=== PATIENT | male | born 1940 | race Caucasian/White ===

== ENCOUNTER 2016-11-25 12:37 | Emergency (ER) | payer MEDICARE, OTHER ==
[~2016-11-25] VITALS: Ht 175.3 cm; Wt 172.4 kg
--- NOTE | ~2016-11-25 | EKG ---
[facility] [address] [place], [place] [address] Draft EK completed, results pending confirmation PATIENT NAME: SERGIO ROA Electrocardiogram DATE OF : 42 PHYSICIAN: PRELIMINARY REPORT #: [id number] REPORT IS CONFIDENTIAL AND NOT TO BE RELEASED WITHOUT AUTHORIZATION
[~2016-11-25 12:37] MED LIST: FUROSEMIDE40 MG PO; GLIPIZIDE ER5 MG PO; LISINOPRIL20 MG PO
[2016-11-25] MEDS ORDERED: LASIX40 MG PO (13:01)
[2016-11-25] MEDS ORDERED: PRINIVIL20 MG PO (13:01)
[2016-11-25] MEDS ORDERED: ASPIRIN81 MG PO (13:01)
== END 2016-11-25 14:59 | disposition short-term general hospital (02) ==
LOC: ED 12:37
DX: I63.9 Cerebral infarction, unspecified (principal); G81.94 Hemiplegia, unspecified affecting left nondominant side; Z88.0 Allergy status to penicillin; Z88.5 Allergy status to narcotic agent; Z79.82 Long term (current) use of aspirin; Z79.899 Other long term (current) drug therapy
CPT/HCPCS: 70450; 80053; 83605; 85025; 93005; 93010; 96374; 99285; G0480; J2997

== ENCOUNTER 2017-01-29 17:58 | Emergency (ER) | payer MEDICARE, OTHER ==
[~2017-01-29] VITALS: Ht 175.3 cm; Wt 172.4 kg
[~2017-01-29 17:58] MED LIST changes: +ASPIRIN81 MG PO; +LASIX40 MG PO; +PRINIVIL20 MG PO
== END 2017-01-29 21:26 | disposition home or self-care (01) ==
LOC: ED 17:58
DX: Z02.89 Encounter for other administrative examinations (principal); I10 Essential (primary) hypertension; E11.9 Type 2 diabetes mellitus without complications; E66.01 Morbid (severe) obesity due to excess calories; Z87.891 Personal history of nicotine dependence; Z88.0 Allergy status to penicillin; Z88.5 Allergy status to narcotic agent; Z79.899 Other long term (current) drug therapy; Z79.82 Long term (current) use of aspirin; Z86.73 Personal history of transient ischemic attack (TIA), and cerebral infarction without residual deficits; Z59.1 Inadequate housing
CPT/HCPCS: 80053; 80176; 81001; 84443; 85025; 99283; G0480

== ENCOUNTER 2017-06-01 05:44 | Emergency (ER) | payer MEDICARE ==
[~2017-06-01] VITALS: Ht 175.3 cm; Wt 169.2 kg
[2017-06-01] MEDS ORDERED: KEFLEX500 MG PO (08:36)
[2017-06-01] MEDS ORDERED: LISINOPRIL10 MG PO (08:47)
[2017-06-02] MEDS ORDERED: GLIPIZIDE XL5 MG PO (11:54)
[2017-06-02] MEDS ORDERED: LISINOPRIL20 MG PO (11:56)
[2017-06-02] MEDS ORDERED: LASIX20 MG PO (11:56)
[2017-06-02] MEDS ORDERED: ATORVASTATIN CA80 MG PO (11:57)
[2017-06-02] MEDS ORDERED: KEFLEX500 MG PO (11:58)
[2017-06-08] MEDS ORDERED: KEFLEX500 MG PO (09:19)
[2017-06-08] MEDS ORDERED: LISINOPRIL10 MG PO (09:19)
== END 2017-06-01 09:00 | disposition home or self-care (01) ==
LOC: ED 05:44
PROC: BT40ZZZ Ultrasonography of Bladder (ICD-10-PCS; principal; 2017-06-01)
DX: N39.0 Urinary tract infection, site not specified (principal); E11.65 Type 2 diabetes mellitus with hyperglycemia; I11.0 Hypertensive heart disease with heart failure; I50.9 Heart failure, unspecified; Z91.14 Patient's other noncompliance with medication regimen; Z87.891 Personal history of nicotine dependence; Z88.0 Allergy status to penicillin; Z88.5 Allergy status to narcotic agent; Z79.84 Long term (current) use of oral hypoglycemic drugs; Z79.899 Other long term (current) drug therapy; Z79.82 Long term (current) use of aspirin
CPT/HCPCS: 51798; 74176; 80053; 81001; 85025; 87077; 87088; 87186; 96374; 99284; J0696; J7030

== ENCOUNTER 2017-06-01 20:29 | Observation (INO) | payer MEDICARE ==
[~2017-06-01] VITALS: Ht 175.3 cm; Wt 160.3 kg
[~2017-06-01 20:29] MED LIST changes: +KEFLEX500 MG PO; +LISINOPRIL10 MG PO
--- NOTE | 2017-06-02 07:15 | NUR ---
PT ARRIVED TO FLOOR VIA STRETCHER WITH PAD EXTRACTION TENDER AT 0650. PT IS ALERT AND ORIENTED. POOR HISTORIAN. RAMBLES FREQUENTLY AND HAS DIFFICULTY FOCUSING. VS STABLE. MULTIPLE BAGS OF BELONGINGS IN ROOM WITH PT. PT RESTING IN BED. STATES MOTOR HOME THAT THEY USED TO LIVE IN WAS STOLEN. UNSURE OF PLACEMENT AT IN.
--- NOTE | 2017-06-02 08:50 | NUR ---
PATIENT SITTING UP IN BED. PATIENT FINISHED BREAKFAST. PATIENT ASKED MY NATIONALITY AND STARTED GUESSING OUT LOUD. PATIENT WOULD TALK IN [place]LLAN AT TIMES. PATIENT KEPT ON ABOUT HOW HE WENT TO [facility] FOR SOMETHING HE DIDN'T DO. FRESH ICE WATER GIVEN. HANDS AND FACE WASHED. ORAL CARE DONE. NO OTHER NEEDS AT THIS TIME.
--- NOTE | 2017-06-02 09:00 | NUR ---
PT SITTING UP IN BED AWAKE AND ALERT. COMMUNITY HEALTH WORKER DEEPTI IN WITH PT DISCUSSING DC PLAN
--- NOTE | 2017-06-02 10:26 | NUR ---
PT UP WALKING IN HAYNES. WALKED 50 FT THEN NEEDED TO SIT DOWN. 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
--- NOTE | 2017-06-02 10:41 | NUR ---
PT UP WITH ASSISTANCE. WALKED 50 FEET IN HALLWAY AND THEN HAD TO REST. DROPPED TO 88% WITH ACTIVITY. TOOK LESS THAN ONE MINUTE TO RECOVER BACK TO 92-94% AT REST.
--- NOTE | 2017-06-02 10:42 | NUR ---
ASSISSTED REFLESHER AMUBLATE PT IN THE HALLWAY AND BACK TO CHAIR IN ROOM. CALL LIGHT WITHIN REACH. NO FURTHER REQUESTS AT THIS TIME.
--- NOTE | 2017-06-02 11:11 | NUR ---
PT BACK TO CHAIR FROM BATHROOM. 1PA WITH FWW. URINE IS DARK AND PUTRID SMELLING. PT STATES IT SMELLS BAD BECAUSE OF MEDICATION HE TAKES. PT IS DIFFICULT OF HEARING AND DOES NOT ALWAYS FOLLOW DIRECTIONS
--- NOTE | 2017-06-02 11:17 | NUR ---
PER DR PENA REQUEST TO CALL PT COORDINATOR INTEGRATED MARKETING, EDILMA RAND. I CALLED NO ANSWER SO MESSAGE WAS LEFT FOR HER TO CALL. 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 THEN HE WAS MOVED BACK TO THIS SIDE OF THE [facility], WHERE SHE HAD FOUND THE ONLY PLACE THAT WOULD TAKE HIM SUCH A ALF OR ASSISTED LIVING WAS [facility] AT THEIR [facility] FAC[facility] IN [place] WHERE HE WENT, BUT GOT KICKED OUT OF THERE WITH A NOTICE THAT HE COULD NEVER GO BACK THERE. SHE STATED THERE IS A WARRENT FOR HIS ARREST AND THAT SHE WOULD SEE WHAT SHE COULD DO ABOUT GETTING HIM PICKED UP HERE AND TAKEN BACK TO SNF, DR PENA IS SAYING THERE IS NO MEDICAL REASON TO KEEP HIM HERE IN THE HOSPITAL.
[2017-06-02] MEDS ORDERED: GLIPIZIDE XL5 MG PO (11:54)
[2017-06-02] MEDS ORDERED: LASIX20 MG PO (11:56)
[2017-06-02] MEDS ORDERED: LISINOPRIL20 MG PO (11:56)
[2017-06-02] MEDS ORDERED: ATORVASTATIN CA80 MG PO (11:57)
[2017-06-02] MEDS ORDERED: KEFLEX500 MG PO (11:58)
--- NOTE | 2017-06-02 11:58 | NUR ---
MED REC COMPLETE
--- NOTE | 2017-06-02 12:13 | NUR ---
PT GIVEN DISCHARGE INFORMATION, EDUCATION AND PRESCRIPTIONS. IV REMOVED WNL. STEAM CONDITIONING OPERATOR IN ROOM. SHE WILL FILL PRESCRIPTION. OFFICER HERE TO TAKE CUSTODY OF PT.
--- NOTE | 2017-06-02 12:23 | NUR ---
PATIENT UP IN CHAIR RECIEVING DISCHARGE ORDERS. PATIENTS PO IN ROOM WITH HIM. NO OTHER NEEDS AT THIS TIME.
[2017-06-08] MEDS ORDERED: LISINOPRIL10 MG PO (09:19)
[2017-06-08] MEDS ORDERED: KEFLEX500 MG PO (09:19)
== END 2017-06-02 12:30 | disposition home or self-care (01) ==
LOC: ED 20:29 → MS 20:30
PROVIDERS: ADMIT Internal Medicine
DX: N39.0 Urinary tract infection, site not specified (principal); R40.0 Somnolence; E11.22 Type 2 diabetes mellitus with diabetic chronic kidney disease; I13.0 Hypertensive heart and chronic kidney disease with heart failure and stage 1 through stage 4 chronic kidney disease, or unspecified chronic kidney disease; N18.3 Chronic kidney disease, stage 3 (moderate); I50.9 Heart failure, unspecified; E78.5 Hyperlipidemia, unspecified; I25.10 Atherosclerotic heart disease of native coronary artery without angina pectoris; I25.2 Old myocardial infarction; E66.01 Morbid (severe) obesity due to excess calories; R01.1 Cardiac murmur, unspecified; Z87.891 Personal history of nicotine dependence; Z79.899 Other long term (current) drug therapy; Z68.43 Body mass index [BMI] 50.0-59.9, adult; Z59.0 Homelessness; Z86.73 Personal history of transient ischemic attack (TIA), and cerebral infarction without residual deficits; Z91.19 Patient's noncompliance with other medical treatment and regimen; Z88.5 Allergy status to narcotic agent; Z88.0 Allergy status to penicillin; Z88.8 Allergy status to other drugs, medicaments and biological substances
CPT/HCPCS: 36600; 70450; 71045; 80048; 82140; 82803; 83605; 85025; 85610; 85730; 96374; 99285; G0378; G0480; J0696

== ENCOUNTER 2017-06-30 02:00 | Emergency (ER) | payer MEDICARE ==
[~2017-06-30] VITALS: Ht 175.3 cm; Wt 160.3 kg
[~2017-06-30 02:00] MED LIST changes: +ATORVASTATIN CA80 MG PO; +GLIPIZIDE XL5 MG PO; +LASIX20 MG PO
== END 2017-06-30 03:34 | disposition home or self-care (01) ==
LOC: ED 02:00
DX: M79.604 Pain in right leg (principal); M79.605 Pain in left leg; G89.29 Other chronic pain; I11.0 Hypertensive heart disease with heart failure; I50.9 Heart failure, unspecified; E11.40 Type 2 diabetes mellitus with diabetic neuropathy, unspecified; Z86.73 Personal history of transient ischemic attack (TIA), and cerebral infarction without residual deficits; Z59.0 Homelessness; Z87.891 Personal history of nicotine dependence; Z88.0 Allergy status to penicillin; Z88.5 Allergy status to narcotic agent; Z88.8 Allergy status to other drugs, medicaments and biological substances; Z79.899 Other long term (current) drug therapy
CPT/HCPCS: 99282

== ENCOUNTER 2017-07-02 08:15 | Emergency (ER) | payer MEDICARE ==
[~2017-07-02] VITALS: Ht 175.3 cm; Wt 160.3 kg
[2017-07-02] MEDS ORDERED: K-TAB ER20 MEQ PO (14:20)
[2017-07-02] MEDS ORDERED: FUROSEMIDE40 MG PO (14:20)
== END 2017-07-02 14:34 | disposition home or self-care (01) ==
LOC: ED 08:15
DX: R60.0 Localized edema (principal); R53.1 Weakness; E66.9 Obesity, unspecified; I11.0 Hypertensive heart disease with heart failure; I50.9 Heart failure, unspecified; E11.9 Type 2 diabetes mellitus without complications; Z86.73 Personal history of transient ischemic attack (TIA), and cerebral infarction without residual deficits; Z88.0 Allergy status to penicillin; Z88.5 Allergy status to narcotic agent; Z88.8 Allergy status to other drugs, medicaments and biological substances; Z79.899 Other long term (current) drug therapy; Z79.84 Long term (current) use of oral hypoglycemic drugs
CPT/HCPCS: 80053; 81001; 85025; 99283

== ENCOUNTER 2017-07-18 06:51 | Emergency (ER) | payer MEDICARE ==
[~2017-07-18] VITALS: Ht 175.3 cm; Wt 163.3 kg
[~2017-07-18 06:51] MED LIST changes: +K-TAB ER20 MEQ PO
== END 2017-07-18 10:05 | disposition home or self-care (01) ==
LOC: ED 06:51
DX: S00.12XA Contusion of left eyelid and periocular area, initial encounter (principal); S00.81XA Abrasion of other part of head, initial encounter; I11.0 Hypertensive heart disease with heart failure; I50.9 Heart failure, unspecified; E11.9 Type 2 diabetes mellitus without complications; Z86.73 Personal history of transient ischemic attack (TIA), and cerebral infarction without residual deficits; Z88.0 Allergy status to penicillin; Z88.5 Allergy status to narcotic agent; Z88.8 Allergy status to other drugs, medicaments and biological substances; W17.89XA Other fall from one level to another, initial encounter; Y92.89 Other specified places as the place of occurrence of the external cause
CPT/HCPCS: 70450; 80053; 85025; 99284; G0480

== ENCOUNTER 2017-08-03 07:00 | Emergency (ER) | payer MEDICARE, OTHER ==
[~2017-08-03] VITALS: Ht 175.3 cm; Wt 163.3 kg
--- NOTE | 2017-08-03 19:36 | EKG ---
[facility] [address] [place] [address] Signed Sinus rhythm with 1st degree AV block Left axis deviation Inferior infarct , age undetermined Possible Anterior infarct , age undetermined Abnormal ECG No previous ECGs available Confirmed by JONATHAN PENA MD ([id number]) on 08/03/2017 7:36:05 PM Electronically Signed By: JONATHAN PENA MD 08/03/171935 PATIENT NAME: SERGIO ROA Electrocardiogram DATE OF : 42 PHYSICIAN: JONATHAN PENA MD REPORT #: [id number] REPORT IS CONFIDENTIAL AND NOT TO BE RELEASED WITHOUT AUTHORIZATION
== END 2017-08-03 13:36 | disposition home or self-care (01) ==
LOC: ED 07:00
DX: R53.83 Other fatigue (principal); G47.30 Sleep apnea, unspecified; I10 Essential (primary) hypertension; E11.9 Type 2 diabetes mellitus without complications; Z87.891 Personal history of nicotine dependence; Z88.0 Allergy status to penicillin; Z88.5 Allergy status to narcotic agent; Z88.8 Allergy status to other drugs, medicaments and biological substances; Z79.899 Other long term (current) drug therapy
CPT/HCPCS: 71045; 80053; 81001; 84484; 85025; 93005; 93010; 96360; 99284; J7040

== ENCOUNTER 2017-08-05 04:58 | Emergency (ER) | payer MEDICARE, OTHER ==
[~2017-08-05] VITALS: Ht 175.3 cm; Wt 163.3 kg
== END 2017-08-05 07:45 | disposition home or self-care (01) ==
LOC: ED 04:58
DX: S90.811A Abrasion, right foot, initial encounter (principal); W22.8XXA Striking against or struck by other objects, initial encounter; Z59.0 Homelessness; I11.0 Hypertensive heart disease with heart failure; I50.9 Heart failure, unspecified; E11.9 Type 2 diabetes mellitus without complications; Z87.891 Personal history of nicotine dependence; Z88.0 Allergy status to penicillin; Z88.5 Allergy status to narcotic agent; Z88.8 Allergy status to other drugs, medicaments and biological substances
CPT/HCPCS: 73630; 90471; 90715; 99283

== ENCOUNTER 2017-08-22 12:15 | Inpatient (IN) | payer MEDICARE, OTHER ==
[~2017-08-22] VITALS: Ht 175.3 cm; Wt 167.9 kg
[2017-08-22] MEDS ORDERED: POTASSIUM CHLO20 ME1 PO (12:25)
[2017-08-22] MEDS ORDERED: FUROSEMIDE40 MG PO (12:25)
[2017-08-22] MEDS ORDERED: LISINOPRIL10 MG PO (12:25)
--- NOTE | 2017-08-22 18:50 | NUR ---
Nurse Rapp, Nurse Swan, and I transfered pt to shower chair via yusuf lift and then pt was showered. pt had fingernail/toenail care done pt was shaved, and transfered back to bed via yusuf lift. Bentley Rapp and Sosa are now doing cath care on pt.
--- NOTE | 2017-08-22 19:01 | NUR ---
Report received from NÉSTOR Arauz. pt resting in bed eating dinner and does not voice any requests or concerns and appears to be in no distress. Call light in reach.
--- NOTE | 2017-08-22 19:34 | NUR ---
REPORT RC'D FROM ER, PT ARRIVED VIA STRETCHER, OLE LIFT TO BED. SALINE LOCKED. RESPIRATORY RATE EVEN AND UNLABORED. VITALS STABLE. FULL SKIN ASSESSMENT AND BATH COMPLETED. REPORT GIVEN TO HAND BOBBIN CLEANER NURSE. FSBS 109, NO INUSLIN GIVEN, DINNER AT BEDSIDE. ADMIT ASSESSMENT TO BE COMPLETED BY HAND BOBBIN CLEANER NURSE.
--- NOTE | 2017-08-22 21:24 | NUR ---
PT RESTING ON RIGHT LATERAL SIDE AND RESPIRATIONS VISABLE. PT APPEARS TO BE SLEEPING COMFORTABLY. CALL LIGHT IN REACH.
--- NOTE | 2017-08-22 21:28 | NUR ---
CHARGE NURSE ROUNDING NOTE:, CALL LIGHT AND FLUIDS WITHING HANDS REACH. OLE LIFT, NO C./O PAIN OR REQUESTS
--- NOTE | 2017-08-22 22:15 | NUR ---
PT RESTING IN BED ON RIGHT LATERAL SIDE, RESPIRATIONS VISABLE AND PT APPEARS TO BE SLEEPING COMFORTABLY. CALL LIGHT IN REACH.
--- NOTE | 2017-08-23 00:05 | NUR ---
PT RESTING IN BED, RESPIRATIONS EVEN AND UNLABORED. PT APPEARS TO BE SLEEPING COMFORTABLY. CALL LIGHT IN REACH.
--- NOTE | 2017-08-23 03:10 | NUR ---
PT LAYING SUPINE IN BED, EYES CLOSED, RESPIRATIONS EVEN AND UNLABORED. PT APPEARS TO BE SLEEPING COMFORTABLY. CALL LIGHT IN REACH.
--- NOTE | 2017-08-23 04:10 | NUR ---
PT RESTING ON RIGHT LATERAL SIDE, RESPIRATIONS EVEN AND UNLABORED. PT ALERT TO VOICE AND ASSESSMENT COMPLETED AT THIS TIME. CATHETER BAG EMPTIED OF 350MLS CLEAR YELLOW URINE AND PT GIVEN FRESH ICE WATER. CALL LIGHT IN REACH AND NO FURTHER CONCERNS OR REQUESTS VOICED.
--- NOTE | 2017-08-23 05:59 | NUR ---
pt resting supine in bed texting on his cell phone. pt denies needs at this time. call light and ice water in reach
--- NOTE | 2017-08-23 06:52 | NUR ---
PT ASSISTED UP IN BED WITH OLE LIFT. PER PT REQUEST FRESH COFFEE GIVEN AT THIS TIME, CALL LIGHT IN REACH AND PT STATES "I'M COMFORTABLE THANK YOU".
--- NOTE | 2017-08-23 07:31 | NUR ---
RECIEVED BEDSIDE REPORT FROM NÉSTOR JOHNS. PT AWAKE, ALERT. ASSISTED PT TO POSITION FOR COMFORT, SITTING UP AT SIDE OF BED. PT EDUCATED REGARDING FALL PRECAUTIONS, NEED TO CALL FOR ASSISTANCE PRIOR TO ANY SELF TRANSFER ATTEMPTS. PT VERBALIZED UNDERSTANDING.
[2017-08-23] MEDS ORDERED: EXCEDRIN MIGRA1 EAC2 PO (07:42)
--- NOTE | 2017-08-23 07:43 | NUR ---
Medications reconciled using information from prescription bottles brought in from facility. Only 3 medications, furosemide, KCl and Excedrin Migraine generic equivalent
--- NOTE | 2017-08-23 08:22 | NUR ---
assisted nurse in transferring the patgeint to the commode, when in with another pump house operator and cleaned him up and set him up for breakfast.
--- NOTE | 2017-08-23 11:06 | NUR ---
PT LAYING IN BED, TALKING ON PHONE. PLACED HAND TOWELS AND PILLOW CASE UNDER SCROTUM TO ELEVATE. PT TOLERATED WELL. PT HAS PERSONAL SUPPLIES AND CALL LIGHT IN REACH, DENIED NEEDS.
--- NOTE | 2017-08-23 14:00 | NUR ---
PT SITTING UP IN RECLINER. ELEVATED SCROTUM ON 2 HAND TOWELS IN PILLOW CASE. PT TOLERATED THIS WELL. PERSONAL SUPPLIES AND CALL LIGHT IN REACH. PT DENIED OTHER NEEDS.
--- NOTE | 2017-08-23 16:49 | NUR ---
PT LAYING IN BED, ASSISTED PT IN REARANGING WASHCLOTH WITH PILLOW CASE TO ELEVATE SCROTUM. PT DENIED OTHER NEEDS. PERSONAL SUPPLIES AND CALL LIGHT IN REACH.
--- NOTE | 2017-08-23 19:05 | NUR ---
PT SITTING UP ON EDGE OF BED. HAND TOWELS IN PILLOWCASE HAD FALLEN OUT FROM UNDER SCROTUM TO FLOOR. PLACED NEW HAND TOWELS IN PILLOWCASE UNDER SCROTUM TO ELEVATE. PT TOLERATED THIS WELL. PERSONAL SUPPLIES AND CALL LIGHT IN REACH.
--- NOTE | 2017-08-23 19:10 | NUR ---
pt sitting up at side of bed, states "i feel a lot better today, there's no pain". Report received from farhana PALM. call light in reach.
--- NOTE | 2017-08-23 21:26 | NUR ---
CHARGE NURSE ROUNDING NOTE:, PT LAYING ON LEFT SIDE, WATCHING TV. F/C PATENT. NO C/O APIN OR REQUESTS, CALL LIGHT AND FLUIDS WITHIN HANDS REACH
--- NOTE | 2017-08-23 22:55 | NUR ---
PER PT REQUEST PT PROVIDED WITH SMALL VEGGY PLATE AND SANDWICH. PT REPOSITIONED IN BED AND SCROTUM IS ELEVATED ON ROLLED TOWEL. CALL LIGHT IN REACH AND PT STATES "I FEEL FINE, THANK YOU".
--- NOTE | 2017-08-24 01:37 | NUR ---
PT RESTING SUPINE IN BED, ALERT TO VOICE. PT ASSESSMENT PERFORMED. CALL LIGHT IN REACH AND PT DENIES CONCERNS OR REQUESTS.
--- NOTE | 2017-08-24 04:27 | NUR ---
PT RESTING ON RIGHT LATERAL SIDE. RESPIRATIONS UNLABORED, EYES CLOSED. PT APPEARS TO BE SLEEPING COMFORTABLY. CALL LIGHT IN REACH.
--- NOTE | 2017-08-24 06:41 | NUR ---
PT HAS SLEPT THE MAJORITY OF NIGHT. PT HAS HAD GOOD URINE OUTPUT THROUGH DIEGO CATHETER SCROTUM HAS REMAINED ELEVATED ON TOWEL ROLL. PT CONTINUES TO HAVE LARGE AMOUNT OF EDEMA AND SOME REDNESS TO AFFECTED TISSUE. PT HAS DENIED PAIN THIS SHIFT.
--- NOTE | 2017-08-24 07:20 | NUR ---
RECIEVED BEDSIDE REPORT FROM NÉSTOR JOHNS. PT ASLEEP, AROUSED TO VERBAL STIMULI. DENIED PAIN. PERSONAL SUPPLIES AND CALL LIGHT IN REACH.
--- NOTE | 2017-08-24 07:52 | NUR ---
PT ASSISTED TO SIT UP TO EDGE OF BED, SCROTUM ELEVATED. PT EDUCATED REGARDING FALL PRECAUTIONS, WELL NUTRITION. PT VERBALIZED UNDERSTANDING. PERSONAL SUPPLIES AND CALL LIGHT IN REACH. PT DENIED NEEDS.
--- NOTE | 2017-08-24 08:12 | NUR ---
PATIENT SITTING UP ON BEDSIDE, EATING BREAKFAST. CALL LIGHT IN REACH. NO OTHER NEEDS AT THIS TIME.
--- NOTE | 2017-08-24 09:14 | NUR ---
THIS PSYCHIATRIC NP DISCUSSED WITH PATIENT POTENTIALS FOR A SHOWER LATER THIS EVENING. PATIENT VOICES HIS CONCERNS ABOUT LEAVING TODAY. RN NOTIFIED.
--- NOTE | 2017-08-24 09:18 | NUR ---
PT LAYING IN BED. PATIENT IS HOMELESS. STATES HE [facility] T[facility] [place] [facility] THROUGH THEM. DISCUSSED WITH PATIENT THAT PHYSICIAN THINKS HE MIGHT NEED SNF AT DISCHARGE. PATIENT UNSURE HE WANTS TO DO THAT. EXPLAINED HE WILL HAVE THE DIEGO AT DISCHARGE, ETC. HE THEN STATED "I DON'T THINK I WANT THAT HANGING OUT". DISCUSSED LEG BAGS, ETC. PATIENT SAYS "I'LL THINK ABOUT THIS".
--- NOTE | 2017-08-24 10:14 | NUR ---
PT LAYING IN BED, AWAKE, ALERT. ASSISTED PT TO POSITION TOWEL IN A PILLOW CASE UNDER HIS SCROTUM TO ELEVATE. PT DENIED NEEDS AT THIS TIME. PERSONAL SUPPLIES AND CALL BUTTON IN REACH.
--- NOTE | 2017-08-24 10:22 | NUR ---
PATIENT RESTING IN BED, EYES CLOSED. PATIENT AWOKE WHILE THIS ANIMAL CRUELTY INVESTIGATOR TOOK VITALS. PATIENT SHOWS SIGNS OF AGGRESSION AT NURSE AFTER SHE ELEVATES HIS SCROTUM AND EXITS THE ROOM. PATIENT VOICES HIS URGE TO HIT PEOPLE WHEN STARTLED OR WHEN IN PAIN. PATIENT STATES HE IS TRYING HIS BEST TO "HOLD BACK FROM HITTING PEOPLE, BUT SOMETIMES I JUST CANT HELP IT". RN NOTIFIED. PATIENT RESTING ON HIS BACK IN BED. CALL LIGHT IN REACH. NO OTHER NEEDS AT THIS TIME.
--- NOTE | 2017-08-24 11:42 | NUR ---
THIS GIS ANALYST DEVELOPER ASSISTED PHYSICAL THERAPY TO STAND PATIENT AND PIVOT TO SHOWER CHAIR. PATIENT APPEARED VERY UNCOMFORTABLE WITH THIS GIS ANALYST DEVELOPER ASSISTING HIM WITH A SHOWER. THIS GIS ANALYST DEVELOPER AND PHYSICAL THERAPIST PRIMO REASSURED PATIENT THAT THIS GIS ANALYST DEVELOPER WOULD RESPECT HIS MODESTY. PATIENT SHOWERED WITH ASSISTANCE. PATIENT REQUESTED THAT NÉSTOR DAMICO ASSIST WITH PERICARE/CATHCARE RATHER THAN THIS GIS ANALYST DEVELOPER. RN PERFORMED CATHCARE AND PERICARE. PATIENT DRESSED IN CLEAN GOWN, TWO PERSON PIVOT TRANSFERRED TO BEDSIDE RECLINER WITH WALKER. PATIENT SITTING UP IN BEDSIDE RECLINER, ORAL CARE PERFORMED. CALL LIGHT IN REACH. FRESH ICE WATER AT BEDSIDE TABLE. NO OTHER NEEDS AT THIS TIME.
--- NOTE | 2017-08-24 12:40 | NUR ---
PT SITTING UP IN RECLINER. HAS SCROTUM ELEVATED ON TOWELS IN PILLOWCASE. PERSONAL SUPPLIES AND CALL BUTTON IN REACH. PT DENIED NEEDS AT THIS TIME.
--- NOTE | 2017-08-24 14:21 | NUR ---
PATIENT SITTING UP IN BEDSIDE RECLINER, EATING LUNCH. CALL LIGHT IN REACH. NO OTHER NEEDS AT THIS TIME.
--- NOTE | 2017-08-24 14:24 | NUR ---
DR PENA STATES PATIENT NEEDS TO GO TO SNF FOR SAFE DISCHARGE. SPOKE WITH PATIENT IN ROOM. HE AGREES TO GO TO [facility]. FACE SHEET, CLINICALS FAXED TO [phone]. FAX CONFIRMATION RECEIVED.
--- NOTE | 2017-08-24 16:57 | NUR ---
PT LAYING IN BED, RESTING WITH EYES CLOSED. HAS SCROTUM ELEVATED WITH TOWEL.
--- NOTE | 2017-08-24 17:03 | NUR ---
PT ON RA, LUNGS CTA, DIMINISHED IN BASES. HRR. PT HAS 1-2 + EDEMA TO BLE, PT ENCOUARGED TO ELEVATE FEET, WHICH HE ELEVATED WITH RECLINER FOOT REST, AND ON PILLOWS WHEN IN BED. SCROTUM REMAINS SWOLLEN, REDDENED, WARM. SCROTUM ELEVATED ON TOWELS IN A PILLOW CASE. PT TOOK A SHOWER TODAY WITH ASSISTANCE FROM [facility]LLERMO AND THIS RN. COUDE CATH INTACT, DRAINING QUANTITY SUFFICIENT URINE. PT UP WITH 2 PERSON ASSIST WITH FWW, FOR SHORT DISTANCES, PIVOT TRANSFERS. PT DENIED PAIN THIS SHIFT. APETITE GOOD. PT ALERT, ORIENTED X 4. PLEASANT AND COOPERATIVE WITH CARES.
--- NOTE | 2017-08-24 19:42 | NUR ---
Pt up resting in fatoumata with scrotum and lehs elevated. call light in reach and pt agrees to call when he is readyy to transfer to bed. pt is alert and oriented and denies having nay concnerns or requests. Report received from NÉSTOR Pradhan.
--- NOTE | 2017-08-24 23:43 | NUR ---
pt resting in bed, scrotum and legs elevated on rolled tow/pillows respectivley. fresh water provided and call light in reach. respirations even and unlabored and pt denies needs/concerns at this time.
--- NOTE | 2017-08-25 03:51 | NUR ---
pt resting on right lateral side, respirations visable, eyes closed. pt appears to be in no distress. call light in reach.
--- NOTE | 2017-08-25 07:00 | NUR ---
RC'D REPORT FROM MERGERS AND ACQUISITIONS ASSOCIATE NURSE. PT RESTING COMFORTABLY IN BED, NO ACUTE DISTRESS NOTED, RESPIRATIONS EVEN AND UNDLABORD, ALERT AND RESPONSIVE.
--- NOTE | 2017-08-25 07:00 | NUR ---
pt resting supine in bed alert to voice, denies pain. respirations even and unlabored and pt appears to be in no distress. pt slept well through night. Pt had good clear urine output through varner cath. Scrotum swelling and redness appears to have been decreasing. Also candidiasis skin rash to left arm pit and right side fold have decreased in redness and appear to be healing with bid topical nystatin powder tx's. Pt has kept scrotum elevated on rolled towel. Pt remains 2 person assist with short transfers to bedside commode or to chair.
--- NOTE | 2017-08-25 09:15 | NUR ---
PT RESTING IN BED COMFORTABLY. PT A&O X4. PT CURRENTLY ON RA, RESPIRATIONS EVEN AND UNLABORD, LUNGS CLEAR IN UPPER LOBES AND DIM IN LOWER LOBES. REDDENED AREA UNDER LEFT AXILLARY AND RIGHT INFRAMAMMARY MUCH IMPROVED, NYSTATIN APPLIED. JITENDRA CARE AND DIEGO CARE COMPLETED. SCROTAL EDEMA GREATLY IMPROVED, CONTINUES TO BE RED, NYSTATIN APPLIED TO GROIN. PT 2PA WITH FWW TO CHAIR. CALL LLIGHT WITHIN REACH. PT DENEIS OTHER NEEDS AT THIS TIME.
--- NOTE | 2017-08-25 09:30 | NUR ---
RECIEVED NOTIFICATION FROM [facility] THAT DUE TO HIS CRIMINAL HX THEY WOULD NOT BE ABLE TO TAKE HIM. CALLED [facility] AND [facility] FOR V[facility] AND THE [facility] STATED THEY HAD NOT SEEN OR HEARD FROM PT SINCE 2014. TALKED TO THE [facility] AND THEY STATED THEY HAD NO KNOWLEDGE OF THE PT ATTEMPTING TO SEEK PLACEMENT IN THEIR FACILITY. PT WOULD LIKE US TO CALL AND SEE IF HE WOULD BE ELIGIBLE TO GO TO THE [facility]. TOLD HIM I WOULD LOOK INTO IT FOR HIM.
--- NOTE | 2017-08-25 12:25 | NUR ---
PT USED CALL LIGHT APPRORIATELY AND REQUESTING ADDITIONAL IUNFORMATION REGARDING POSSIBLE TRANSFER TO LONGTERM FACILITY. INFORMED PT INFORMATION WOULD BE PASSED ON TO CASE MANAGEMENT. PT VERBALIZED AN UNDERSTANDING AND WAS AGREE. SPOKE WITH SERVER ASSISTANT LARRY REGARDING REQUESTED INFORMATION, LARRY TO FOLLOW UP.
--- NOTE | 2017-08-25 13:15 | NUR ---
PT 2 PA WITH FWW TO COMMODE. PT HAD BM, DIEGO BAG DRAINED AND TWO SMALL CLOTS NOTED. C/O PRESSURE IN BLADDER, DIEGO REPOSITIONED. PT ASSISTED BACK TO CHAIR.
--- NOTE | 2017-08-25 14:29 | NUR ---
PT COMPLAINT OF BLADDER DISCOMFORT. DIEGO CATH REPOSITIONED, DRAINING FREELY, PT STATES DISCOMFORT HAS RESOLVED. PT DENIES OTHER NEEDS AT THIS TIME.
== END 2017-08-25 16:59 | disposition swing bed (61) | DRG 728 ==
LOC: ED 12:15 → MS 16:02
PROVIDERS: ADMIT Internal Medicine
DX: N49.2 Inflammatory disorders of scrotum (principal); Z68.43 Body mass index [BMI] 50.0-59.9, adult; R32 Unspecified urinary incontinence; B37.2 Candidiasis of skin and nail; E11.22 Type 2 diabetes mellitus with diabetic chronic kidney disease; I12.9 Hypertensive chronic kidney disease with stage 1 through stage 4 chronic kidney disease, or unspecified chronic kidney disease; N18.3 Chronic kidney disease, stage 3 (moderate); I25.10 Atherosclerotic heart disease of native coronary artery without angina pectoris; I25.2 Old myocardial infarction; E66.01 Morbid (severe) obesity due to excess calories; E78.5 Hyperlipidemia, unspecified; Z79.899 Other long term (current) drug therapy; Z86.73 Personal history of transient ischemic attack (TIA), and cerebral infarction without residual deficits; Z59.0 Homelessness; Z99.3 Dependence on wheelchair; Z88.5 Allergy status to narcotic agent; Z88.0 Allergy status to penicillin; Z88.8 Allergy status to other drugs, medicaments and biological substances
CPT/HCPCS: 36415; 76870; 80053; 81001; 83036; 85025; 97110; 97161; 97530; J0696; J1650; J1815

== ENCOUNTER 2017-08-25 17:00 | Inpatient (IN) | payer MEDICARE, OTHER ==
[~2017-08-25] VITALS: Ht 175.3 cm; Wt 167.9 kg
[~2017-08-25 17:00] MED LIST changes: +EXCEDRIN MIGRA1 EAC2 PO; +POTASSIUM CHLO20 ME1 PO
--- NOTE | 2017-08-25 18:34 | NUR ---
PT TRANSFERED TO SWING BED. PT ON RA, LUNG SOUNDS CLEAR AND DIM IN BASES. PT TOLERATING ADA DIET. NO ACCU CHECKS, NO INSULIN. IV SALINE LOCKED. IV ROCEPHINE AND ORAL DOXY. PT UP TO CHAIR FOR MOST OF DAY, 2PA WITH FWW. SCROTAL EDEMA SIGNIFICANTLY IMPROVED. DIEGO QS, C/O PRESSURE, BLADDER SCAN ZERO, CATH REPOSITIONED, PT HAD BM TODAY.
--- NOTE | 2017-08-25 19:15 | NUR ---
PT RESSTING IN BED, RESPIRATIONS EVEN AND UNLABORED. LUNG SOUNDS CLEAR IN UPPER PRESTON AND DIM IN BILAT BASES. PT DENIES SOB/PAIN OR ANY OTHER SYMPTOMS. FRESH WATER AND CALL LIGHTIN REMAIN IN REACH.
--- NOTE | 2017-08-26 00:47 | NUR ---
answered call light. pt requests ans receives fresh ice water and door also opened per pt request. call light in reach. pt tates he is turning every few hours and feels comfortable with no pain/sob. call light and water in reach.
--- NOTE | 2017-08-26 03:58 | NUR ---
pt resting on right lateral side, eyes closed and respirations even and unlabored. pt appears to be sleeping comfortably. call light and water in reach.
--- NOTE | 2017-08-26 05:46 | NUR ---
PT HAS SLEPT THROUGH THE NIGHT AND HAS DENIED PAIN OR SOB. REDNESS AND SWELLING TO SCROTUM HAS CONTINUED TO IMPROVE HAS THE REDNESS TO LEFT FA AND RIGHT SIDE. PT AMBULATES WITH TWO PERSON ASSIST TO AND FROM CHAIR WITH FWW. PT HAS BEEN VOIDING ADEQUATE AMOUNTS THROUGH DIEGO CATH WHICH REMAINS IN PLACE.
--- NOTE | 2017-08-26 07:05 | NUR ---
REPORT RC'D FROM RECONCILIATION CLERK NURSE. PT RESTING IN BED WITH EYES CLOSED, RESPIRATIONS EVEN AND UNLABORD, NO ACUTE DISTRESS NOTED.
--- NOTE | 2017-08-26 09:30 | NUR ---
PT RESTING IN BED COMFORTABLY, NO ACUTE DISTRESS NOTED. ALL MEDICATION ADMINISTERED. PT A&O X3 AND RESPONDING APPROPRIATELY. RESPIRATIONS EVEN AND UNLABORED, LUNGS SOUND CLEAR AND SLIGHTLY DIMINISHED THROUGHOUT ALL PRESTON. NYSTATIN APPLIED TO LEFT AXILLA, RIGHT INFRAMAMMARY, AND SCROTUM. AXILLA AND INFRAMAMMARY MUCH IMPROVED, MINIMAL REDDNESS NOTED. SCROTUM EDEMA CONTINUE TO IMPROVE, REDDNESS ALSO IMPROVED, PT DENIES PAIN OR PRESSURE AT THIS TIME.
--- NOTE | 2017-08-26 12:35 | NUR ---
CALL LIGHT ANSWERED, PT REQUESTING FOOD TRAY BE REMOVED, NO OTHER CONCERNS OR REQUESTS AT THIS TIME.
--- NOTE | 2017-08-26 14:10 | NUR ---
PT RESTING COMFORTABLY IN CHIAR WATCHING TV, NO ACUTE DISTRESS NOTED. NO OTHER CONCERNS OR REQUEST AT THIS TIME.
--- NOTE | 2017-08-26 14:16 | NUR ---
PT WAS SITTING IN CHAIR, MAINLY ABSORBED IN NOT GETTING ENOUGH TO EAT. PT WAS VERY DESCRIPTIVE IN DESCRIBING WHAT HE WAS WILLING TO EAT TO SATISFY HIS HUNGAR. EXTENDED A BLESSING, WILL FOLLOW NEEDED
--- NOTE | 2017-08-26 15:10 | NUR ---
CALL LIGHT ANSWERED, PT REQUESTING TO BE REPOSITIONED. OFFERED PT A SHOWER AT THIS TIME, PT AGREEABLE. PT 2PA WITH FWW FROM CHAIR TO SHOWER CHAIR, TOLERATED WELL.
--- NOTE | 2017-08-26 17:30 | NUR ---
PT 2PA TO SHOWER CHAIR. 2 PA TO SHOWER. PT SHAVED. DIEGO CARE COMPLETED. PT ASSISTED BACK TO CHAIR. PT DENIES OTHER NEEDS AT THIS TIME.
--- NOTE | 2017-08-26 18:35 | NUR ---
PT UP IN CHAIR FOR MOST OF DAY. SHOWER COMPLETED. 2PA WITH FWW SHORT DISTANCE, PT/OT ORDERED, BRACE ORDERED PER PT RECCOMMENDATION. A&O X3, RESPONDING APPROPIRATELY. LUNG SOUNDS CLEAR AND DIM IN BASES, ON RA, RESPIRATIONS EVEN AND UNLABORED. TOLERATING ADA DIET, NO ACCU CHECKS. NEW 20G IV TO RFA, PATENT. DIEGO CATH IN PLACE DRAINING YELLOW URINE, WNL. SCROTAL EDEMA AND REDNESS MUCH IMPROVED. LEFT AXILLIARY CREASE AND RIGHT INFRAMAMMARY REDNESS MUCH IMPROVED. NYSTATIN POWER APPLIED TO ALL REDDENED AREAS.
--- NOTE | 2017-08-26 19:02 | NUR ---
REPORT RECEIVED FROM NÉSTOR MONTANA. PT RESTING IN BED DENIES NEEDS AND APPEARS COMFORTABLE. CALL LIGHT IN REACH.
--- NOTE | 2017-08-26 22:30 | NUR ---
Pt assisted with transfering from chair to bed with one person assist. HS medications administered, pt states "i am feeling a lot better today". call light in reach and no concerns or requests verbalized.
--- NOTE | 2017-08-27 01:24 | NUR ---
PT RESTING IN BED, CALL LIGHT IN REACH. RESPIRATIONS ARE EVEN AND UNLABORED. EYES CLOSED. PT APPEARS TO BE SLEEPING COMFORTABLY.
--- NOTE | 2017-08-27 05:01 | NUR ---
pt resting on left lateral side, RR18, eyes closed. Pt appears to be sleeping comfortably. call light in reach.
--- NOTE | 2017-08-27 06:33 | NUR ---
pt appears to have slept well through the night. Edema to scrotum has continued to improve as has rash to left chest and right side. pt's lung sounds have remained clear in upper esqueda and diminished in bilat bases. Pt was able to transfer from chair to bed with one person assist with FWW.
--- NOTE | 2017-08-27 07:20 | NUR ---
REPORT RC'D FROM COMPENSATION SUPERVISOR NURSE. PT RESTING IN BED WITH EYES CLOSED, NO ACUTE DISTRESS NOTED, RESPIRATION EVEN AND UNLABORED.
--- NOTE | 2017-08-27 09:49 | NUR ---
PT SITTING AT EDGE OF BED COMFORTABLY. NYSTATIN APLIED TO LEFT AXILLA, RIGHT INFRAMAMMARY, AND GROIN. REDDNESS TO AXILLA AND INFRAMAMMARY MUCH IMPROVED. SCTROAL EDEMA CONTINUE TO IMPROVE AND REDDNESS MUCH IMPROVED. DIEGO CATH IN PLACE DRAINING YELLOW URINE, CATH CARE COMPLETED, SCANT AMOUNT OF CLEMENS DRAINAGE NOTED AROUND PENIS. LUNG SOUNDS ARE CLEAR AND FAINT THROUGHOUT ALL LUNG FEILDS, RESPIRATIONS EVEN AND UNLABORED ON ROOM AIR. PT DENIES PAIN. NO OTHER COMPLAINTS OR CONCERNS AT THIS TIME.
--- NOTE | 2017-08-27 11:13 | NUR ---
PT RESTING COMFORTABLY IN CHIR WATCHING TV AND DOING CROSSWORD.
--- NOTE | 2017-08-27 14:34 | NUR ---
PT WAS SITTING IN CHAIR, EATING LUNCH, AND REALLY ENJOYING IT. PT MENTIONED THAT HE DIDN'T SLEEP WELL LAST NIGHT. PT HAD A VISION OF A FALLEN SOLDIER THAT PASSED HERE LAST NIGHT, AND IT REALLY TOUCHED HIM. DEBRIEFED FOR A MOMENT, EXTENDED A BLESSING AND WILL RETURN NEEDED
--- NOTE | 2017-08-27 15:45 | NUR ---
PT RESTING IN BED WATCHING TV, NO ACUTE DISTRESS NOTED. NO CONCERNS OR REQUESTS AT THIS TIME.
--- NOTE | 2017-08-27 18:32 | NUR ---
CALL LIGHT ANSWERED. PT 1 PA WITH FWW TO BEDSIDE COMMODE. CALL LIGHT WITHIN REACH.
--- NOTE | 2017-08-27 18:33 | NUR ---
PT UP IN CHAIR WATCHING TV. RESPIRATIONS EVEN AND UNLABORED, NO ACUTE DISTRESS NOTED.
--- NOTE | 2017-08-27 19:26 | NUR ---
PT UP IN CHAIR MOST OF DAY. PHY THERAPY AMBULATED PT WITH FWW, TOLERATED WELL. PT A&O X3, RESPONDING APPROPRIATELY AND PLEASANT. LUNG SOUNDS CLEAR BUT SLIGHTLY DIMISHED THROUGHOUT. LEFT AXILLA AND RIGHT INFRAMAMMARY REDDNESS MUCH IMPROVED, NYSTATIN APPLIED. SCROTAL EDEMA MUCH IMPROVED, NYSTATIN APPLIED, DIEGO CARE COMPLETED, SMALL AMOUNT OF CLEMENS DISCHARGE FROM PENIS. RFA IV SALINE LOCKED, PATENT, WNL.
--- NOTE | 2017-08-27 19:47 | NUR ---
PATIENT RESTING QUIETLY IN BED SUPINE WATCHING TV. PATIENT HAS NO NEEDS AT THIS TIME. CALL LIGHT IN REACH.
--- NOTE | 2017-08-27 20:29 | NUR ---
PATIENT HAS 2 FEMALE VISITORS HERE WITH HIM AT THIS TIME. PATIENT SITTING ON THE SIDE OF THE BED VISITING. PM MEDS HAVE BEEN GIVEN AND PATIENT DOING WELL. IV FLUSHES WITHOUT DIFFICULTY AND CALL LIGHT IS IN REACH.
--- NOTE | 2017-08-27 21:52 | NUR ---
CHARGE NURSE ROUNDING NOTE:.IN BED, WATCHING TV, NO REQUESTS, F/C PATENT. CALL LIGHT AND FLUIDS WITHING HANDS REACH
--- NOTE | 2017-08-27 22:14 | NUR ---
PATIENT RESTING QUIETLY, EYES CLOSED, RESPIRATIONS EVEN AND REGULAR. CALL LIGHT IN REACH.
--- NOTE | 2017-08-27 23:24 | NUR ---
PATIENT RESTING QUIETLY SUPINE IN BED. RESPIRATIONS REGULAR AND EVEN. EYES CLOSED. CALL LIGHT IN REACH.
--- NOTE | 2017-08-28 01:17 | NUR ---
PATIENT STILL RESTING QUIETLY, EYES CLOSED, AND RESPIRATIONS EVEN AND REGULAR. CALL LIGHT IN REACH.
--- NOTE | 2017-08-28 02:29 | NUR ---
PATIENT RESTING QUIETLY ON HIS RT SIDE, EYES CLOSED, RESPIRATIONS REGULAR AND EVEN, CALL LIGHT IN REACH.
--- NOTE | 2017-08-28 05:35 | NUR ---
PATIENT STILL RESTING QUIETLY SUPINE, RESPIRATIONS REGULAR AND EVEN, EYES CLOSED, CALL LIGHT IN REACH.
--- NOTE | 2017-08-28 06:28 | NUR ---
PATIENT I+O DONE. PATIENT'S WATER GLASS FILLED WITH NEW WATER, PATIENT DID NOT DRINK ANY FLUIDS THROUGH THE NIGHT, BUT HAS HAD GOOD URINE OUTPUT PER DIEGO. PATIENT NOT HAVING ANY C/O PAIN THIS AM AND SAYS HE WANTS TO TRY AND SLEEP UNTIL BREAKFAST ARRIVES. PATIENT'S NIGHT WAS UNEVENTFUL.
--- NOTE | 2017-08-28 08:00 | NUR ---
RECEIVED REPORT AT 0700, FOUND PT IN BED RESTING. PT HAD NO NEEDS AT THAT TIME.
--- NOTE | 2017-08-28 08:00 | NUR ---
RECEIVED REPORT AT 0700, FOUND PT IN CHAIR RESTING. PT WAS HAD NO NEEDS AT THAT TIME.
--- NOTE | 2017-08-28 10:00 | NUR ---
ALL LOBES ARE CLEAR, PT IS STILL UP IN CHAIR EATING BREAKFAST. PT IS ORIENTED TO AND SELF. ARM STRENGTH IS +5, LEG STRENGT +4. BILATERAL LEG EDEMA +1. PT IS ABLE TO SWALLOW PILLS WITH APPLESAUCE SO FAR.
--- NOTE | 2017-08-28 10:00 | NUR ---
V/S ARE WDL SO FAR, ALL LOBES ARE CLEAR. SCROTAL EDEMA IS ABOUT +2 AND PAINFUL. DIEGO INTACT, BILETERAL LEG EDEMA +1. NO NEW CONCERNS AT THIS TIME.
--- NOTE | 2017-08-28 12:00 | NUR ---
PT DID WELL WITH PT. PT HAS NO NEEDS AT THIS TIME.
--- NOTE | 2017-08-28 12:39 | NUR ---
AROUND 0930 THIS MORNING THE OCCUPATIONAL THERAPY AND I HELPED HIM WALK INTO THE BATHROOM. SHOWER AND STOOD BY IN CASE HE NEEDED ANY HELP. HE WASHED HIS HAIR AND HIS BODY ALL BY HIMSELF.
--- NOTE | 2017-08-28 14:00 | NUR ---
PT IS RESTING IN BED.
--- NOTE | 2017-08-28 14:17 | NUR ---
PT SITTING ON SIDE OF BED, LEGS DANGLING. PT STATED THAT HE ENJOYED HIS LUNCH- SOUNDS LIKE HE IS GETTING MORE AND THAT SEEMS TO BE HELPING HIS ATTITUDE. PT STATED THAT HE HAS HAD TROUBLE WITH HIS RIGHT LEG THAT WAS BROKEN MANY YEARS AGO, STAFF HAVE TALKED ABOUT POSSIBLE BRACE. THIS SEEMED TO BE VERY IMPORTANT TO HIM. ENCOURAGED PT TO KEEP HIS GOWN ON-STATED HE UNDERSTOOD. EXTENDED A BLESSING, WILL FOLLOW NEEDED
--- NOTE | 2017-08-28 16:00 | NUR ---
PATIENT SITTING ON EDGE OF BED USING ELECTRIC RAZOR ON MUSTACHE. CALL LIGHT IN REACH
--- NOTE | 2017-08-28 16:00 | NUR ---
PT AT THIS TIME IS SITTING UP AT SIDE OF BED AND IS SHAVING HIMSELF.
--- NOTE | 2017-08-28 16:10 | NUR ---
AROUND 1430 BROUGHT HIM A CUP OF COFFEE. SO I HELPED HIM SIT ON THE SIDE OF HIS BED TO DRINK IT NOW.
--- NOTE | 2017-08-28 17:28 | NUR ---
PT OVERALL HAD AN UNEVENTFUL DAY. PT WORKED WITH PHYSICAL THERAPY AND WAS ABLE TO DO MOST THINGS FOR HIMSELF. STILL WAITING ON KNEE BRACE. NO NEW CONCERNS FOR THIS PT THIS SHIFT.
--- NOTE | 2017-08-28 20:24 | NUR ---
PATIENT SITTING ON THE SIDE OF THE BED DOING WORD SEARCH PUZZLES. NO COMPLAINTS AT THIS TIME. PATIENT'S LUNG SOUNDS CLEAR DEMINISHED IN THE BASES AND ACTIVE BOWEL TONES. CALL LIGHT IN REACH.
--- NOTE | 2017-08-28 22:30 | NUR ---
PATIENT RESTING IN BED WATCHING TV AT THIS TIME. PATIENT DENIES NEED FOR ANYTHING OTHER THAN GETTING AND SANDWICH BOX WHICH HE REQUESTED BECAUSE HE WAS HUNGRY. CALL LIGHT IN REACH.
--- NOTE | 2017-08-29 00:53 | NUR ---
PATIENT RESTING QUIETLY ON HIS RIGHT SIDE, EYES CLOSED, RESPIRATIONS EVEN AND REGULAR. CALL LIGHT IN REACH.
--- NOTE | 2017-08-29 04:06 | NUR ---
PATIENT CONTINUES RESTING QUIETLY ON HIS RIGHT SIDE, EYES CLOSED, RESPIRATIONS ARE EVEN AND REGULAR. CALL LIGHT IN REACH.
--- NOTE | 2017-08-29 06:25 | NUR ---
I&OS DONE AND CHARTED. FRESH ICE WATER GIVEN. BEDSIDE TABLE AND CALL LIGHT WITHIN REACH. PT NEEDS NOTHING ELSE AT THIS TIME.
--- NOTE | 2017-08-29 06:48 | NUR ---
PATIENT HAS SLEPT WELL THROUGH THE SHIFT. LUNG SOUNDS CLEAR, BUT DEMINISHED DUE TO PATIENT'S SIZE. PATIENT'S SCROTUM STILL RED, BUT NOT INFLAMMED A COUPLE DAYS AGO. PATIENT IS EATING WELL AND TAKING PO FLUIDS WELL. CATHETER IS DRAINING CLEAR YELLOW URINE AND IV FLUSHES WELL. PATIENT'S CALL LIGHT IS IN REACH AND PATIENT HAS VOICED NO CONCERNS THROUGH THE NIGHT.
--- NOTE | 2017-08-29 08:00 | NUR ---
PT UP TO BEDSIDE, CONVERSING WITH STAFF. NO DISTRESS. EATING BREAKFAST. WILL RESECURE DIEGO TO LEG PREVIOUS HAS REMOVED. WILL CONTINUE TO MONITOR.
--- NOTE | 2017-08-29 09:36 | NUR ---
pt is sitting up on side of bed working on a word search. pt did say he would shower but wants to wait til later, will check again later. pt did not need anything else at the moment, call light in reach.
--- NOTE | 2017-08-29 12:21 | NUR ---
PT EATING LUNCH AT BEDSIDE. NO CHANGES IN CONDITION, WILL CONTINUE TO MONITOR.
--- NOTE | 2017-08-29 13:40 | NUR ---
pt is sitting up in chair with call light and talking with Dr. Baum. pt asked for some ice cream
--- NOTE | 2017-08-29 15:31 | NUR ---
pt walked from the chair to the bathroom, showered and dressed with minimal assisntance. pt then walked back to chair and is now sitting up in chair safley with call light in reach. linenes were changed and pt asked for more ice water. Nurse Amy asked me to apply a cathetar fastner to pt's leg to secure his varner tube.
--- NOTE | 2017-08-29 18:39 | NUR ---
PT HAD A GOOD DAY TODAY. PT ABLE TO AMBULATE WITH PT WITH ASSIST AND WAS GIVEN BRACE PER ORDERS. PT WAS SHOWERED AND WAS UP TO CHAIR FOR PART OF THE SHIFT. PT HAD NO DISTRESS AND WAS STABLE THROUGHOUT SHIFT. SCROTAL EDEMA PRESENT.
--- NOTE | 2017-08-29 20:00 | NUR ---
RECEIVED REPORT AT 1900,FOUND PT SITTING ON SIDE OF BED. PT HAD NO NEEDS OR CONCERNS AT THIS TIME.
--- NOTE | 2017-08-29 21:28 | NUR ---
DIEGO EMPTIED AND CHARTED. PT SLEEPING. BEDSIDE TABLE AND CALL LIGHT IN REACH.
--- NOTE | 2017-08-29 22:00 | NUR ---
ALL LOBES ARE CLEAR, EDEMA IN SCROTUM IS LESS AND REDNESS HAS SUBSIDED WELL SINCE YESTERDAY. NO DRAINAGE WAS SEEN ON MEATUS. BILATERAL LEG EDEMA IS MINIMAL AT THIS TIME. NO NEW CONCERNS AT THIS TIME. PT IS IN BED.
--- NOTE | 2017-08-30 | NUR ---
PT IS SLEEPING AT THIS TIME.
--- NOTE | 2017-08-30 02:01 | NUR ---
PT AT THIS TIME IS SLEEPING IN BED. NO NEW CONCERNS AT THIS TIME.
--- NOTE | 2017-08-30 04:00 | NUR ---
PT IS STILL SLEEPING AT THIS TIME.
--- NOTE | 2017-08-30 05:13 | NUR ---
PT OVERALL HAD AN UNEVENTFUL NIGHT. NO PURULENT DISCHARGE WAS NOTED FROM MEATUS. LOBES ARE CLEAR, SCROTAL EDEMA HAS LESSEND SOME. PT SLEPT MOST OF THIS SHIFT. V/S WERE WDL, NO NEW CONCERNS AT THIS TIME.
--- NOTE | 2017-08-30 06:18 | NUR ---
I&OS DONE AND CHARTED. BEDSIDE TABLE AND CALL LIGHT WITHIN REACH. FRESH ICE WATER GIVEN. PT NEEDS NOTHING AT THIS TIME.
--- NOTE | 2017-08-30 08:30 | NUR ---
PT RESTING IN BED, NO DISTRESS. PT DENIES PAIN/SOB/NAUSEA. PT HAS SCROTAL SWELLING WITH SOME REDNESS, SMALL AMOUNT OF DRAINAGE NOTED TO PENIS THIS AM. PT HAS BEEN COMPLIANT WITH CARE. WILL CONTINUE TO MONITOR.
--- NOTE | 2017-08-30 09:45 | NUR ---
Upon entering the room pt was resting safely in bed with eyes closed, resperations even. pt awoke for vitals and stated he did not need anything at the moment, call light in reach
--- NOTE | 2017-08-30 14:02 | NUR ---
pt is resting in bed with call light in reach. pt was offered shower and he stated he was too tired to do one today.
--- NOTE | 2017-08-30 17:43 | NUR ---
pt is sitting up on side of bed eating his dinner pt did not need anything at the moment
--- NOTE | 2017-08-30 18:11 | NUR ---
PT HAD A GOOD DAY TODAY, PT REFUSED SHOWER, COMPLIANT IN OTHER CARE. PT IS WALKING WITH STANDBY ASSIST. PT HAS TAKEN OFF SECUREMENT DEVICE FOR DIEGO PER HIS PREFERENCE.
--- NOTE | 2017-08-30 20:00 | NUR ---
RECEIVED REPORT AT 1900, FOUND PT IN BED SLEEPING.
--- NOTE | 2017-08-30 22:00 | NUR ---
V/S ARE WDL. ALL LOBES ARE CLEAR BUT DIMINISHED. EDEMA IN BOTH LOWER LEGS IS MINIMAL. WOUND CARE WITH IODINE WAS DONE. PT HAD SOME BLOODY SEDIMENT IN URINE FORM CATH BEING PULLED AT SOME POINT TODAY. PT HAD NO NEEDS OR CONCERNS AT THAT TIME.
--- NOTE | 2017-08-30 22:35 | NUR ---
I&OS DONE AND CHARTED. BEDSIDE TABLE AND CALL LIGHT WITHIN REACH. PT NEEDS NOTHING AT THIS TIME.
--- NOTE | 2017-08-31 | NUR ---
PT IS SLEEPING AT THIS TIME.
--- NOTE | 2017-08-31 02:00 | NUR ---
PT IS SLEEPING AT THIS TIME. NO MORE BLOODY SEDIMENT NOTED IN DIEGO BAG AND TUBING AT THIS TIME.
--- NOTE | 2017-08-31 04:00 | NUR ---
PT AT THIS TIME IS STILL SLEEPING. URINE LOOKS BETTER AND HAS NO BLOODY SEDIMENT PRESENT.
--- NOTE | 2017-08-31 06:23 | NUR ---
PT OVERALL HAD AN UNEVENTFUL NIGHT. WOUND CARE WAS DONE AT START OF SHIFT. I NOTED AT THAT TIME SOME BLOODY SEDIMENT IN THE CATHETER. PT STATED THAT DIEGO GOT PULLED AROUND EARLIER IN THE DAY. PT SLEPT ALL NIGHT. ALL LOBES WERE CLEAR, V/S WERE WDL. LATER IN THE SHIFT I NOTED NO MORE BLOODY SEDIMENT PRESENT IN CATH. KNEE BRACE DOES NOT FIT PATIENT.
--- NOTE | 2017-08-31 06:24 | NUR ---
I&OS DONE AND CHARTED. GARBAGES EMPTIED. CLEANED UP ROOM. PT NEEDS NOTHING ELSE AT THIS TIME. BEDSIDE TABLE AND CALL LIGHT WITHIN REACH.
--- NOTE | 2017-08-31 09:36 | NUR ---
PT IN BED SLEEPING, AWOKE EASILY TO VOICE. PT DENIES PAIN OR OTHER CONCERNS AT THIS TIME. ALERT AND ORIENTED. ASSESSMENT COMPLETED AND AM MEDS ADMINISTERED. PT DENIES NEEDS OR CONCERNS. CALL LIGHT WITHIN REACH.
--- NOTE | 2017-08-31 12:10 | NUR ---
PT UP TO SHOWER WITH MIMINAL ASSIST.
--- NOTE | 2017-08-31 13:33 | NUR ---
ASSISTED PHYSICAL THERAPY WITH WALKING PT. PT BACK IN CHAIR AND COMFORTABLE.
--- NOTE | 2017-08-31 15:20 | NUR ---
PT UP TO RECLINER WATCHING TV. DENIES NEEDS OR CONCERNS AT THIS TIME. CALL LIGHT WITHIN REACH.
--- NOTE | 2017-08-31 17:34 | NUR ---
PT SAT UP AT EDGE OF BED TO EAT DINNER INDEPENDENTLY. DENIES NEEDS OR CONCERNS AT THIS TIME. CALL LIGHT WITHIN REACH.
--- NOTE | 2017-08-31 19:10 | NUR ---
RECEIVED REPORT FROM DAY RN. PT WATCHING TV.
--- NOTE | 2017-08-31 22:00 | NUR ---
PT WOKE FOR HIS MEDS AND ASSESSMENT. COMPLAINING OF BEING "PUSHED TO DO THINGS" "COMPLAINING ABOUT THE PT LONI "MAKING ME DO THINGS, AND I WILL DO THEM IN MY OWN TIME". TRIED TO ENCOURAGE PT AND EXPLAIN THAT THE PROGRAM HE IS ON IS TO HELP HIM GET ON HIS FEET MORE. HE CONTINUED TO COMPLAIN. MEDS GIVEN, FRESH WATER GIVEN, "SMALL AMOUNT PER PT". ENCOURAGED PT TO SCOOT UP IN BED SO HIS FEET WERE NOT HANGING OVER THE END OF THE BED, ON THE FOOT BOARD, BUT HE SAID WHY, I LIKE MY FEET ON THE FOOT BOARD, I AM JUST GOING TO PUT THEM RIGHT BACK ON THERE. LEFT PT WITH HIS CALL LIGHT AND NO OTHER NEEDS.
--- NOTE | 2017-09-01 02:21 | NUR ---
PT WITH EYES CLOSED, RESP EVEN UNLABORED.
--- NOTE | 2017-09-01 04:00 | NUR ---
PT WITH EYES CLOSED, RESP EVEN AND UNLABORED.
--- NOTE | 2017-09-01 05:47 | NUR ---
PT SLEPT MOST SHIFT. DID NOT USE HIS CALL LIGHT. SATS ABOVE 90'S ON JOHNATHON DAVEY ADEQUATE OUTPUT. SL FLUSHES WELL. PO ANTIBIOTIC GIVEN. CONTINUES ON SWING BED STATUS
--- NOTE | 2017-09-01 09:14 | NUR ---
MORNING ASSESSMENT AND MEDICATIONS DUE. THIS RN TO ROOM. PT UP TO CHAIR. PT REPORTS 6/10 PAIN THAT "IS MUCH BETTER THAN BEFORE." ASSESMENT DONE. WOUND CARE DONE PER MD ORDER. MEDICATIONS GIVEN. NYSTATIN APPLIED. NEW PIV STARTED PER PROTOCOL R/T PAIN AT IV SITE AND LENGTH PIV WAS IN. PIV SALINE LOCKED AT THIS TIME. PT STATES HE HAS NO ADDITIONAL REQUESTS OR COMPLAINTS AT THIS TIME. CALL LIGTH WITHIN REACH.
--- NOTE | 2017-09-01 11:00 | NUR ---
PATIENT STATES THAT HE HAS BRUSHED HIS TEETH AND WASHED HIS HANDS AND FACE THIS AM.
--- NOTE | 2017-09-01 11:23 | NUR ---
LUNCH ARRIVED. THIS RN BROGHT LUNCH TO PT. PT TALKING ON PHONE. NO REQUESTS OR COMPLAINTS AT THIS TIME. CALL LIGHT WITHIN REACH.
--- NOTE | 2017-09-01 14:01 | NUR ---
PT IN [place] WITH [facility] SITTING IN W.CHAIR AFTER WALKING SOME. I ENCOURAGED HIM TO KEEP TRYING SO HE CAN IMPROVE. PT TELLING [facility] [employer] STORIES, TRIED TO GET HIM TO FOCUS ON HIS REHAB. WILL CONTINUE TO FOLLOW.
--- NOTE | 2017-09-01 14:34 | NUR ---
THIS RN TO ROOM TO CHECK ON PT. PT UNDRESSED AND SITTING ON THE EDGE OF BED. PT REFUSES TO GET BACK INTO BED OR TO CHAIR. PT REFUSES GOWN. PT STATES HE IS PLANNING TO "STAY HERE FOR 2 WEEKS BECAUSE THAT'S WHAT I WANT TO DO, NO LESS AND NO MORE. i WON'T GO LEAVE IF IT HURTS AT ALL BECAUSE I'LL JUST COME RIGHT BACK." PT CONDITION AND TREATMENT DISCUSSED WITH PT. PT DEMONSTARTES MINIMAL UNDERSTANDING. WATER REFILLED. BED RAILS UP. CALL LIGHT WITHIN REACH.
--- NOTE | 2017-09-01 16:56 | NUR ---
THIS RN TO ROOM TO CHECK ON PT. PT WATCHING TV LYING IN BED. PT STATES HE HAS NO REQUESTS OR COMPLAINTS AT THIS TIME. BED RAILS UP. CALL LIGHT WITHIN REACH. WATER REFILLED.
--- NOTE | 2017-09-01 18:28 | NUR ---
PT SWING BED FOR SCROTAL CELLULITIS. SBA, FWW. ADA DIET, NO CBG CHECKS. DIEGO CATHETER. DAILY WOUND CARE. PHYSICAL THERAPY INVOLVED. NEW PIV IN LEFT HAND. PO LASIX, NYSTATIN FOR PANNUS. PT USING CALL LIGHT APPROPRIATLY.
--- NOTE | 2017-09-01 20:16 | NUR ---
BEDSIDE REPORT RECEIVED FROM [facility]. PT APPEARS TO BE SLEEPING, EYES CLOSED, BREATHING NON-LABORED. IV SALINE LOCKED. CALL LIGHT IN REACH.
--- NOTE | 2017-09-01 21:45 | NUR ---
PT ASSESSMENT COMPLETE. PT DENIES ANY PAIN AT THIS TIME. IV FLUSHED WNL, SALINE LOCKED. PT EDUCATION PROVIDED REGARDING SCHEDULED MEDICATIONS, PT ASKING QUESTIONS. DIEGO DRAINING WNL. LOTION APPLIED BILATERALLY TO LEGS, 1+ EDEMA PRESENT BILATERALLY. PT ASSISTED TO REPOSITION IN BED.
--- NOTE | 2017-09-02 02:50 | NUR ---
CHECKED ON PT, LYING ON RIGHT SIDE, BREATHING NON-LABORED, LIGHTS OFF IN ROOM.
--- NOTE | 2017-09-02 05:43 | NUR ---
SWING BED, SBA WITH FWW, BRACE FOR RIGHT KNEE WITH AMULATION. ADA DIET. DIEGO CATHETER WITH DAILY IODINE CARE FOR DIEGO AND SCROTUM. PT AND OT CONSULTS. IV SALINE LOCKED. PT SLEEPING WELL THROUGHOUT SHIFT, NO C/O PAIN.
--- NOTE | 2017-09-02 06:33 | NUR ---
PT AWAKE ON PHONE, LYING IN BED. BREAKFAST ORDER TAKEN FROM PT. JOHNATHON TOPETE. NO REQUESTS AT THIS TIME. CALL LIGHT IN REACH.
--- NOTE | 2017-09-02 09:00 | NUR ---
PT RESTING AT BEDSIDE, IV NOT FLUSHING WELL, REDRESSED BY CHARGE NURSE, IV ANTIBIOTIC GIVEN. PT SHOWERED AND IODINE TO SCROTOM BY CHARGE NURSE PER ORDERS. NO DISTRESS. DIEGO IN PLACE. PT IS CONCERNED HE WILL NOT BE SAFE ON THE STREET AT DISCHARGE AND HAS EXPRESSED THAT HE WILL RETURN TO THE ER IF HE IS DISCHARGED ON THURSDAY. WILL CONTINUE TO MONITOR.
--- NOTE | 2017-09-02 11:30 | NUR ---
ATTEMPTED TO CONTACT [employer]ENT EDILMA RAND [phone]. NO ANSWER. VOICEMAIL LEFT FOR CALL BACK.
--- NOTE | 2017-09-02 12:05 | NUR ---
PT UP WITH PT AND AMBULATING WITH WALKER AND ASSIST. NO CHANGES IN CONDITION WILL CONTINUE TO MONITOR.
--- NOTE | 2017-09-02 12:46 | NUR ---
PT HAS A TENDENCY TO SENSATIONALIZE MOST EVERYTHING. P.T. HAS HIM UP, TRYING TO WALK. TRIES TO MAKE EVERYTHING A PRODUCTION, BUT THROUGH IT, WE WORK HARD TO GET HIM TO HELP HIMSELF. HE WAS SITTING TOO LONG, THEN CHALLENGED HIM TO GET UP, HERNESTO THERE TO TIME HIM TO COMPARE HIS PROGRESS. EXTENDED A BLESSING TO PT, WILL FOLLOW NEEDED
--- NOTE | 2017-09-02 14:10 | NUR ---
SPOKE WITH PATIENT IN ROOM. DISCUSSED WITH PATIENT THAT I AM ATTEMPTING TO CONTACT [facility] TO SEE IF THEY CAN HELP WITH ANY HOUSING. PATIENT STATES "WELL THEY'RE GONNA TELL YOU NO". I EXPLAINED IT DOESN'T HURT TO ASK, HE AGREED. ASKED WHAT HE WANTS TO DO AT DISCHARGE. HE STATES "I THINK I'LL STAY HERE" AND LAUGHED. EXPLAINED THAT WHEN HE NO LONGER HAS A MEDICAL REASON TO STAY, THE DOCTOR WILL HAVE TO DISCHARGE HIM. WE DISCUSSED THAT HIS PAST AND BEHAVIORS HAVE BEEN A BARRIER TO FINDING PLACEMENT. ASKED IF [facility]OULD CALL [facility] AND TALK WITH THEM REGARDING ANY OPTIONS. HE STATED HE HAD THE NUMBER AND WOULD CALL. I DISCUSSED THERE ARE NO SHELTERS IN [place], BUT THERE IS ONE IN [place]. HE STATED HE DOESN'T KNOW IF HE WANTS TO LEAVE [place]. DISCUSSED WITH HIM THAT I CAN GIVE HIM THE CONTACT INFORMATION FOR [facility]. HE DOESN'T KNOW IF HE WANTS TO CALL THEM. I TOLD HIM TO THINK ABOUT IT AND TOMORROW I WILL BRING HIM SOME NUMBERS. HE CAN CALL IF HE CHOOSES. I EXPLAINED THAT AT DISCHARGE WE WILL GIVE HIM A CARE RIDE TO WHERE HE WANTS TO GO. I ENCOURAGED HIM TO FOLLOW UP WITH [facility] THEY WILL HELP ANYONE WHO IS HOMELESS. DISCUSSED WITH HIM THAT PERHAPS NOW THAT HE HAS THE MEDICAL ISSUES AND IS GETTING OLDER, HE MIGHT BE MORE WILLING TO TRY AND ACCEPT HELP IN FINDING HOUSING. HE STATED HE WOULD "THINK ABOUT IT". HE THEN STATED, WELL, IF YOU "KICK ME OUT" I WILL JUST GO BACK TO THE ED AND CHECK IN. I EXPLAINED THAT ANYONE CAN CHECK INTO THE ED, BUT THAT DOESN'T MEAN HE WOULD BE ADMITTED UNLESS HE HAD A MEDICAL REASON MET. PATIENT WAS NOT AGGRESSIVE OR ARGUMENTATIVE, JUST VERY MATTER OF FACT. I AGAIN SAID THAT CASE MANAGEMENT WOULD CONTINUE TO WORK WITH HIM. PATIENT REFUSED OFFER OF DAILY NEWSPAPER.
--- NOTE | 2017-09-02 16:17 | NUR ---
PATIENT SITTING UP ON EDGE OF BED, CALL LIGHT IN REACH. NO OTHER NEEDS AT THIS TIME.
--- NOTE | 2017-09-02 16:58 | NUR ---
PT SITTING UP AT THE EDGE OF BED, DISCUSSING HIS CONCERNS FOR DISCHARGE. HE REPEATEDLY STATES THAT HE WILL FEEL UNSAFE SLEEPING OUTSIDE WITH HIS CURRENT CONDITION. NO CHANGE IN CONDITION.
--- NOTE | 2017-09-02 18:35 | NUR ---
PT HAS BEEN ANXIOUS TODAY, ANTICIPATING DISCHARGE. PT BELIEVES THAT HE WILL NOT BE ABLE TO CARE FOR HIMSELF ONCE HE IS DISCHARGED ON THURSDAY. PT WANTS TO DISCUSS THIS AT EVERY STAFF INTERVENTION. PT IS STABLE, SHOWERED, AND WORKED WITH PT TODAY. IODINE APPLIED TO GROIN, PT TOLERATED WELL. PT STATES THAT HE IS STILL HAVING PAIN TO GROIN AND REFUSES TO ANCHOR DIEGO WITH ATTACHMENT.
--- NOTE | 2017-09-02 18:55 | NUR ---
REPORT RECEIVED FROM DAYSCAFT RN. PT RESTING SUPINE IN BED, RESPIRATIONS EVEN AND UNLABORED. PT STATES HE IS COMFORTABLE AND DENIES NEEDS AT THIS TIME. CALL LIGHT IN REACH.
--- NOTE | 2017-09-02 19:00 | NUR ---
ROUNDED CHARGE. PATIENT IS RESTING IN BED. NO COMMENTS, QUESTIONS, OR CONCERNS, AT THIS TIME. CALL LIGHT IN REACH.
--- NOTE | 2017-09-02 20:24 | NUR ---
VITALS DONE AND CHARTED. FRESH WATER GIVEN. PT NEEDS NOTHING ELSE AT THIS TIME. BEDSIDE TABLE AND CALL LIGHT WITHIN REACH.
--- NOTE | 2017-09-02 22:08 | NUR ---
I&OS DONE AND CHARTED. BEDSIDE TABLE AND CALL LIGHT WITHIN REACH. PT NEEDS NOTHING ELSE AT THIS TIME.
--- NOTE | 2017-09-02 23:35 | NUR ---
pt resting supine in bed, respirations evena dn unlabored and call light in reach. Pt appears to be sleeping comfortably.
--- NOTE | 2017-09-03 01:42 | NUR ---
PT RESTING IN BED, RESPERATIONS EVEN AND UNLABORED. CALL LIGHT IN REACH. PT APPEARS TO BE SLEEPING COMFORTABLY.
--- NOTE | 2017-09-03 04:21 | NUR ---
pt resting on right lateral side in bed, [id number]. Call light in reach and pt appears to be sleeping comfortably.
--- NOTE | 2017-09-03 05:15 | NUR ---
pt slept through majority of night. Pt did report slight discomfort to tip of penis. Pt was encouraged to use cath lock on leg to secure catheter but pt declines. Pt agrees not to pull/tug on catheter. No exudate/drainage noted from urethra and pt has had good urine output.
--- NOTE | 2017-09-03 07:20 | NUR ---
REPORT RC'D FROM STRETCHING PRESS OPERATOR NURSE. PT SITTING AT EDGE OF BED, RESPIRATION EVEN AND UNLABORED, NO ACUTE DISTRESS NOTED.
--- NOTE | 2017-09-03 09:40 | NUR ---
PT RESTINGIN BED COMFORTABLY WATCHING TV. ALL MORNING MEDICATIONS ADMINISTERED. RESPIRATIONS EVEN AND UNLABORED, LUNGS SOUNDS CLEAR THROUGHOUT, SLIGHTLY DIMINSHED IN BASES. LEFT AXIALLA AND RIGHT INFRAMAMMARY REDDNESS RESOLVED, NYSTATIN APPLIED. SCROTAL EDEMA RESOLVED. LH IV SITE PATENT AND WNL. DISCUSSED DIEGO CATH DC, DC'D AT THIST KADE, PT TOLERATED WELL. EDUCATION ON BLADDER TRAINING DISCUSSED, URINAL WITHIN REACH, ATTENDS IN PLACE, PT VERBALIZED UNDERSTANDING AND WAS AGREEABLE TO PLAN. WILL CONTINUE TO REASSESS ELIMINATION. PT REPOSITIONED IN BED FOR COMFORT, CALL LIGHT WITHIN REACH, AND BED IN LOWEST POSITION.
--- NOTE | 2017-09-03 11:30 | NUR ---
PT TRAY PROVIDED, DENIES OTHER NEEDS AT THIS TIME, PT RESTING COMFORTABLY IN CHAIR. CALL LIGHT WITHIN REACH.
--- NOTE | 2017-09-03 13:00 | NUR ---
PT RESTING IN CHAIR WATCHING TV. ASSESSED URINE OUTPUT. PT VOIDED 320 ML INTO URINAL, DENIES DIFFICULTY, C/O MINOR BURNING. ADVISED TO CONTINUE BLADDER TRAINING AND ATTEMPT TO USE URINAL Q2H, PT VERBALIZED UNDERSDTANDING AND WAS AGREEABLE. NO OTHER QUESTIONS OR CONCERNS. URINAL EMPTIED AND WITHIN REACH. CALL LIGHT WITHIN REACH. WILL CONTINUE TO ASSESS URINE OUTPUT.
--- NOTE | 2017-09-03 14:30 | NUR ---
PATIENT APPEARED TO BE GRUMPY WHEN ENTERING ROOM. PATIENT REQUESTED TO MOVE BACK TO BED FROM RECLINER. THIS STUMP BLOWER ASSISTED PATIENT INTO BED. PATIENT CALL LIGHT IN REACH. NO OTHER NEEDS AT THIS TIME.
--- NOTE | 2017-09-03 14:37 | NUR ---
MET WITH PT DISCUSSED DC EXPLAINED AGAIN THE NEED FOR MEDICAL NECESSITY TO STAY IN THE HOSPITAL, HE STATES WELL HE IS NOT 100% WELL YET AND IT IS STILL SORE DOWN THERE. IF I NEED I WILL JUST COME RIGHT BACK TO THE EMERGENCY ROOM. DISCUESS WITH HIM THAT JUST BECAUSE HE COMES TO ER DOESN'T MEAN HE WILL BE ADMITTED. HE STATES BETTER UNDERSTANDING BUT IS NERVOUS ABOUT BEING DC.
--- NOTE | 2017-09-03 16:12 | NUR ---
PT RESTING IN BED COMFORTABLY. PT REQUESTING ASSISTANCE WITH CELL PHONE, ASSISTED WITH PHONE CALL. ASSESSED URINE OUTPUT, NONE AT THIS TIME, ASSESSED NEED TO VOID, DENIES NEED. PROVIDED ELIMINATION EDUCATION AND URINAL WITHIN REACH, WILL REASSESS. NO OTHER NEEDS AT THIS TIME.
--- NOTE | 2017-09-03 18:09 | NUR ---
PT UP TO CHAIR FOR MEALS AND AMBULATING WITH PT IN HALLWAY WITH KNEE BRACE. DIEGO CATH DC'D TODAY, BLADDER TRAINING EDUCATION PROVIDED, PT TO VOID Q2H, MONITOR FOR INCONTINENCE. DENIES URINARY RETENTION OR PAIN WHEN VOIDING. SCROTAL EDEMA AND REDNESS MUCH IMPROVED. LEFT AXILLA AND RIGHT INFRAMAMMARY REDNESS RESOLVED,NYSTATIN APPLIED. LUNG SOUNDS CLEAR THROUGHOUT AND SLIGHTLY DIM IN BASES. PT SBA WITH FWW. TOLERATING ADA DIET. CASEMANAGEMENT CONSULT COMPLETED TODAY AND POC UPDATED. PT TO DC TOMORROW, UNABLE TO FIND PLACEMENT, PT AWARE.
--- NOTE | 2017-09-03 19:05 | NUR ---
RECEIVED REPORT FROM DAY SHIFT RN. PT IN BED. REPORTS NO PAIN. CALL LIGHT IN REACH. NO NEEDS AT THIS TIME.
--- NOTE | 2017-09-03 20:17 | NUR ---
VITALS AND I&OS DONE AND CHARTED. FRESH ICE WATER GIVEN. BEDSIDE TABLE AND CALL LIGHT WITHIN REACH. PT NEEDS NOTHING ELSE AT THIS TIME.
--- NOTE | 2017-09-03 21:29 | NUR ---
ASSESSMENT COMPLETED. PT IN BED, ERPORTS NO PAIN. LUNGS CLEAR AND DIM. HEART SOUDNS DISTANT. PULES +2 PEDIS AND RADIAL. CHRONIC NEUROPATHY. BOWEL TONES ACTIVE. SCROTUM APEARS SLIGHTLY RED WITH MINIMAL EDEMA. PAINFUL TO TOUCH. DISCOLORATION NOTED UNDER LEFT AXILLARY AND RIHGT INFRAMAMMARY FOLD. PT HAS NO NEEDS AT THIS TIME.CALL LIGHT IN REACH,
--- NOTE | 2017-09-04 00:02 | NUR ---
PT APPEARS TO BE SLEEPING ON RIGHT SIDE. RESPIRATIONS ARE EQUAL. PT IS TYALKING IN HIS SLEEP. CALL LIGHT IN REACH.
--- NOTE | 2017-09-04 03:31 | NUR ---
PT APPEARS TO BE SLEEPING. URINE OUTPUT QS. URINAL AT BEDSIDE. REPSIRATIONS EQUAL AND NONLABORED. CALL LIGHT IN REACH.
--- NOTE | 2017-09-04 06:08 | NUR ---
I&os done and charted. pt sleeping when i left the room. call light in reach.
--- NOTE | 2017-09-04 06:13 | NUR ---
PT SLEPT THROUGHOUT THE NIGHT. PT VOIDING WELL THROUGHOUT THE NIGHT. SCROTUM PAINFUL TO TOUCH. TRACE EDEMA. PLAN FOR DC TODAY. KNEE BRACE WHEN AMBULATING.
--- NOTE | 2017-09-04 07:20 | NUR ---
REPORT RC'D FROM PRODUCT MANAGER NURSE. PT SITTING AT EDGE OF BED WAITING FOR BREAKFAST. NO ACUTE DISTRESS NOTED. DENIES ANY OTHER NEEDS AT THIS TIME.
--- NOTE | 2017-09-04 07:29 | NUR ---
PATIENT SITTING UP ON BEDSIDE. PATIENT STATED HE WOULD LIKE TO SHOWER TODAY BUT NOT UNTIL AFTER TALKING TO THE DOCTOR BECAUSE "IM NOT IN GOOD SHAPE, AND IM NOT GOING HOME TODAY". RN NOTIFIED. PATIENT REFUSED AM CARE. CALL LIGHT IN REACH. NO OTHER NEEDS AT THIS TIME.
[2017-09-04] MEDS ORDERED: LISINOPRIL20 MG PO (09:26)
[2017-09-04] MEDS ORDERED: NYSTOP60 GM TOP (09:27)
--- NOTE | 2017-09-04 09:48 | NUR ---
SAW PATIENT IN ROOM ACCOMPANIED BY CHARGE NURSE AND DR CONWAY. PATIENT WAS UP AT SIDE OF BED. EXAM DONE BY DR CONWAY. DR CONWAY EXPLAINED HE WILL BE DISCHARGE TODAY HAVING MET HIS GOALS. PATIENT STATES HE NEEDS TO GO "GET MY MONEY" AND WANTS A RIDE TO [place]. I DISCUSSED WITH HIM THAT WE CAN GIVE HIM A CARERIDE. HE ASKS FOR ME TO CALL [employer] TO SEE IF HIS CHECK IS IN. I CALLED LOCAL [employer] OFFICE ([phone]). THEY STATE HIS FRIEND ARPIT PICKED UP HIS CHECK. UPDATED PATIENT ON THIS. HE THEN ASKED ME TO CALL HIS FRIEND ARPIT AT [phone] TO CHECK IF SHE HAD THE CHECK AND SEE IF SHE CAN MEET HIM AT DISCHARGE. I CALLED [employer], SHE STATED SHE DID HAVE THE CHECK AND SHE WOULD MEET HIM WHEN HE TOOK HIS CARERIDE AT DISCHARGE. SHE STATED SHE COULD DO THIS AT 1300. UPDATED PATIENT AND STAFF. DISCUSSED WITH PATIENT HIS HOMELESSNESS. HE STATES HE HAS TURNED IN PAPERWORK TO CHANGE RESIDENCE TO [place]OL [place]IDGE WITH HIS OPEN DEVELOPER OPERATOR. I TOLD HIM I TRIED CONTACTING THE PO, BUT DID NOT REACH THEM. I WILL TRY AGAIN TODAY. HE STATES "THEY NEVER ANSWER OR CALL BACK". HE STATES HE IS GOING TO BUY A TRAILER "FROM A PAULY I KNOW" PROBABLY TODAY IF HE CAN CARMICHAEL HIS CHECK AND MOVE INTO IT. I DID GIVE HIM THE CONTACT INFORMATION FOR [facility] AND TOLD HIM HE CAN GO TO THE OFFICE OR CALL THEM AND THEY HELP PEOPLE WITH HOUSING NEEDS. PATIENT ASKED ME TO CALL NETTE WALKER FROM PCP OFFICE AND TELL HER HE WANTED TO SPEAK WITH HER IF POSSIBLE. I DID CALL AND LEAVE A MESSAGE FOR HER.
--- NOTE | 2017-09-04 09:50 | NUR ---
PT SITTING AT EDGE OF BED. A&O X3 AND RESPONDING APPROPRIATELY. RESPIRATIONS EVEN AND UNLABORED, LUNG SOUNDS CLEAR THROUGH AND SLIGHTLY DIM IN BASES. SKIN INTACT, NYSTATIN APPLIED TO LEFT AXILLA AND RIGHT INFRAMAMMARY. DENIES PAIN OR NEAUSE. EDEMA IN BLE RESOLVED. SCROTAL EDEMA RESOLVED. VOIDING INTO URINAL, DENIES RETENTION OR INCONTINENCE. PT VERBALIZED CONCERNS OF DC PLAN, REINFORCED DC PLAN AND COMMUNITY RESOURCES. PT REQUESTING SHOWER AND LUNCH PRIOR TO DC, ADVISED BOTH WILL BE PROVIDED. NO OTHER CONCERNS OR REQUESTS AT THIS TIME.
[2017-09-04] MEDS ORDERED: DOXYCYCLINE HY100 MG PO (10:03)
--- NOTE | 2017-09-04 10:48 | NUR ---
ATTEMPTED TO CONTACT BUS OR TRUCK GARAGE MECHANIC AGAIN EDILMA RAND AT [phone]. NO ANSWER, LEFT A MESSAGE THAT PATIENT IS BEING DISCHARGED TODAY AT 1PM.
--- NOTE | 2017-09-04 11:09 | NUR ---
OCCUPATIONAL THERAPIST ASSISTED PATIENT WITH SHOWER AND DRESSING.
--- NOTE | 2017-09-04 11:17 | NUR ---
OCCUPATIONAL THERAPY IN ROOM WORKING WITH PATIENT. PATIENT CONTINUALLY MAKES COMMENTS ABOUT "BEATING UP" STAFF. PATIENT BACK IN BEDSIDE RECLINER. CALL LIGHT IN REACH. NO OTHER NEEDS AT THIS TIME.
== END 2017-09-04 12:55 | disposition home or self-care (01) | DRG 728 ==
LOC: MS 17:00
PROVIDERS: ADMIT Internal Medicine
DX: N49.2 Inflammatory disorders of scrotum (principal); Z68.43 Body mass index [BMI] 50.0-59.9, adult; I13.0 Hypertensive heart and chronic kidney disease with heart failure and stage 1 through stage 4 chronic kidney disease, or unspecified chronic kidney disease; N18.4 Chronic kidney disease, stage 4 (severe); E66.01 Morbid (severe) obesity due to excess calories; R32 Unspecified urinary incontinence; B37.2 Candidiasis of skin and nail; B35.4 Tinea corporis; I25.2 Old myocardial infarction; G89.29 Other chronic pain; I25.10 Atherosclerotic heart disease of native coronary artery without angina pectoris; E11.22 Type 2 diabetes mellitus with diabetic chronic kidney disease; I50.9 Heart failure, unspecified; M25.569 Pain in unspecified knee; Z88.0 Allergy status to penicillin; Z88.8 Allergy status to other drugs, medicaments and biological substances; Z86.73 Personal history of transient ischemic attack (TIA), and cerebral infarction without residual deficits; Z59.0 Homelessness; Z99.3 Dependence on wheelchair; Z79.82 Long term (current) use of aspirin; Z79.899 Other long term (current) drug therapy
CPT/HCPCS: 97110; 97116; 97166; 97530; 97535; J0696; J1650

== ENCOUNTER 2017-09-09 02:09 | Emergency (ER) | payer MEDICARE, OTHER ==
[~2017-09-09] VITALS: Ht 175.3 cm; Wt 167.9 kg
[~2017-09-09 02:09] MED LIST changes: +DOXYCYCLINE HY100 MG PO; +NYSTOP60 GM TOP
== END 2017-09-09 02:37 | disposition home or self-care (01) ==
LOC: ED 02:09
DX: Z59.0 Homelessness (principal); I11.0 Hypertensive heart disease with heart failure; I50.9 Heart failure, unspecified; E11.9 Type 2 diabetes mellitus without complications; Z86.73 Personal history of transient ischemic attack (TIA), and cerebral infarction without residual deficits; Z88.0 Allergy status to penicillin; Z88.5 Allergy status to narcotic agent; Z88.8 Allergy status to other drugs, medicaments and biological substances; Z79.899 Other long term (current) drug therapy; Z79.2 Long term (current) use of antibiotics
CPT/HCPCS: 99282

== ENCOUNTER 2017-10-04 08:16 | Emergency (ER) | payer MEDICARE, OTHER ==
[~2017-10-04] VITALS: Ht 175.3 cm; Wt 172.4 kg
== END 2017-10-04 10:20 | disposition home or self-care (01) ==
LOC: ED 08:16
DX: S01.81XA Laceration without foreign body of other part of head, initial encounter (principal); I11.0 Hypertensive heart disease with heart failure; I50.9 Heart failure, unspecified; E11.9 Type 2 diabetes mellitus without complications; Z87.891 Personal history of nicotine dependence; Z88.0 Allergy status to penicillin; Z88.5 Allergy status to narcotic agent; Z88.8 Allergy status to other drugs, medicaments and biological substances; Z79.899 Other long term (current) drug therapy; W19.XXXA Unspecified fall, initial encounter
CPT/HCPCS: 99284

== ENCOUNTER 2017-10-06 12:06 | Emergency (ER) | payer MEDICARE, OTHER ==
[~2017-10-06] VITALS: Ht 175.3 cm; Wt 172.4 kg
== END 2017-10-06 13:50 | disposition home or self-care (01) ==
LOC: ED 12:06
DX: S84.92XA Injury of unspecified nerve at lower leg level, left leg, initial encounter (principal); S84.91XA Injury of unspecified nerve at lower leg level, right leg, initial encounter; E66.9 Obesity, unspecified; R53.1 Weakness; E11.9 Type 2 diabetes mellitus without complications; W18.30XA Fall on same level, unspecified, initial encounter; I11.0 Hypertensive heart disease with heart failure; I50.9 Heart failure, unspecified; Z87.891 Personal history of nicotine dependence; Z88.0 Allergy status to penicillin; Z88.5 Allergy status to narcotic agent; Z88.8 Allergy status to other drugs, medicaments and biological substances; Z79.899 Other long term (current) drug therapy
CPT/HCPCS: 99283

== ENCOUNTER 2017-10-09 15:45 | Emergency (ER) | payer MEDICARE, OTHER ==
[~2017-10-09] VITALS: Ht 175.3 cm; Wt 172.4 kg
[2017-10-09] MEDS ORDERED: ULTRAM50 MG PO (17:18)
== END 2017-10-09 17:38 | disposition home or self-care (01) ==
LOC: ED 15:45
DX: S70.01XA Contusion of right hip, initial encounter (principal); I11.0 Hypertensive heart disease with heart failure; I50.9 Heart failure, unspecified; E11.9 Type 2 diabetes mellitus without complications; Z88.0 Allergy status to penicillin; Z88.5 Allergy status to narcotic agent; Z88.8 Allergy status to other drugs, medicaments and biological substances; Z79.899 Other long term (current) drug therapy; W18.30XA Fall on same level, unspecified, initial encounter
CPT/HCPCS: 73502; 99283

== ENCOUNTER 2018-03-25 09:44 | Emergency (ER) | payer MEDICARE, OTHER ==
[~2018-03-25] VITALS: Ht 175.3 cm; Wt 172.4 kg
[~2018-03-25 09:44] MED LIST changes: +ULTRAM50 MG PO
--- OUTSIDE RECORDS SUMMARY | 2018-03-25 09:46 | XMS ---
PreManage Notification: SERGIO ROA Security Bonding Molder Events No recent Security Events currently on file CRITERIA MET - Group Notification - [facility] - Has Care Guidelines CARE PROVIDERS PRANAV WIGGINS [facility] 09/09/2017-Current PHONE: Unknown Bob Serna Primary Care Current MD PHONE: Unknown Pranav Wiggins Primary Care Current PHONE: [phone] Angel has no Care Guidelines for this patient. Care History Medical/Surgical 10/12/2017 [facility] - PATIENT IS NOT WILLING TO ACCEPT HELP IN REGARDS TO LONG-TERM LIVING ARRANGEMENTS. - PATIENT IS CURRENTLY WORKING WITH GARETT AT [employer] [phone]. - CHWS/CASE MANAGEMENT WILL NOT CONTINUE TO WORK WITH PATIENT DUE TO PATIENT TURNING DOWN ALL HELP/SERVICES THAT CAN HELP THE PATIENT. 07/06/2017 [facility] - Patient is currently on parole. [place] office contact Monica . - Patient was living in a hermiston at a care facility. Per CHW at [facility] patient did not like the rules and was non compliant at the care facility. - PLEASE REFER PATIENT TO CLINIC FOR NON EMERGENT VISITS. PATIENT PCP IS DR WIGGINS. - Patient is currently established with [facility]. If patient is seen in the ED during business hours. Please contact CHWs at [facility] at [phone]. Care Recommendation: This patient has had 5 or more Emergency Department visits in the last 12 months.\T\nbsp; Patient requires education on the scope and purpose of the ED as an acute care provider not a Primary Care Provider and should not be utilized for chronic conditions.\T\nbsp; If patient returns to ED please contact Community Health WorkerElise at [phone]. These are guidelines and the provider should exercise clinical judgment when providing care. E.D. VISIT COUNT (12 MO.) 15 [facility] TOTAL 15 NOTE: Visits indicate total known visits. ED/UCC VISIT TRACKING (12 MO.) 03/25/2018 09:44 [facility] TYPE: Emergency COMPLAINT: - GLF 10/09/2017 15:45 [facility] [place] TYPE: Emergency COMPLAINT: - HIP PAIN/NO INJURY DIAGNOSES: - Hypertensive heart disease with heart failure - Allergy status to narcotic agent status - Other surg physician asst (current) drug therapy - Type 2 diabetes mellitus without complications - Pain in right hip - Fall on same level, unspecified, initial encounter - Allergy status to other drugs, medicaments and biological substances status - Allergy status to penicillin - Heart failure, unspecified - Contusion of right hip, initial encounter 10/06/2017 12:06 [facility] [place] TYPE: Emergency COMPLAINT: - FALL DIAGNOSES: - Injury of unspecified nerve at lower leg level, right leg, initial encounter - Other senior care (current) drug therapy - Allergy status to penicillin - Weakness - Heart failure, unspecified - Obesity, unspecified - Personal history of nicotine dependence - Allergy status to other drugs, medicaments and biological substances status - Fall on same level, unspecified, initial encounter - Hypertensive heart disease with heart failure - Injury of unspecified nerve at lower leg level, left leg, initial encounter - Type 2 diabetes mellitus without complications - Pain in right shoulder - Allergy status to narcotic agent status 10/04/2017 08:16 [facility] [place] TYPE: Emergency COMPLAINT: - FALL DIAGNOSES: - Allergy status to narcotic agent status - Laceration without foreign body of other part of head, initial encounter - Heart failure, unspecified - Type 2 diabetes mellitus without complications - Hypertensive heart disease with heart failure - Unspecified injury of face, initial encounter - Allergy status to other drugs, medicaments and biological substances status - Unspecified fall, initial encounter - Personal history of nicotine dependence - Other surg physician asst (current) drug therapy - Allergy status to penicillin 09/10/2017 10:57 [facility] TYPE: Emergency COMPLAINT: - ALTERED LOC DIAGNOSES: - Homelessness - Hypertensive heart and chronic kidney disease without heart failure, with stage 1 through stage 4 chronic kidney disease, or unspecified chronic kidney disease - Dehydration - Personal history of nicotine dependence - Heart failure, unspecified - Allergy status to narcotic agent status - Other senior care (current) drug therapy - care home (current) use of aspirin - Type 2 diabetes mellitus with diabetic chronic kidney disease - Syncope and collapse - Allergy status to penicillin - Allergy status to other drugs, medicaments and biological substances status - Chronic kidney disease, unspecified 09/09/2017 02:10 [facility] [place] TYPE: Emergency COMPLAINT: - LAYING IN GRASS,GOT WET DIAGNOSES: - Hypertensive heart disease with heart failure - Heart failure, unspecified - Homelessness - Personal history of transient ischemic attack (TIA), and cerebral infarction without residual deficits - Allergy status to narcotic agent status - Type 2 diabetes mellitus without complications - Other senior care (current) drug therapy - Allergy status to penicillin - care home (current) use of antibiotics - Allergy status to other drugs, medicaments and biological substances status 09/05/2017 21:32 [facility] [place] TYPE: Emergency COMPLAINT: - GROIN PAIN DIAGNOSES: - Heart failure, unspecified - Lower abdominal pain, unspecified - Hypertensive heart disease with heart failure - Allergy status to penicillin - Inflammatory disorders of scrotum - Personal history of transient ischemic attack (TIA), and cerebral infarction without residual deficits - Allergy status to other drugs, medicaments and biological substances status - Type 2 diabetes mellitus without complications - Allergy status to narcotic agent status - Other senior care (current) drug therapy 08/22/2017 12:15 [facility] [place] TYPE: Emergency COMPLAINT: - URINE PROBLEM 08/05/2017 04:59 [facility] TYPE: Emergency COMPLAINT: - FALL DIAGNOSES: - Homelessness - Personal history of nicotine dependence - Allergy status to narcotic agent status - Abrasion, right foot, initial encounter - Type 2 diabetes mellitus without complications - Striking against or struck by other objects, initial encounter - Allergy status to other drugs, medicaments and biological substances status - Allergy status to penicillin - Hypertensive heart disease with heart failure - Heart failure, unspecified 08/03/2017 07:01 [facility] TYPE: Emergency COMPLAINT: - WEAKNESS DIAGNOSES: - Other fatigue - Allergy status to narcotic agent status - Type 2 diabetes mellitus without complications - Sleep apnea, unspecified - Essential (primary) hypertension - Weakness - Allergy status to penicillin - Personal history of nicotine dependence - Other surg physician asst (current) drug therapy - Allergy status to other drugs, medicaments and biological substances status 07/18/2017 06:52 [facility] [place] TYPE: Emergency COMPLAINT: - LAC/SWOLLEN EYE DIAGNOSES: - Abrasion of other part of head, initial encounter - Other specified places as the place of occurrence of the external cause - Type 2 diabetes mellitus without complications - Hypertensive heart disease with heart failure - Allergy status to narcotic agent status - Unspecified injury of head, initial encounter - Contusion of left eyelid and periocular area, initial encounter - Allergy status to penicillin - Heart failure, unspecified - Allergy status to other drugs, medicaments and biological substances status - Other fall from one level to another, initial encounter - Personal history of transient ischemic attack (TIA), and cerebral infarction without residual deficits 07/02/2017 08:16 [facility] [place] TYPE: Emergency COMPLAINT: - WEAKNESS DIAGNOSES: - Hypertensive heart disease with heart failure - care home (current) use of oral hypoglycemic drugs - Type 2 diabetes mellitus without complications - Personal history of transient ischemic attack (TIA), and cerebral infarction without residual deficits - LONG-TERM (CURRENT) USE OF ORAL HYPOGLYCEMIC DRUGS - Allergy status to penicillin - Allergy status to other drugs, medicaments and biological substances status - Obesity, unspecified - Weakness - Heart failure, unspecified - Allergy status to narcotic agent status - Other senior care (current) drug therapy - Localized edema 06/30/2017 02:01 [facility] [place] TYPE: Emergency COMPLAINT: - BILATERAL LEG PAIN,NON INJURY DIAGNOSES: - Personal history of transient ischemic attack (TIA), and cerebral infarction without residual deficits - Pain in right leg - Pain in left leg - Allergy status to other drugs, medicaments and biological substances status - Heart failure, unspecified - Hypertensive heart disease with heart failure - Allergy status to narcotic agent status - Type 2 diabetes mellitus with diabetic neuropathy, unspecified - Allergy status to penicillin - Other chronic pain - Homelessness - Other surg physician asst (current) drug therapy - Personal history of nicotine dependence 06/01/2017 20:29 [facility] TYPE: Emergency COMPLAINT: - FLANK PAIN 06/01/2017 05:44 [facility] TYPE: Emergency COMPLAINT: - URINARY PROBLEM DIAGNOSES: - LONG-TERM (CURRENT) USE OF ORAL HYPOGLYCEMIC DRUGS - Hypertensive heart disease with heart failure - Unspecified abdominal pain - Patient's other noncompliance with medication regimen - Allergy status to penicillin - Allergy status to narcotic agent status - Other senior care (current) drug therapy - Personal history of nicotine dependence - field enumerator (current) use of aspirin - Heart failure, unspecified - Type 2 diabetes mellitus with hyperglycemia - field enumerator (current) use of oral hypoglycemic drugs - Urinary tract infection, site not specified INPATIENT VISIT TRACKING (12 MO.) 08/25/2017 17:00 [facility] [place] TYPE: Medical Surgical COMPLAINT: - SCROTAL CELLULITIS DIAGNOSES: - Heart failure, unspecified - Allergy status to other drugs, medicaments and biological substances status - Pain in unspecified knee - Old myocardial infarction - Tinea corporis - Homelessness - Inflammatory disorders of scrotum - Body mass index (BMI) 50-59.9 , adult - Type 2 diabetes mellitus with diabetic chronic kidney disease - Candidiasis of skin and nail - Personal history of transient ischemic attack (TIA), and cerebral infarction without residual deficits - Other chronic pain - Other surg physician asst (current) drug therapy - Hypertensive heart and chronic kidney disease with heart failure and stage 1 through stage 4 chronic kidney disease, or unspecified chronic kidney disease - Chronic kidney disease, stage 4 (severe) - 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 - Morbid (severe) obesity due to excess calories - Unspecified urinary incontinence - care home (current) use of aspirin - Allergy status to penicillin - Dependence on wheelchair 08/22/2017 16:02 [place] [facility] [place] TYPE: Medical Surgical COMPLAINT: - SCROTAL CELLULITIS DIAGNOSES: - Homelessness - Unspecified urinary incontinence - Allergy status to other drugs, medicaments and biological substances status - 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 - Other senior care (current) drug therapy - Body mass index (BMI) 50-59.9 , adult - Hyperlipidemia, unspecified - Morbid (severe) obesity due to excess calories - Inflammatory disorders of scrotum - Allergy status to penicillin - Allergy status to narcotic agent status - Candidiasis of skin and nail - Old myocardial infarction - Hypertensive chronic kidney disease with stage 1 through stage 4 chronic kidney disease, or unspecified chronic kidney disease - Chronic kidney disease, stage 3 (moderate) - Type 2 diabetes mellitus with diabetic chronic kidney disease - Dependence on wheelchair - Personal history of transient ischemic attack (TIA), and cerebral infarction without residual deficits 06/01/2017 20:30 [facility] TYPE: Medical Surgical COMPLAINT: - ALTERED MENTAL STATUS/UTI DIAGNOSES: - Other senior care (current) drug therapy - Morbid (severe) obesity due to excess calories - Chronic kidney disease, stage 3 (moderate) - Hyperlipidemia, unspecified - Patient's noncompliance with other medical treatment and regimen - Personal history of nicotine dependence - Homelessness - Urinary tract infection, site not specified - Allergy status to narcotic agent status - Old myocardial infarction - Allergy status to other drugs, medicaments and biological substances status - Personal history of transient ischemic attack (TIA), and cerebral infarction without residual deficits - Generalized abdominal pain - Heart failure, unspecified - Body mass index (BMI) 50-59.9 , adult - Type 2 diabetes mellitus with diabetic chronic kidney disease - Hypertensive heart and chronic kidney disease with heart failure and stage 1 through stage 4 chronic kidney disease, or unspecified chronic kidney disease - Allergy status to penicillin - Cardiac murmur, unspecified - Somnolence - 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
[2018-03-25] MEDS ORDERED: METHYLPREDNISOLO4 M1 PO (12:18)
[2018-03-25] MEDS ORDERED: KETOROLAC TROME10 MG PO (12:18)
== END 2018-03-25 12:45 | disposition home or self-care (01) ==
LOC: ED 09:44
DX: M25.551 Pain in right hip (principal); E11.9 Type 2 diabetes mellitus without complications; I11.0 Hypertensive heart disease with heart failure; I50.9 Heart failure, unspecified; Z86.73 Personal history of transient ischemic attack (TIA), and cerebral infarction without residual deficits; Z87.891 Personal history of nicotine dependence; Z88.0 Allergy status to penicillin; Z88.5 Allergy status to narcotic agent; Z88.8 Allergy status to other drugs, medicaments and biological substances; Z79.899 Other long term (current) drug therapy; W19.XXXA Unspecified fall, initial encounter
CPT/HCPCS: 71045; 73502; 99283-25

== ENCOUNTER 2019-05-05 03:40 | Emergency (ER) | payer MEDICARE, OTHER ==
[~2019-05-05] VITALS: Ht 175.3 cm; Wt 179.7 kg
[~2019-05-05 03:40] MED LIST changes: +KETOROLAC TROME10 MG PO; +METHYLPREDNISOLO4 M1 PO
--- OUTSIDE RECORDS SUMMARY | 2019-05-05 03:44 | XMS ---
PreManage Notification: SERGIO ROA Security Account Executive Sales Representative Events No recent Security Events currently on file CRITERIA MET - Group Notification - [facility] - 2 Visits in 30 Days CARE PROVIDERS Marcia Kent Money Order Clerk/Postdoctoral Research Associate 01/16/2019-Current PHONE: [phone] Yordy Looney [facility] 03/26/2018-Current PHONE: [phone] PRANAV WIGGINS Internal Medicine 09/09/2017-Current PHONE: Unknown Marcia Kent Primary Care 01/16/2019-Current PHONE: [phone] YADIRA SERRA Primary Care Current PHONE: [phone] Pranav Wiggins [facility] Current PHONE: [phone] Angel has no Care Guidelines for this patient. Care History Medical/Surgical 05/04/2019 [facility] - THIS PATIENT IS WELL KNOWN TO THE CASE MANAGEMENT STAFF. - PATIENT HAS BEEN PROVIDED HELP WITH HOUSING MULTIPLE TIMES. - PATIENT CHOOSES TO LEAVE GROUP HOMES AND OR FACILITIES ON HIS OWN. 10/12/2017 [facility] - PATIENT IS NOT WILLING TO ACCEPT HELP IN REGARDS TO ALF LIVING ARRANGEMENTS. - PATIENT IS CURRENTLY WORKING WITH GARETT AT [facility] [phone]. - CHWS/CASE MANAGEMENT WILL NOT CONTINUE TO WORK WITH PATIENT DUE TO PATIENT TURNING DOWN ALL HELP/SERVICES THAT CAN HELP THE PATIENT. 07/06/2017 [facility] - Patient is currently on parole. [place] office contact Monica . - Patient was living in a hermiston at a care facility. Per CHW at [facility] patient did not like the rules and was non compliant at the care facility. - PLEASE REFER PATIENT TO CLINIC FOR NON EMERGENT VISITS. PATIENT PCP IS DR WIGGINS. - Patient is currently established with [facility]. If patient is seen in the ED during business hours. Please contact CHWs at [facility] at [phone]. Care Recommendation: This patient has had 5 or more Emergency Department visits in the last 12 months. Patient requires education on the scope and purpose of the ED as an acute care provider not a Primary Care Provider and should not be utilized for chronic conditions. If patient returns to ED please contact Community Health WorkerElise at [phone]. These are guidelines and the provider should exercise clinical judgment when providing care. E.D. VISIT COUNT (12 MO.) 2 [facility]. TOTAL 2 NOTE: Visits indicate total known visits. ED/C VISIT TRACKING (12 MO.) 05/05/2019 03:41 [facility] TYPE: Emergency COMPLAINT: - FALL 05/03/2019 18:56 [facility] TYPE: Emergency COMPLAINT: - MULTIPLE COMPLAINTS INPATIENT VISIT TRACKING (12 MO.) No inpatient visits to display in this time frame [email or web address]
== END 2019-05-05 06:05 | disposition home or self-care (01) ==
LOC: ED 03:40
DX: S76.012A Strain of muscle, fascia and tendon of left hip, initial encounter (principal); S76.011A Strain of muscle, fascia and tendon of right hip, initial encounter; S80.02XA Contusion of left knee, initial encounter; I11.0 Hypertensive heart disease with heart failure; I50.9 Heart failure, unspecified; E11.9 Type 2 diabetes mellitus without complications; Z86.73 Personal history of transient ischemic attack (TIA), and cerebral infarction without residual deficits; Z87.891 Personal history of nicotine dependence; Z88.0 Allergy status to penicillin; Z88.5 Allergy status to narcotic agent; Z88.8 Allergy status to other drugs, medicaments and biological substances; Z79.899 Other long term (current) drug therapy; X58.XXXA Exposure to other specified factors, initial encounter
CPT/HCPCS: 70450; 72170; 73560; 99284-25

== ENCOUNTER 2019-05-06 06:48 | Emergency (ER) | payer MEDICARE, OTHER ==
[~2019-05-06] VITALS: Ht 175.3 cm; Wt 179.7 kg
--- OUTSIDE RECORDS SUMMARY | 2019-05-06 06:50 | XMS ---
PreManage Notification: SERGIO ROA Security Magazine Grinder Loader Events No recent Security Events currently on file CRITERIA MET - Group Notification - [facility] - 2 Visits in 30 Days CARE PROVIDERS Marcia Kent Spa Associate/Aesthetics Instructor 01/16/2019-Current PHONE: [phone] Yordy Looney [facility] 03/26/2018-Current PHONE: [phone] PRANAV WIGGINS Internal Medicine 09/09/2017-Current PHONE: Unknown Marcia Kent Primary Care 01/16/2019-Current PHONE: [phone] YADIRA SERRA Primary Care Current PHONE: [phone] Pranav Wiggins [facility] Current PHONE: [phone] Angel has no Care Guidelines for this patient. Care History Medical/Surgical 05/04/2019 [facility] - THIS PATIENT IS WELL KNOWN TO THE CASE MANAGEMENT STAFF. - PATIENT HAS BEEN PROVIDED HELP WITH HOUSING MULTIPLE TIMES. - PATIENT CHOOSES TO LEAVE GROUP HOMES AND OR FACILITIES ON HIS OWN. 10/12/2017 [facility] - PATIENT IS NOT WILLING TO ACCEPT HELP IN REGARDS TO ALF LIVING ARRANGEMENTS. - PATIENT IS CURRENTLY WORKING WITH GARETT AT [facility] [phone]. - CHWS/CASE MANAGEMENT WILL NOT CONTINUE TO WORK WITH PATIENT DUE TO PATIENT TURNING DOWN ALL HELP/SERVICES THAT CAN HELP THE PATIENT. 07/06/2017 [facility] - Patient is currently on parole. [place] office contact Monica . - Patient was living in a hermiston at a care facility. Per CHW at [facility] patient did not like the rules and was non compliant at the care facility. - PLEASE REFER PATIENT TO CLINIC FOR NON EMERGENT VISITS. PATIENT PCP IS DR WIGGINS. - Patient is currently established with [facility]. If patient is seen in the ED during business hours. Please contact CHWs at [facility] at [place] [phone]. Care Recommendation: This patient has had 5 or more Emergency Department visits in the last 12 months. Patient requires education on the scope and purpose of the ED as an acute care provider not a Primary Care Provider and should not be utilized for chronic conditions. If patient returns to ED please contact Community Health WorkerElise at [phone]. These are guidelines and the provider should exercise clinical judgment when providing care. E.D. VISIT COUNT (12 MO.) 3 [facility]. TOTAL 3 NOTE: Visits indicate total known visits. ED/C VISIT TRACKING (12 MO.) 05/06/2019 06:48 [facility] TYPE: Emergency COMPLAINT: - FALL 05/05/2019 03:41 [facility] TYPE: Emergency COMPLAINT: - FALL 05/03/2019 18:56 [facility] [place] TYPE: Emergency COMPLAINT: - MULTIPLE COMPLAINTS DIAGNOSES: - 1 Type 2 diabetes mellitus without complications - Hypertensive heart disease with heart failure - Exposure to other specified factors, initial encounter - Allergy status to penicillin - Other superintendent terminal (current) drug therapy - Personal history of nicotine dependence - Heart failure, unspecified - Cervicalgia - Contusion of other part of head, initial encounter - Unspecified sprain of left wrist, initial encounter - Strain of muscle, fascia and tendon at neck level, init INPATIENT VISIT TRACKING (12 MO.) No inpatient visits to display in this time frame [id number]
--- NOTE | 2019-05-06 20:39 | EKG ---
[facility] [address] [place], [place] [address] Signed Sinus rhythm with 1st degree AV block Left anterior fascicular block Inferior infarct (cited on or before 03-AUG-2017) Abnormal ECG When compared with ECG of 03-AUG-2017 07:16, No significant change was found Confirmed by FRANCIS RHODES DO ([id number]) on 05/06/2019 8:39:24 PM Electronically Signed By: FRANCIS RHODES DO 05/06/19 2039 PATIENT NAME: JANINASERGIO Electrocardiogram DATE OF : 42 PHYSICIAN: FRANCIS RHODES DO REPORT #: [id number] REPORT IS CONFIDENTIAL AND NOT TO BE RELEASED WITHOUT AUTHORIZATION
== END 2019-05-06 12:55 | disposition short-term general hospital (02) ==
LOC: ED 06:48
DX: R41.82 Altered mental status, unspecified (principal); E11.9 Type 2 diabetes mellitus without complications; I11.0 Hypertensive heart disease with heart failure; I50.9 Heart failure, unspecified; Z87.891 Personal history of nicotine dependence; Z88.0 Allergy status to penicillin; Z88.5 Allergy status to narcotic agent; Z79.899 Other long term (current) drug therapy
CPT/HCPCS: 51702; 70450; 71045; 80053; 81001; 82010; 82140; 82550; 82803; 83880; 85025; 93005; 93010; 99284-25; G0480; J1956; J7121

== ENCOUNTER 2019-05-07 18:16 | Inpatient (IN) | payer MEDICARE, OTHER ==
[~2019-05-07] VITALS: Ht 175.3 cm; Wt 164.8 kg
--- OUTSIDE RECORDS SUMMARY | 2019-05-07 18:20 | XMS ---
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 Care History Medical/Surgical 05/04/2019 [facility] - THIS PATIENT IS WELL KNOWN TO THE CASE MANAGEMENT STAFF. - PATIENT HAS BEEN PROVIDED HELP WITH HOUSING MULTIPLE TIMES. - PATIENT CHOOSES TO LEAVE GROUP HOMES AND OR FACILITIES ON HIS OWN. 10/12/2017 [facility] - PATIENT IS NOT WILLING TO ACCEPT HELP IN REGARDS TO SENIOR CARE LIVING ARRANGEMENTS. - PATIENT IS CURRENTLY WORKING WITH [facility] AT [facility] [phone]. - CHWS/CASE MANAGEMENT WILL NOT CONTINUE TO WORK WITH PATIENT DUE TO PATIENT TURNING DOWN ALL HELP/SERVICES THAT CAN HELP THE PATIENT. 07/06/2017 [facility] - Patient is currently on parole. [place] office contact Monica . - Patient was living in a hermiston at a care facility. Per CHW at [facility] patient did not like the rules and was non compliant at the care facility. - PLEASE REFER PATIENT TO CLINIC FOR NON EMERGENT VISITS. PATIENT PCP IS DR WIGGINS. - Patient is currently established with [facility]. If patient is seen in the ED during business hours. Please contact CHWs at [facility] at [phone]. Care Recommendation: This patient has had 5 or more Emergency Department visits in the last 12 months. Patient requires education on the scope and purpose of the ED as an acute care provider not a Primary Care Provider and should not be utilized for chronic conditions. If patient returns to ED please contact Community Health WorkerElise at [phone]. These are guidelines and the provider should exercise clinical judgment when providing care. E.D. VISIT COUNT (12 MO.) 4 [facility]. TOTAL 4 NOTE: Visits indicate total known visits. ED/C VISIT TRACKING (12 MO.) 05/07/2019 18:17 [facility] TYPE: Emergency COMPLAINT: - LEG FAILURE 05/06/2019 06:48 [facility] TYPE: Emergency COMPLAINT: - FALL 05/05/2019 03:41 [facility] TYPE: Emergency COMPLAINT: - FALL DIAGNOSES: - Strain of muscle, fascia and tendon of right hip, initial enc - Pain in right hip - Allergy status to other drugs, medicaments and biological sub - Contusion of left knee, initial encounter - 1 Type 2 diabetes mellitus without complications - Strain of muscle, fascia and tendon of left hip, initial enco - Hypertensive heart disease with heart failure - Personal history of transient ischemic attack (TIA), and cere - Allergy status to narcotic agent status - 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 - Exposure to other specified factors, initial encounter - Personal history of nicotine dependence - Allergy status to penicillin - Heart failure, unspecified 05/03/2019 18:56 [facility] TYPE: Emergency COMPLAINT: - MULTIPLE COMPLAINTS DIAGNOSES: - 1 Type 2 diabetes mellitus without complications - Hypertensive heart disease with heart failure - Exposure to other specified factors, initial encounter - Allergy status to penicillin - Other assisted (current) drug therapy - Personal history of nicotine dependence - Heart failure, unspecified - Cervicalgia - Contusion of other part of head, initial encounter - Unspecified sprain of left wrist, initial encounter - Strain of muscle, fascia and tendon at neck level, initial en INPATIENT VISIT TRACKING (12 MO.) No inpatient visits to display in this time frame [email or web address]
--- NOTE | 2019-05-07 20:23 | NUR ---
pt was partially cleaned. his feet, legs, hands, and arms. He told me that he "it hurts, are you done yet?" angrily. I stated I am trying to help you get cleaned up and he said "please stop." I replied "Hopefully tomorrow you could get a shower, or another partial bath" He said "maybe." and we left it at that.
--- NOTE | 2019-05-07 20:23 | NUR ---
PT ARRIVED VIA STRETCHER, MOVED HIM OVER WITH 5PA TO BED. OLE SHEET PLACED UNDER PATIENT ALONG WITH FRESH CHUX PADS. PT IS ON 2L OXYMASK RR IS EVEN AND NONLABORED. STARTING ADMISSION HX AND VS AT THIS TIME.
--- NOTE | 2019-05-07 22:03 | NUR ---
US TECH IN ROOM AND PT UNABLE TO MOVE TO CORRECT POSITION. 4PA TO ROLL PT AND REPOSITION. US TECH IS IN ROOM WITH PT AT THIS TIME.
--- NOTE | 2019-05-07 22:40 | NUR ---
ASSESSMENT COMPLETED. ABRASIONS NOTED TO FOREHEAD, NOSE AND LEFT KNEE. GENERALIZED EDEMA IN ALL EXTREMITIES. MAGALIE, WARM SKIN IN ALL EXTREMITIES. LUNG SOUNDS CLEAR. PT WAKES TO NAME. SCHEDULED MED PROVIDED. NO OTHER NEEDS. CALL LIGHT IN REACH.
--- NOTE | 2019-05-08 00:20 | NUR ---
PT RESTING IN BED, EYES CLOSED. RR EVEN, UNLABORED. CALL LIGHT IN REACH, BED ALARM ON.
--- NOTE | 2019-05-08 01:51 | NUR ---
PT STATES HE HAS TO PEE. PT ASSISTED TO USE URINAL. PT UNABLE TO URINATE. BLADDER SCAN SHOWS 616ml. PT ASSISTED TO SIT AT BEDSIDE, 2PA. PT URINATED IN URINAL WITH ASSISTANCE. SCHEDULED MED PROVIDED WITH CONSENT SIGNED. VS AND I&O COMPLETED. NO OTHER NEEDS AT THIS TIME. CALL LIGHT IN REACH.
--- NOTE | 2019-05-08 06:04 | NUR ---
ASSESSMENT, VS AND I&O COMPLETED. EDEMA AND REDNESS UNCHANGED IN ALL EXTREMITIES. LUNGS CLEAR. WATER PROVIDED. PT DENIES NEED TO USE URINAL. NO OTHER NEEDS. CALL LIGHT IN REACH.
--- NOTE | 2019-05-08 07:00 | NUR ---
PT RESTING SUPINE IN BED EYES CLOSED AND RESPIRATIONS EVEN AND UNLABORED. PT APPEARS TO BE SLEEPING COMFORTABLY. REPORT RECEIVED FROM NÉSTOR MALDONADO.
--- NOTE | 2019-05-08 08:12 | NUR ---
Vancomycin dosed at 2000mg q 12 hrs. Vanco trough scheduled for 05/09/19 @ 0830. Pharmacist will assess trough level and make any adjustments if indicated
--- NOTE | 2019-05-08 08:53 | NUR ---
PT RESTING SUPINE IN BED ALERT AND ORIENTED CALL LIGHT AND FRESH H2O IN REACH. PT ASSESSMENT COMPLETED AND AM MEDS ADMINISTERED. PT DENIES PAIN, SOB OR NAUSEA. WARM BLANKET PROVIDED PER PT REQUEST.
--- NOTE | 2019-05-08 10:22 | NUR ---
PATIENT IN BED RESTING WITH EYES CLOSED. O2 LOW, RN NOTIFIED. CALL LIGHT IN REACH. NO FURTHER NEEDS AT THIS TIME.
[2019-05-08] MEDS ORDERED: VITAMIN D31250 MC1 PO (12:09)
[2019-05-08] MEDS ORDERED: GLIPIZIDE ER10 MG PO (12:09)
--- NOTE | 2019-05-08 12:20 | NUR ---
PT SITTING UP IN BED EATING LUNCH NO NEEDS OR CONCERNS VOICED. CALL LIGHT AND H2O IN REACH. PT APPEARS TO BE IN NO DISTRESS AND DENIES PAIN, SOB OR NAUSEA.
--- NOTE | 2019-05-08 14:00 | NUR ---
PT RESTING SUPINE IN BED, PT ALERT AND ORIENTED. PT ASSISTED UP TO SHOWER AND THEN BACK TO BED WITH 2PA. ASSESSMENT COMPLETED. CALL LIGHT AND H2O IN REACH.
--- NOTE | 2019-05-08 15:18 | NUR ---
PATIENT TRANSFERED TO SHOWER CHAIR, 2PA PIVOT. NÉSTOR JOHNS ASSISTED PATIENT WITH SHOWER. LINENS CHANGED. JITENDRA CARE, SKIN CARE, SHAMPOO DONE. NEW GOWN PROVIDED. PATIENT NOW SITTING IN EDGE OF BED, PIVOT TRANSFER BACK TO BED, 2PA. CALL LIGHT IN REACH. NO FURTHER NEEDS AT THIS TIME.
--- NOTE | 2019-05-08 16:39 | NUR ---
M DNOTIFIED OF LOW U/O, NO NEW VERBAL ORDERS RECEIVED.
--- NOTE | 2019-05-08 19:03 | NUR ---
PATIENT IN BED RESTING. CALL LIGHT IN REACH. NO FURTHER NEEDS AT THIS TIME.
--- NOTE | 2019-05-08 19:46 | NUR ---
Receieved report from NÉSTOR Rinaldi. Pt alert, laying in bed. No distress noted, asked for sugar free jello. Cooperative. Will be back for assessment.
--- NOTE | 2019-05-08 21:03 | NUR ---
PT SITTING IN BED, ALERT. VOIDED USING THE URINAL. DONE WITH ASSESSMENT. FLUSHED IV WITH 10 ML OF NS WITHOUT DIFFICULTIES.
--- NOTE | 2019-05-08 22:20 | NUR ---
PT IN BED ON HIS RIGHT SIDE. APPEARS ASLEEP. BREATHING NORMALLY, RR 18, NO DISTRESS NOTED. BED IN LOW POSITION, CALL LIGHT IN REACH, DIM LIGHT IN THE ROOM FOR SAFETY.
--- NOTE | 2019-05-08 23:20 | NUR ---
PT CALLS APPROPRIATELELY, VOIDED 550 YELLOW URINE WHILE SITTING ON THE EDGE OF THE BED. POLITE, COOPERATIVE. BACK TO BED.
--- NOTE | 2019-05-09 00:21 | NUR ---
PT WITH EYES CLOSED, ASLEEP. BREATHING NORMALLY, RR 16, NO DISTRESS NOTED. BED IN LOW POSITION, CALL LIGHT IN REACH.
--- NOTE | 2019-05-09 00:50 | NUR ---
PT REPORTED HEADACHE. ADMINISTERED TYL [id number]. VANCO COMPLETE. NEW BAG OF NS STARTED AT 125ML/H. DONE WITH ASSESSMENT.
--- NOTE | 2019-05-09 01:43 | NUR ---
CALL LIGHT ANSWERED. PT WOULD LIKE TO SIT ON THE EDGE OF THE BED FOR A WHILE. STATED HE HAS NO PAIN, JUST "UNCOMFORTABLE". CALL LIGHT IN REACH, URINAL AMD TV REMOTE IN REACH WELL.
--- NOTE | 2019-05-09 02:09 | NUR ---
PT IS SITTING ON THE EDGE OF THE BED. STATED "I AM WORKING MY MUSCLES A LITTLE BIT. LEFT TO RIGHT, RIGHT OT LEFT. TRYING TO GET STRONGER AND BETTER". NO NEEDS AT THE MOMENT. CALL LIGHT IN REACH.
--- NOTE | 2019-05-09 05:43 | NUR ---
PT INCONTINENT. BED WAS CHANGED. PT COOPERATIVE BUT WEAK AND NOT ABLE TO HELP. LAYING ON HIS RIGHT SIDE WITH PILLOWS BEHIND HIS BACK AND ONE PILLOW BETWEN HIS LEGS FOR SUPPORT. CALL LIGHT IN REACH.
--- NOTE | 2019-05-09 07:21 | NUR ---
REPORT RECEIVED FROM NÉSTOR PONCE. PT RESTING ON RIGHT SIDE WITH EYES CLOSED. RESPIRATIONS EVEN AND UNLABORED. BED RAILS UP. CALL LIGHT WITHIN REACH. PT ALLOWED TO REST.
--- NOTE | 2019-05-09 08:33 | NUR ---
MORNING ASSESSMENT AND MEDICATION DUE. PT REPORTS 08/25 HEADACHE. SEE MAR FOR MEDICATION GIVEN. UP TO EDGE OF BED FOR BREAKFAST. HAIR COMBED PER PT REQUEST. PT CONTINTUES TO REPORT EXTREEM WEAKNESS "LIKE MOST OF MY BODY IS ALREADY AND SOMEBODY IS TRYING TO RIP THE MUSCLES OUT OF MY LEGS." ASSESSMENT DONE. REDNESS CONTINUES TO LOWER EXTREMITIES. BOWEL TONES HEARD. PT DECLINES MIRALAX. PT ASSISTED WITH MAKING PHONE CALL AND OPERATING TV. WARM BLANKETS PROVIDED. NO ADDITIONAL REQUESTS OR COMPLAINTS AT THIS TIME. CALL LIGHT WITHIN REACH.
--- NOTE | 2019-05-09 10:02 | NUR ---
PATIENT IN BED RESTING, RN IN ROOM. CALL LIGHT IN REACH. NO FURTHER NEEDS AT THIS TIME.
--- NOTE | 2019-05-09 10:07 | NUR ---
THIS RN TO ROOM TO CHECK ON PT. PT REQUESTS ASSISTANCE BACK TO BED. 2PA, WITH OLE BACK INTO BED. PT REPORTS 11/10 PAIN IN HEAD AND HANDS. MD AWARE. PHARMACY CONFIRMS THAT VANCO TROUGH WAS TOO HIGH, VANCO DOSE HELD. VITALS TAKEN. PTS DAUGHTER, ARPIT, CALLED WITH UPDATE ON PT STATUS. PTS DAUGHTERS EXPRESSES CONCERNS THAT "THIS WILL ALL HAPPEN AGAIN." DAUGHTER WOULD LIKE PT TO BE PLACED IN A CARE HOME. DAUGHTER WOULD LIKE A CALL FROM CASE MANAGMEENT CASE MANAGMENT NOTIFIED. PT RESTING IN BED. BED RAILS UP. CALL LIGHT WITHIN REACH.
--- NOTE | 2019-05-09 10:57 | NUR ---
Vancomycin trough drawn at 0830 today was supratherapeutic at 23.1. Delay restarting until 1400 today and lower dose to 1500mg q 12 hrs
--- NOTE | 2019-05-09 11:55 | NUR ---
NOON ASSESSMENT DUE. THIS RN TO ROOM. PT UP TO EDGE OF BED FOR LUNCH. PT REPORTS 7/10 HEADACH PAIN THAT "IS EASING DOWN." SWELLING CONTINUES TO BLE AND UPPER EXTREMITIES. PT OREINTED TO SELF AND SITUATION BUT NOT ORIENTED TO DATE OR TIME. ADONAY NOTED. CASE MANAGEMENT TO BEDSIDE. WHEN ASKED WHERE HE STAYED PT STATES "THEY KICKED ME OUT...BECAUSE I HAVE A URINARY PROBLEM AND COULDN'T HELP IT." PT VISITING WITH CASE MANAGEMENT AND EATING LUNCH. NO ADDITIONAL REQUESTS OR COMPLAINTS. CALL LIGHT WITHIN REACH.
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
--- NOTE | 2019-05-09 12:28 | NUR ---
PT LAYING IN BED, TV OFF. PT SAID HELLO, ALL LIGHTS OUT. PT STATED HE WOULD LIKE SOME REST AND ASKED IF I COULD RETURN.
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
--- NOTE | 2019-05-09 13:07 | NUR ---
THIS RN TO ROOM TO CHECK ON PT. PT SITTING ON EDGE OF BED FALLING ASLEEP AND LEANING FORWARD. PT WOKEN UP. PT TALKING ABOUT "PUTTING A BULLET THROUGH MY HEAD." WHEN ASKED PT CONFIRMS THAT HE IS CONSIDERING SUICIDE. PT STATES HE WOULDN'T DO ANYTHING WHILE HERE AT THE HOSPTIAL. CHARGE NURSE NOTIFIED. PT UP TO STAND. LINENS CHANGED. PT BACK TO BED AND RESTING WITH EYES CLOSED. WARM BLANKETS PROVIDED. BEDR AILS UP. CALL LIGHT WITHIN REACH.
--- NOTE | 2019-05-09 13:27 | NUR ---
SUICIDE RE-EVALUATION COMPLETED. PT STATES "I KNOW ITS A SIN SO I WOULDN'T DO IT." "I HAVE A BULLET WITH MY NAME ON IT BUT I THREW IT AWAY." [facility] CONTACTED. AERIAL PLANTING AND CULTIVATION MANAGER UPDATED.
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
--- NOTE | 2019-05-09 13:45 | NUR ---
13:30 - [facility] CONTACTED BY NÉSTOR RAMSAY, PT MOVED TO ROOM 120 FOR DIRECT OBSERVATION FROM NURSES STATION. ALL CORDS AND OBJECTS THAT CAN BE USED WEAPONS REMOVED FROM ROOM. 1345 - PT PLACED ON 1:1 OBSERVATION WITH Q 15MINUTE ASSESSMENTS DONE. GUILLERMO ADAMS AT BEDSIDE WITH PT, UPDATED BY THIS RN. PT RESTING COMFORTABLY ON RIGHT SIDE. CALM AND COOPERATIVE AT THIS TIME.
--- NOTE | 2019-05-09 14:02 | NUR ---
PATIENT RESTING IN BED. DR CONWAY MAKING AN ASSESSMENT. PATIENT NOT MAKING ANY THREATS NOW. NO CORDS IN REACH.
--- NOTE | 2019-05-09 14:18 | NUR ---
FROY FROM [employer] ARRIVED, UPDATED BY THIS RN. VISITING WITH PTLinda ADAMS, GUILLERMO REMAINS AT BEDSIDE.
--- NOTE | 2019-05-09 15:19 | NUR ---
MEDICATION DUE. THIS RN TO ROOM. IV ASSESSED, WNLLinda WALTON STARTED (SEE MAR), INFUSING CONCURRENTLY WITH IV FLUIDS. PT WORKING WITH PHYSICAL THERAPY. NO ADDITIONAL REQUESTS OR COMPLAINTS AT THIS TIME.
--- NOTE | 2019-05-09 15:20 | NUR ---
PT CLEARED BY MORENITA MCD[facility]FF[facility] SYSTEM[facility] SOFTWARE ENGINEER. FROY STATES PT NO LONGER NEEDS 1:1 CARE. PTS BELONGINGS RETURNED. PT RESTING IN BED. NO REQUESTS OR COMPLAINTS AT THIS TIME. CALL LIGHT WITHIN REACH.
--- NOTE | 2019-05-09 15:26 | NUR ---
EARLIER TODAY RN SINCERE REPORTED TO THIS RN THAN PT WAS STATING THAT HE HAD A BULLET WITH HIS NAME ON IT. ALERTED OBSERVER ELECTRICAL PROSPECTING KULWANT AND MOVED HIM TO ROOM 121 IN DIRECT SITE OF NURSES STATION. PLACED ON 1:1 WITH GUILLERMO ADAMS. CALLED [employer]. THEY CAME AND EVALUATED. FORMS ON CHART. STATES THAT HE DOES NOT NEED TO BE A 1:1. CHARGING CAR OPERATOR IN ROOM TO WORK WITH PT.
--- NOTE | 2019-05-09 17:00 | NUR ---
PT WHEELED FROM MED/SURG WITH ALL BELONGINGS. NO ADDITIONAL REQUESTS OR COMPLAINTS.
--- NOTE | 2019-05-09 17:00 | NUR ---
PT UP TO EDGE OF BED FOR DINNER. NO REQUESTS OR COMPLAINTS. WILL DO ASSESSMENT AFTER PT FINSHES EATING. CALL LIGHT WITHIN REACH. PT EASILY VIEWED FROM NURSES STATION. PT NOTED TO BE SMILING AND CHEERFUL AT THIS TIME.
--- NOTE | 2019-05-09 17:00 | NUR ---
AFTERNOON ASSESSMENT DUE. PT SITTING ON EDGE OF BED FOR DINNER. PT ABLE TO GET SELF BACK INTO BED AFTER DINNER WITH MINIMAL ASSIST. PT REPORTS 9/10 PAIN WHEN ASKED ABOUT HEADACHE BUT THEN POINTS TO 6/10 ON FACES SCALE. PT REPORTS "ITS FINE JUST BERNICE ALWAYS THERE." SEE MAR FOR MEDICATION GIVEN. ASSESSMENT DONE. FEET WET, SOCKS CHANGED. EDEMA CONTINUES. VITALS TAKEN. NEW IV FLUIDS HUNG, VANCO INFUSION COMPLETE. IV WNL WITH NO REDNESS OR SWELLING NOTED. NO ADDITIONAL REQUESTS OR COMPLAINTS AT THIS TIME. CALL LIGHT WITHIN REACH. PT EASILY VIEWED FROM NURSES STATION.
--- NOTE | 2019-05-09 18:01 | NUR ---
PT RESTING IN BED WITH EYES CLOSED. RESPIRATIONS EVEN AND UNLABORED. CALL LIGHT WITHIN REACH. PT EASILY VIEWED FROM NURSES STATION.
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
--- NOTE | 2019-05-09 19:33 | NUR ---
RECEIVED REPORT FORM MORNING SHIFT. PT IMPROVING, ABLE TO GET UP WITH HELP INSTED OF USE OF OLE LIFT. CALLS APPROPRIATELY.
--- NOTE | 2019-05-09 19:51 | NUR ---
PT RESTING IN BED WITH ERYES CLOSED. EASY AWAKES TO VOICE. VSS. DOEN WITH ASSESSMENT.
--- NOTE | 2019-05-09 20:12 | NUR ---
IV SITE FLUSHED WITH 10 ML OF NS WITHOUT ANY DIFFICULTIES. DRESSING IS PATENT. PT IN NO DISTRESS. SLEEPY. LUNCHS SOUND CLEAR, SPO2 92 ON RA. BG 152, INSULIN ONE UNIT NEEDED PER SLIDING SCALE.
--- NOTE | 2019-05-09 23:06 | NUR ---
pt is asleep. no distress noted. breahing normally.
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
--- NOTE | 2019-05-09 23:58 | NUR ---
3 PLUS PA CHANGED BED LINEN, GOWN AND BATH WIPE.
--- NOTE | 2019-05-10 00:35 | NUR ---
THIS GLAZING MACHINE OPERATOR AND PUBLIC WORKS LABORER GONZALO HELPED PATIENT REPOSITIONED. BED ALARM ON FOR SAFETY.
--- NOTE | 2019-05-10 00:50 | NUR ---
pt SATURATIONS DECREASE TO 88% ON 2L OXYGEN BY NC WHILE SLEEPING, 3L OXYGEN BY NC IN PLACE, SPO2 INCREASES TO 92%. BED ALARM ON.
--- NOTE | 2019-05-10 02:38 | NUR ---
PT SLEEPY, RESPONSIVE TO VOICE. ORIENTED TO HIMSAELF, PLACE AND SITUATION. EDEMA 2+ NOTED ON PT LOW AND UPPER EXTRIMETIES. DENIED PAIN AT THE MOMENT. NÉSTOR STEPHENSON STARTED NEW IV ON R ARM. DONE WITH ASSESSMENT.
--- NOTE | 2019-05-10 05:58 | NUR ---
PT APPEARS MORE SLEEPY THIS SHIFT. ORIENTED TO HIMSELF, SITUATION AND PLACE. INCONTINENT TO URINE. INCREASED EDEMA AND ELEVATED BP THIS NIGHT. STOPPED CONT FLUIDS. LEFT IV WAS NOT ABLE TO FLUSH, D/C. NÉSTOR STEPHENSON STARTED NEW IV - RIGHT AC. PT RECEIVED VANCO AND TONIGHT. INSULIN WAS ADMINISTERED PER SLIDING SCALE. NO PAIN OR DISCOMFORT WAS REPORTED THIS SHIFT.
--- NOTE | 2019-05-10 07:15 | NUR ---
Bedside report received by NÉSTOR Mckoy and NÉSTOR Sánchez. Patient sleeping in bed, respirations even and unlabored. Call light within reach.
--- NOTE | 2019-05-10 08:09 | NUR ---
PATIENT SITTING IN CHAIR EATING BREAKFAST. AM MEDS GIVEN. PT ABLE TO FEED HIMSELF. CALL LIGHT WITHIN REACH.
--- NOTE | 2019-05-10 09:45 | NUR ---
Patient working with physical therapy
--- NOTE | 2019-05-10 10:35 | NUR ---
PATIENT WORKED WITH PT. PATIENT NOW SITTING ON EDGE OF BED. CALL LIGHT IN REACH. NO FURTHER NEEDS AT THIS TIME.
--- NOTE | 2019-05-10 11:45 | NUR ---
Patient sitting up at the bedside with feet on floor, lunch delivered. BS of 175, insulin given (see MAR). Patient denies needs at this time, call light within reach.
--- NOTE | 2019-05-10 12:59 | NUR ---
THIS RN TO ROOM TO CHECK ON PT. PT SITTING ON EDGE OF BED READING THROUGH PAMPHELTS AND MENU. PT REQUESTS ASSISTANCE WITH COMBING HAIR. HAIR COMBED. NO ADDIITONAL REQUESTS OR COMPLAINTS. CALL LIGHT WITHIN REACH. PT EASILY VIEWED FROM NURSES STATION.
--- NOTE | 2019-05-10 14:01 | NUR ---
Patient laying down in bed, sleeping. Respirations even and unlabored. Call light within reach.
--- NOTE | 2019-05-10 14:04 | NUR ---
DR CONWAY REQUESTED I VISIT WITH PT, PT WAS SOUND ASLEEP. DR CONWAY SAID GOOD HE NEEDED TO. WILL CHECK AGAIN
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
--- NOTE | 2019-05-10 14:38 | NUR ---
PT CALL LIGHT ON. PT REQUESTS ASSISTANCE UP TO BEDSIDE TO VOID. 1PA UP TO SIT. PT VOIDS WITHOUT ISSUE. PT SITTING ON EDGE OF BED. ICE WATER REFILLED. CALL LIGHT WITHIN REACH. PT EASILY VIEWED FROM NURSES STATION.
--- NOTE | 2019-05-10 15:00 | NUR ---
THIS RN ASSUMING CARE OF PT. REPORT RECEIVED FROM NÉSTOR SHOOK. PT RESTING IN BED WITH EYES CLOSED. RESPIRATIONS EVEN AND UNLABORED. BED RAILS UP. CALL LIGHT WITHIN REACH.
--- NOTE | 2019-05-10 17:12 | NUR ---
AFTERNOON ASSESSMENT DUE. PT UP TO CHAIR AFTER INCONTINAT EPISODE. LINENES CHANGED. ASSESSMENT DONE. LUNGS SOUNDS CLEAR TO DEMINISHED. EDEMA UNCHANGED. PT REPORTS 10/10 PAIN IN LEFT LEG. SEE MAR FOR MEDICAITON GIVEN. PT EATING DINNER AND WATCHING TV, NO ADDIITONAL REQUESTS OR COMPLAINTS. CALL LIGHT WITHIN REACH.
--- NOTE | 2019-05-10 17:50 | NUR ---
PATIENT TRANSFERED FROM CHAIR TO BED, 2PA PIVOT. PATIENT HAD INCONT EPISODE, JITENDRA CARE DONE NEW ATTENDS IN PLACE. CALL LIGHT IN REACH. NO FURTHER NEEDS AT THIS TIME.
--- NOTE | 2019-05-10 18:20 | NUR ---
PT HERE FOR CELLULITIS, UTI AND RABODMYOLYSIS. IV FLUIDS DC'D THIS SHIFT. NO IV IN PLACE. PT TOERATING 60 G CARB DIET WITH GOOD INTAKE. BLOOD SUGAR CHECKS WITH SLIDING SCALE INSULIN. PT UP TO AMBUATE WITH PHYSICAL THERAPY THIS SHIFT AND UP TO CHAIR FOR DINNER. INCONTINANCE NOTED AT TIMES. VOIDING QUANTITY SUFFICIENT. PT USES CALL LIGHT APPROPRIATLY.
--- NOTE | 2019-05-10 18:24 | NUR ---
PT RESTING WITH EYES CLOSED BACK IN BED. RR = 18. BED RAILSUP. CALL LIGHT WITHIN REACH.
--- NOTE | 2019-05-10 19:24 | NUR ---
RECEIVED REPORT FROM N[facility]STOR POST. PT SELVIN, WAS AMBULATED IN A [facility] WAY WITH PT TODAY. PT SITTING ON THE EDGE OF THE BED. ALERT, ORIENTED. WILL BE BACK TO ASSESS.
--- NOTE | 2019-05-10 19:39 | NUR ---
OK Alert, oriented, cooperative with cares. bg 181, insulin needed per sliding scale. done with assessment. pt is sitting up. bed in low position, call light in reach. education about safety reinforced.
--- NOTE | 2019-05-10 20:00 | NUR ---
REPOSITIONED PT IN BED WITH HELP OF DEVYN PALM. WARM BLANKET PROVIDED AND PT DENIES FURTHER NEEDS. CALL LIGHT IS CLOSE.
--- NOTE | 2019-05-10 21:18 | NUR ---
PT SITTING UP AT THE EDGE OF THE BED. NO DISTRESS NOTED. CALLS APPROPRIATELY, CALL LIGHT IN REACH, BED IN LOW POSITION. NO NEEDS AT THE MOMENT.
--- NOTE | 2019-05-10 22:59 | NUR ---
PT CALLS APPROPRIATE. USED URINAL. VOIDED 400 ML OF YELLOW URINE. BACK TO BED. CALL LIGHT IN REACH. BED IN LOW POSITION.
--- NOTE | 2019-05-10 23:53 | NUR ---
call light answered. pt called to use urinal. voided.
--- NOTE | 2019-05-11 02:49 | NUR ---
pt alert and talkative this night. oriented. sitting up at the adge of the bed, talked to this nurse about his plan to call ""[facility] to find placce to live decent".
--- NOTE | 2019-05-11 04:53 | NUR ---
PT ALERT, ORIENTED. CALLED APPROPRIATE THIS SHIFT. ASKED FOR HELP WITH URINAL. VSS. LUNG SOUND CLEAR/DIMINISHED AT THE BASES BILATERAL. MAINTENED SPO2 92-93% ON RA. STATED HE IS GOING TO CALL "[facility] TO HELP HIM FIND THE PLCE WHERE I CAN DECENT LIVE". PT DID NOT REPORT ANY PAIN OR DISCOMFORT DURING THIS SHIFT. BASE LINE NEUROPATHY. LOW EXTREMITY'S REDNESS DECREASED, LESS EDEMA NOTED. ABRASIONS COVERED WITH SCUBS AND HEALING.
--- NOTE | 2019-05-11 06:07 | NUR ---
PT IS UP IN BED. THIS NURSE INCOURAGED MORNING ROUTINE AND HELPED WITH ADL. PT TOOK HIS SCHEDULED MEDICATION WHOLE WITH WATER. DRINKING COFFEE. IN A GOOD MOOD. ALERT, ORIENTED, FOLLOW COMMANDS, POLITE AND COOPERATIVE. VS WNL.
--- NOTE | 2019-05-11 06:32 | NUR ---
pt called to help with urinal. he is able to use urinal just with little guading, voided 350 ml of light yellow urine. bed in low position, call light in reach.
--- NOTE | 2019-05-11 07:42 | NUR ---
0715: Report recieved from Leelee PALM. Pt resting at the bedside with no compalints at this time. Call rust within reach.
--- NOTE | 2019-05-11 09:00 | NUR ---
Called and spokew with Les from [facility] as I did not get a return call yesterday. Jose requests a chart to be faxed and states they have in the past reviewed Billy for admission. He will see pt today for possible placement to his facility. H&P,progress notes, and face sheet faxed to [facility].
--- NOTE | 2019-05-11 09:20 | NUR ---
Updated Billy I spoke with Jose from [facility] and he plans to visit him today for possible placement. I also discussed calling [facility] in [place]. Billy refuses placement to any of the [facility] facilities.
--- NOTE | 2019-05-11 09:39 | NUR ---
Pt resting in his bed and denies any new problems at this time.
[2019-05-11] MEDS ORDERED: LEVOFLOXACIN750 MG PO (09:55)
--- NOTE | 2019-05-11 10:01 | NUR ---
PT CONTINUES RESTING IN HIS BED WITH NO COMPLAINTS AT THIS TIME.
--- NOTE | 2019-05-11 10:55 | NUR ---
I spoke with the pt regarding him stating prior to prior shifts about him harming himself. He states to me that he does not have any plans or desires to harm himself. [facility] had been notifed and they are to come see the pt prior to discharge.
--- NOTE | 2019-05-11 11:20 | NUR ---
[facility] in to see patient for follow up as he made statements of thoughts of suicide. Per [facility] pt is not suicidal and is cleared for dc. See written notes in chart.
--- NOTE | 2019-05-11 11:21 | NUR ---
Arianna from [facility] arrived and are now in the room speaking with the pt.
--- NOTE | 2019-05-11 11:50 | NUR ---
Pt was cleared by Kartik Nunez from [facility] for discarge.
--- NOTE | 2019-05-11 12:18 | NUR ---
Pt speaking with pastor Mendez at this time.
--- NOTE | 2019-05-11 12:39 | NUR ---
Pharmacy to fill RX for Levofloxacin 750mg x 2 doses, to begin tomorrow, to help assure continuity of care for patient. This will complete his therapy
--- NOTE | 2019-05-11 12:40 | NUR ---
Called and spoke with Jose. Updated I will be in a meeting this afternoon. He states he has not been able to see Billy due to prior commitments. He will see him this afternoon. Updated I will call after 3 when meeting is completed.
--- NOTE | 2019-05-11 13:42 | NUR ---
PT RESTING AT HIS BEDSIDE AND HE DENIES ANY PAIN OR PROBLEMS. HE IS WAITING TO BE SEEN BY SOMEONE REGARDING POSSIBLE PLACEMENT TODAY. HE STATES THE HE "HOPES" TO BE PLACED THERE. PT HAS ALREADY BEEN CLEARED BY [facility]. SEE ASSESSMENT.
--- NOTE | 2019-05-11 13:58 | NUR ---
DR CONWAY REQUESTED I SPEND TIME HELPING PT MAKE DECISIONS FOR HIS FUTURE CARE. PT INTERESTED IN DISCUSSION. ASKED ABOUT OPTIONS, SHARED WITH HIM THE DIFFERENCES. PT AGREED TO FILE OUT POLST, LISTED HIS PREFERENCE AND SIGNED. I INFORMED HIM THAT THIS WILL BE IN HIS MEDICAL RECORD HERE AND IF HE HAS TO TO BE ADMITTED AGAIN AND IS UNABLE TO SPEAK FOR HIMSELF-WE KNOW HIS PREFERENCE GAVE POLST TO DR CONWAY TO SIGN. PT REQUESTED PRAYER AND SAID HE KNOWS HE WILL BE WITH HIS HEAVENLY FATHER WHEN THIS LIFE ENDS.
--- NOTE | 2019-05-11 15:26 | NUR ---
DISCHARGE INSTRUCTIONS GIVEN TO THE PT WHICH HE STATES UNDERSTANDING. PT DENIES ANY NEW PROBLEMS AT THIS TIME.
--- NOTE | 2019-05-11 15:35 | NUR ---
Notified by RN, Jose visited with Billy. He is going to speak with his staff about placement. Called to speak with Jose, but he is with someone, left message requesting return call.
--- NOTE | 2019-05-11 16:00 | NUR ---
Spoke with Nori Mcclure and Dr. Fuchs. There is a possibility [facility] may take this patient. I have not received a return call from [facility] at this point. Discussed pt staying tonight until I can confirm they will or will not take this pt. Will keep overnight until confirmed on way or the other. Pt has 6 ER visits and 1 IP admission in less than two weeks. Hopefully [facility] will take this patient and help him to manage his health.
--- NOTE | 2019-05-11 17:27 | NUR ---
PT DENIES ANY SOB OR PAIN OR ANY NEW PROBLEMS AT THIS TIME. CALL MORRISON WITHIN REACH.
--- NOTE | 2019-05-11 19:05 | NUR ---
RECEIVED REPORT FROM DAY RN.
--- NOTE | 2019-05-11 19:09 | NUR ---
A few hours ago I was instructed by Savannah PALM the senior production planner not to discharge the pt as she is still awaiting to hear back from a local assisted living facility in regards to placement. Savannah states that Dr Fuchs was notified of this and that this is acceptable.
--- NOTE | 2019-05-11 22:50 | NUR ---
IN ROOM TO ASSESS PT, AND ADMINISTER TYELONOL FOR HEADACHE AND LEG PAIN. ASSISTED PT TO USE THE URINAL AND HELPED HIM REPOSITION IN BED. PT DENIES FURTHER NEEDS AT THIS TIME. CALL LIGHT IS CLOSE.
--- NOTE | 2019-05-11 22:59 | NUR ---
PT CALLED WANTING ASSISTANCE SITTING UP. HE SAYS HE FEELS A LITTLE SOB LAYING DOWN. HE WAS AT 89% ON RA. PT IS NOW SITTING AT EDGE OF BED WITH 2 LNC ON AND IS AT 93%. HE DENIES FURTHER NEEDS AT THIS TIME, CALL LIGHT IS CLOSE.
--- NOTE | 2019-05-11 23:47 | NUR ---
ASSISTED PT TO LAY DOWN IN BED. HE DENIES SOB AND IS BACK ON RA WITH O2 SAT WNL. CALL LIGHT IS CLOSE AND PT DENIES FURTHER NEEDS.
--- NOTE | 2019-05-12 00:10 | NUR ---
VERBAL REPORT RECEIVED FROM GAS MAIN FITTER HELPERNÉSTOR KESSLER. ALL QUESTIONS ANSWERED, PT RESTING IN BED. RESPIRATIONS EVEN AND UNLABORED. NO DISTRESS NOTED, BOARD UPDATED. CALL LIGHT IN REACH.
--- NOTE | 2019-05-12 01:35 | NUR ---
THIS RN IN ROOM TO ANSWER CALL LIGHT. PT ASSISTED TO THE SITTING POSITION ON EDGE OF BED. ORIENTED TO SELF AND PLACE. REORIENTED TO DATE, TIME, AND EVENTS. PT DENIES PAIN AND NAUSEA, NO DISTRESS NOTED. 350MLS UO NOTED, PT BACK IN BED AND RESTING. NO FURTHER NEEDS, CALL LIGHT IN REACH.
--- NOTE | 2019-05-12 03:14 | NUR ---
ASSISTED PT TO REPOSITION IN BED. HE DENIES FURTHER NEEDS AT THIS TIME. CALL LIGHT IS CLOSE.
--- NOTE | 2019-05-12 03:43 | NUR ---
PT RESTING IN BED WITH EYES CLOSED. RR EVEN AND UNLABORED, NO DISTRESS NOTED. CALL LIGHT IN REACH.
--- NOTE | 2019-05-12 05:48 | NUR ---
LINEN CHANGE COMPLETED AFTER PT VOIDED VIA URINAL. VSS, PT DENIES PAIN OR NAUSEA, SCHEDULED PO ABX ADMINISTERED (SEE EMAR). NO FURTHER NEEDS VERBALIZED AT THIS TIME, CALL LIGHT IN REACH. LAB IN ROOM, CALL LIGHT IN REACH.
--- NOTE | 2019-05-12 05:52 | NUR ---
PT HAD UNEVENTFUL NIGHT, SLEPT ON AND OFF. USED CALL LIGHT APPROPERIATELY. FORGETFUL, BUT REORIENTS EASILY. VSS, NO IV ACCESS. PAIN CONTROLLED WITH PRN TYLENOL. 60 G CARB DIET, SECONDARY DIET 2G SODIUM, TOLERATING WELL, NO NAUSEA REPORTED. SCHEDULED ACCUCHECKS, INSULIN SS. 2PA WITH FWW STAND PIVOT. VOIDING QS, NO BM THIS SHIFT.
--- NOTE | 2019-05-12 08:37 | NUR ---
PROVIDED TOOTHBRUSH AND TOOTHPASTE TO PATIENT. HE IS BRUSHING TEETH INDEPENDENTLY NOW. WAS ABLE TO STAND AND SIDE STEP TO TOP OF THE BED WITH FWW. TOLERATED WELL.
--- NOTE | 2019-05-12 09:40 | NUR ---
Called and left message for Les, requested he call when available.
--- NOTE | 2019-05-12 11:00 | NUR ---
Spoke with Les. He plans on returning to speak with pt today and bringing two staff members. States they must all agree prior to confirmation Billy can be admitted due to his past history. Asked if he could visit sooner than later, pt. has declined placement at other facilities and I will need to dc today. I would rather dc in the daylight hours as pt is homeless and bus and taxi service no longer will transport due to past behavior during transports.
--- NOTE | 2019-05-12 11:22 | NUR ---
PT SLEEPING COMFORTABLY, IS TO DC TODAY. WILL CHECK BACK
--- NOTE | 2019-05-12 13:05 | NUR ---
linens changed d/t urine on draw sheet. had patient stand and transfer to chair with fww. transferred back to bed. lying on right side with side rails of right side of bed up. belongings in reach. no other needs at this time. unsure of discharge plan at this time.
--- NOTE | 2019-05-12 13:53 | NUR ---
PT SITTING ON SIDE OF BED, WAITING FOR [facility] TO COME FOR INTERVIEW. PT MENTIONED THAT HE WOULD LIKE TO HAVE A HOME, PT REQUESTED I PRAY FOR HIM ABOUT THIS. HE THANKED ME AND TOLD ME THAT HE KNOWS GOD HEARD. GAVE AFFIRMATION
--- NOTE | 2019-05-12 14:41 | NUR ---
[facility] VISITING WITH PATIENT NOW.
--- NOTE | 2019-05-12 16:24 | NUR ---
Recieved call from Les at [facility]. He states he is unable to admit pt to their facility. He and pt had long discussion of requirements for pt to admit to their facility. Pt continued to blame the last facilities for his eviction and exposed himself to one of the female staff who visited with Les. They are unable to take this patient at this time. Pt will be discharged by [facility] as he is homeless.
[2019-05-13] MEDS ORDERED: NAPROXEN500 MG PO (22:35)
== END 2019-05-12 15:30 | disposition home or self-care (01) | DRG 565 ==
LOC: ED 18:16 → MS 19:51
PROVIDERS: ADMIT Internal Medicine
DX: T79.6XXA Traumatic ischemia of muscle, initial encounter (principal); N39.0 Urinary tract infection, site not specified; L03.116 Cellulitis of left lower limb; L03.115 Cellulitis of right lower limb; I13.0 Hypertensive heart and chronic kidney disease with heart failure and stage 1 through stage 4 chronic kidney disease, or unspecified chronic kidney disease; N18.4 Chronic kidney disease, stage 4 (severe); W19.XXXA Unspecified fall, initial encounter; B95.61 Methicillin susceptible Staphylococcus aureus infection as the cause of diseases classified elsewhere; R29.6 Repeated falls; E11.22 Type 2 diabetes mellitus with diabetic chronic kidney disease; I50.9 Heart failure, unspecified; I25.10 Atherosclerotic heart disease of native coronary artery without angina pectoris; Z23 Encounter for immunization; I25.2 Old myocardial infarction; Z79.899 Other long term (current) drug therapy; Z86.73 Personal history of transient ischemic attack (TIA), and cerebral infarction without residual deficits; Z87.891 Personal history of nicotine dependence; Z88.0 Allergy status to penicillin; Z88.5 Allergy status to narcotic agent; Z88.8 Allergy status to other drugs, medicaments and biological substances; Z59.0 Homelessness; Z91.14 Patient's other noncompliance with medication regimen
CPT/HCPCS: 36415; 80053; 80202; 82140; 82550; 83735; 84100; 85025; 85610; 90715; 93970; 94760; 97110; 97116; 97163; 97165; 97530; 97535; 99285; J1650; J1815; J1956; J3370; J7030; J7060

== ENCOUNTER 2019-05-13 21:53 | Emergency (ER) | payer MEDICARE, OTHER ==
[~2019-05-13] VITALS: Ht 175.3 cm; Wt 164.9 kg
[~2019-05-13 21:53] MED LIST changes: +GLIPIZIDE ER10 MG PO; +LEVOFLOXACIN750 MG PO; +VITAMIN D31250 MC1 PO
--- OUTSIDE RECORDS SUMMARY | 2019-05-13 21:56 | XMS ---
PreManage Notification: SERGIO ROA Security Assistance Specialist Events No recent Security Events currently on file CRITERIA MET - Group Notification - [facility] - 2 Visits in 30 Days CARE PROVIDERS Marcia Kent Fourdrinier Tender/Irrigating Pump Operator 01/16/2019-Current PHONE: [phone] Yordy Looney [facility] 03/26/2018-Current PHONE: [phone] PRANAV WIGGINS Internal Medicine 09/09/2017-Current PHONE: Unknown Marcia Kent [facility] 01/16/2019-Current PHONE: [phone] YADIRA SERRA Primary Care Current PHONE: [phone] Pranav Wiggins [facility] Current PHONE: [phone] nAgel has no Care Guidelines for this patient. Care History Medical/Surgical 05/04/2019 [facility] - THIS PATIENT IS WELL KNOWN TO THE CASE MANAGEMENT STAFF. - PATIENT HAS BEEN PROVIDED HELP WITH HOUSING MULTIPLE TIMES. - PATIENT CHOOSES TO LEAVE GROUP HOMES AND OR FACILITIES ON HIS OWN. 10/12/2017 [facility] - PATIENT IS NOT WILLING TO ACCEPT HELP IN REGARDS TO LONG-TERM LIVING ARRANGEMENTS. - PATIENT IS CURRENTLY WORKING WITH [facility] [phone]. - CHWS/CASE MANAGEMENT WILL NOT CONTINUE TO WORK WITH PATIENT DUE TO PATIENT TURNING DOWN ALL HELP/SERVICES THAT CAN HELP THE PATIENT. 07/06/2017 [facility] - Patient is currently on parole. [place] office contact Monica . - Patient was living in a hermiston at a care facility. Per CHW at [facility] patient did not like the rules and was non compliant at the care facility. - PLEASE REFER PATIENT TO CLINIC FOR NON EMERGENT VISITS. PATIENT PCP IS DR WIGGINS. - Patient is currently established with [facility]. If patient is seen in the ED during business hours. Please contact CHWs at [facility] at [phone] [phone]. Care Recommendation: This patient has had 5 or more Emergency Department visits in the last 12 months. Patient requires education on the scope and purpose of the ED as an acute care provider not a Primary Care Provider and should not be utilized for chronic conditions. If patient returns to ED please contact Community Health WorkerElise at [phone]. These are guidelines and the provider should exercise clinical judgment when providing care. E.D. VISIT COUNT (12 MO.) 5 [facility]. TOTAL 5 NOTE: Visits indicate total known visits. ED/C VISIT TRACKING (12 MO.) 05/13/2019 21:53 [facility] [facility] [place] TYPE: Emergency COMPLAINT: - FALL 05/07/2019 18:17 [facility] [place] TYPE: Emergency COMPLAINT: - LEG FAILURE 05/06/2019 06:48 [facility] [facility] [place] TYPE: Emergency COMPLAINT: - FALL DIAGNOSES: - Altered mental status, unspecified - Allergy status to penicillin - Heart failure, unspecified - Personal history of nicotine dependence - Allergy status to narcotic agent status - Hypertensive heart disease with heart failure - Type 2 diabetes mellitus without complications - Other [place] [facility] [place]current[facility] drug therapy - Altered mental status, unspecified 05/05/2019 03:41 [facility] [facility] [place] TYPE: Emergency COMPLAINT: - FALL DIAGNOSES: - Strain of muscle, fascia and tendon of right hip, initial enc - Pain in right hip - Allergy status to other drugs, medicaments and biological sub - Contusion of left knee, initial encounter - Type 2 diabetes mellitus without complications - Strain of muscle, fascia and tendon of left hip, initial enco - Hypertensive heart disease with heart failure - Personal history of transient ischemic attack (TIA), and cere - Allergy status to narcotic agent status - Other [place] [facility] [place]current) drug therapy - Exposure to other specified factors, initial encounter - Personal history of nicotine dependence - Allergy status to penicillin - Heart failure, unspecified 05/03/2019 18:56 [place] [facility] [place] TYPE: Emergency COMPLAINT: - MULTIPLE COMPLAINTS DIAGNOSES: - Type 2 diabetes mellitus without complications - Hypertensive heart disease with heart failure - Exposure to other specified factors, initial encounter - Allergy status to penicillin - Other manager intermediate (current) drug therapy - Personal history of nicotine dependence - Heart failure, unspecified - Cervicalgia - Contusion of other part of head, initial encounter - Unspecified sprain of left wrist, initial encounter - Strain of muscle, fascia and tendon at neck level, initial en INPATIENT VISIT TRACKING (12 MO.) 05/07/2019 19:51 [place] [facility] [place] TYPE: Medical Surgical COMPLAINT: - CELLULITIS, UTI, RHABDOMYOLYSIS DIAGNOSES: - Methicillin susceptible Staphylococcus aureus infection as th - Chronic kidney disease, stage 4 (severe) - Repeated falls - Cellulitis of right lower limb - Chronic kidney disease, stage 4 (severe) - Hypertensive heart and chronic kidney disease with heart fail - Type 2 diabetes mellitus with diabetic chronic kidney disease - Cellulitis of right lower limb - Personal history of transient ischemic attack (TIA), and cere - Personal history of nicotine dependence - Urinary tract infection, site not specified - Type 2 diabetes mellitus with diabetic chronic kidney disease - Cellulitis of left lower limb - Allergy status to narcotic agent status - Heart failure, unspecified - Unspecified fall, initial encounter - Other [place] [facility] [place]current[place] drug therapy - Personal history of transient ischemic attack (TIA), and cere - Personal history of nicotine dependence - Allergy status to narcotic agent status - Cellulitis of left lower limb - Unspecified fall, initial encounter - Hypertensive heart and chronic kidney disease with heart fail - Methicillin susceptible Staphylococcus aureus infection as th - Allergy status to other drugs, medicaments and biological sub - Allergy status to penicillin - Homelessness - Other manager intermediate (current) drug therapy - Encounter for immunization - Atherosclerotic heart disease of [place] coronary artery witho - Allergy status to other drugs, medicaments and biological sub - Old myocardial infarction - Patient's other noncompliance with medication regimen - Allergy status to penicillin - Traumatic ischemia of muscle, initial encounter - Old myocardial infarction - Urinary tract infection, site not specified - Repeated falls - Patient's other noncompliance with medication regimen - Atherosclerotic heart disease of [place] coronary artery witho - Heart failure, unspecified - Homelessness - Encounter for immunization [email or web address]
[2019-05-13] MEDS ORDERED: NAPROXEN500 MG PO (22:35)
== END 2019-05-13 23:05 | disposition home or self-care (01) ==
LOC: ED 21:53
DX: S80.02XA Contusion of left knee, initial encounter (principal); E11.9 Type 2 diabetes mellitus without complications; I11.0 Hypertensive heart disease with heart failure; I50.9 Heart failure, unspecified; Z86.73 Personal history of transient ischemic attack (TIA), and cerebral infarction without residual deficits; Z87.891 Personal history of nicotine dependence; Z88.0 Allergy status to penicillin; Z88.5 Allergy status to narcotic agent; Z88.8 Allergy status to other drugs, medicaments and biological substances; W01.0XXA Fall on same level from slipping, tripping and stumbling without subsequent striking against object, initial encounter
CPT/HCPCS: 73560; 99283-25

== ENCOUNTER 2019-05-16 15:52 | Emergency (ER) | payer MEDICARE, OTHER ==
[~2019-05-16] VITALS: Ht 175.3 cm; Wt 164.9 kg
[~2019-05-16 15:52] MED LIST changes: +NAPROXEN500 MG PO
--- OUTSIDE RECORDS SUMMARY | 2019-05-16 15:54 | XMS ---
PreManage Notification: SERGIO ROA Security Cp Bleacher Operator Events No recent Security Events currently on file CRITERIA MET - Group Notification - 6 ED Visits in 6 Months - [facility] - 2 Visits in 30 Days CARE PROVIDERS Marcia Kent Residential Fee Appraiser/Agricultural Loan Officer 01/16/2019-Current PHONE: [phone] Yordy Looney [facility] 03/26/2018-Current PHONE: [phone] PRANAV WIGGINS Internal Medicine 09/09/2017-Current PHONE: Unknown Marcia Kent Primary Care 01/16/2019-Current PHONE: [phone] MARYSE MAY Primary Care Current PHONE: Unknown Pranav Wiggins [facility] Current PHONE: [phone] Angel has no Care Guidelines for this patient. Care History Medical/Surgical 05/04/2019 [facility] - THIS PATIENT IS WELL KNOWN TO THE CASE MANAGEMENT STAFF. - PATIENT HAS BEEN PROVIDED HELP WITH HOUSING MULTIPLE TIMES. - PATIENT CHOOSES TO LEAVE GROUP HOMES AND OR FACILITIES ON HIS OWN. 10/12/2017 [facility] - PATIENT IS NOT WILLING TO ACCEPT HELP IN REGARDS TO OUTBOUND TELEMARKETER LIVING ARRANGEMENTS. - PATIENT IS CURRENTLY WORKING WITH [facility] AT [facility] [phone]. - CHWS/CASE MANAGEMENT WILL NOT CONTINUE TO WORK WITH PATIENT DUE TO PATIENT TURNING DOWN ALL HELP/SERVICES THAT CAN HELP THE PATIENT. 07/06/2017 [facility] - Patient is currently on parole. [place] office contact Monica . - Patient was living in a hermiston at a care facility. Per CHW at [facility] patient did not like the rules and was non compliant at the care facility. - PLEASE REFER PATIENT TO CLINIC FOR NON EMERGENT VISITS. PATIENT PCP IS DR WIGGINS. - Patient is currently established with [facility]. If patient is seen in the ED during business hours. Please contact CHWs at [facility] at [phone]. Care Recommendation: This patient has had 5 or more Emergency Department visits in the last 12 months. Patient requires education on the scope and purpose of the ED as an acute care provider not a Primary Care Provider and should not be utilized for chronic conditions. If patient returns to ED please contact Community Health WorkerElise at [phone]. These are guidelines and the provider should exercise clinical judgment when providing care. E.D. VISIT COUNT (12 MO.) 6 [facility]. TOTAL 6 NOTE: Visits indicate total known visits. ED/C VISIT TRACKING (12 MO.) 05/16/2019 15:[address] [facility] [place] TYPE: Emergency COMPLAINT: - LEG PAIN 05/13/2019 21:[address] [facility] [place] TYPE: Emergency COMPLAINT: - FALL 05/07/2019 18:[address] [facility] [place]: Emergency COMPLAINT: - LEG FAILURE 05/06/2019 06:[address] [facility] [place] TYPE: Emergency COMPLAINT: - FALL DIAGNOSES: - Altered mental status, unspecified - Allergy status to penicillin - Heart failure, unspecified - Personal history of nicotine dependence - Allergy status to narcotic agent status - Hypertensive heart disease with heart failure - Type 2 diabetes mellitus without complications - Other superintendent container terminal (current) drug therapy - Altered mental status, [...] status to narcotic agent status - Other nursing home (current) drug therapy - Exposure to other [...] Allergy status to penicillin - Other superintendent container terminal (current) drug therapy - Personal history [...] - Unspecified fall, initial encounter - Other superintendent container terminal (current) drug therapy - Personal history [...] status to penicillin - Homelessness - Other superintendent container terminal (current) drug therapy - Encounter for immunization - Atherosclerotic heart disease of [place] coronary artery witho - Allergy status to other drugs, medicaments and biological sub - Old myocardial infarction - Patient's other noncompliance with medication regimen - Allergy status to penicillin - Traumatic ischemia of muscle, initial encounter - Old myocardial infarction - Urinary tract infection, site not specified - Repeated falls - Patient's other noncompliance with medication regimen - Atherosclerotic heart disease of [place] coronary artery witho - Heart failure, unspecified - Homelessness - Encounter for immunization [email or web address]
== END 2019-05-16 16:50 | disposition home or self-care (01) ==
LOC: ED 15:52
DX: T69.022A Immersion foot, left foot, initial encounter (principal); T69.021A Immersion foot, right foot, initial encounter; M79.604 Pain in right leg; E11.9 Type 2 diabetes mellitus without complications; I11.0 Hypertensive heart disease with heart failure; I50.9 Heart failure, unspecified; Z87.891 Personal history of nicotine dependence; Z88.0 Allergy status to penicillin; Z88.5 Allergy status to narcotic agent
CPT/HCPCS: 99283

== ENCOUNTER 2019-05-17 10:58 | Emergency (ER) | payer MEDICARE, OTHER ==
[~2019-05-17] VITALS: Ht 175.3 cm; Wt 154.3 kg
--- OUTSIDE RECORDS SUMMARY | 2019-05-17 11:02 | XMS ---
PreManage Notification: SERGIO ROA Security Pulper Events No recent Security Events currently on file CRITERIA MET - Group Notification - 6 ED Visits in 6 Months - [facility] - 2 Visits in 30 Days CARE PROVIDERS Marcia Kent Home Restoration Service Cleaner/Human Resource Manager 01/16/2019-Current PHONE: [phone] Yordy Looney [facility] 03/26/2018-Current PHONE: [phone] PRANAV WIGGINS Internal Medicine 09/09/2017-Current PHONE: Unknown Marcia Kent Primary Care 01/16/2019-Current PHONE: [phone] MARYSE MAY Primary Care Current PHONE: Unknown Pranav Wiggins [facility] Current PHONE: [phone] Angel has no Care Guidelines for this patient. Care History Medical/Surgical 05/04/2019 [facility] - THIS PATIENT IS WELL KNOWN TO THE CASE MANAGEMENT STAFF. - PATIENT HAS BEEN PROVIDED HELP WITH HOUSING MULTIPLE TIMES. - PATIENT CHOOSES TO LEAVE GROUP HOMES AND OR FACILITIES ON HIS OWN. 10/12/2017 [facility] - PATIENT IS NOT WILLING TO ACCEPT HELP IN REGARDS TO [employer] SALESPERSON LIVING ARRANGEMENTS. - PATIENT IS CURRENTLY WORKING WITH GARETT AT [facility] [phone]. - CHWS/CASE MANAGEMENT WILL NOT CONTINUE TO WORK WITH PATIENT DUE TO PATIENT TURNING DOWN ALL HELP/SERVICES THAT CAN HELP THE PATIENT. 07/06/2017 [facility] - Patient is currently on parole. [place] office contact Monica . - Patient was living in a [place] at a care facility. Per CHW at [facility] patient did not like the rules and was non compliant at the care facility. - PLEASE REFER PATIENT TO CLINIC FOR NON EMERGENT VISITS. PATIENT PCP IS DR WIGGINS. - Patient is currently established with [facility]. If patient is seen in the ED during business hours. Please contact CHWs at [facility] at [place] [phone]. Care Recommendation: This patient has had 5 or more Emergency Department visits in the last 12 months. Patient requires education on the scope and purpose of the ED as an acute care provider not a Primary Care Provider and should not be utilized for chronic conditions. If patient returns to ED please contact Community Health WorkerElise at [phone]. These are guidelines and the provider should exercise clinical judgment when providing care. E.D. VISIT COUNT (12 MO.) 7 [facility]. TOTAL 7 NOTE: Visits indicate total known visits. ED/C VISIT TRACKING (12 MO.) 05/17/2019 10:59 [facility] TYPE: Emergency COMPLAINT: - MEDICAL CLEARANCE 05/16/2019 15:52 [facility] TYPE: Emergency COMPLAINT: - LEG PAIN/ NON INJURY 05/13/2019 21:53 [facility] TYPE: Emergency COMPLAINT: - FALL DIAGNOSES: - Pain in left knee - Contusion of left knee, initial encounter - Fall on same level from slipping, tripping and stumbling with - Hypertensive heart disease with heart failure - Type 2 diabetes mellitus without complications - Heart failure, unspecified - Personal history of nicotine dependence - Personal history of transient ischemic attack (TIA), and cere - Allergy status to penicillin - Allergy status to narcotic agent status - Allergy status to other drugs, medicaments and biological sub 05/07/2019 18:17 [facility] TYPE: Emergency [...] 2 diabetes mellitus without complications - Other halfway (current) drug therapy - Altered mental status, [...] status to narcotic agent status - Other terminologist (current) drug therapy - Exposure to other [...] - Allergy status to penicillin - Other terminologist (current) drug therapy - Personal history of nicotine dependence - Heart failure, unspecified - Cervicalgia - Contusion of other part of head, initial encounter - Unspecified sprain of left wrist, initial encounter - Strain of muscle, fascia and tendon at neck level, initial en INPATIENT VISIT TRACKING (12 MO.) 05/07/2019 19:[address] [facility] [place] TYPE: Medical Surgical COMPLAINT: - CELLULITIS, [...] - Unspecified fall, initial encounter - Other terminologist (current) drug therapy - Personal history of [...] status to penicillin - Homelessness - Other halfway (current) drug therapy - Encounter for immunization - Atherosclerotic heart disease of [place] coronary artery witho - Allergy status to other drugs, medicaments and biological sub - Old myocardial infarction - Patient's other noncompliance with medication regimen - Allergy status to penicillin - Traumatic ischemia of muscle, initial encounter - Old myocardial infarction - Urinary tract infection, site not specified - Repeated falls - Patient's other noncompliance with medication regimen - Atherosclerotic heart disease of [place] coronary artery witho - Heart failure, unspecified - Homelessness - Encounter for immunization [email or web address]
== END 2019-05-17 13:14 | disposition home or self-care (01) ==
LOC: ED 10:58
DX: E66.9 Obesity, unspecified (principal); R53.1 Weakness; E11.9 Type 2 diabetes mellitus without complications; I11.0 Hypertensive heart disease with heart failure; I50.9 Heart failure, unspecified; Z87.891 Personal history of nicotine dependence; Z88.0 Allergy status to penicillin; Z88.5 Allergy status to narcotic agent
CPT/HCPCS: 99283

== ENCOUNTER 2019-06-09 14:58 | Emergency (ER) | payer MEDICARE, OTHER ==
[~2019-06-09] VITALS: Ht 175.3 cm; Wt 154.3 kg
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
[2019-06-09] MEDS ORDERED: POTASSIUM CHLO10 ME2 PO (15:05)
[2019-06-09] MEDS ORDERED: FUROSEMIDE20 MG PO (15:05)
[2019-06-09] MEDS ORDERED: GLIPIZIDE ER10 MG PO (15:05)
[2019-06-09] MEDS ORDERED: LASIX40 MG PO (16:55)
== END 2019-06-09 18:13 | disposition home or self-care (01) ==
LOC: ED 14:58
DX: N50.89 Other specified disorders of the male genital organs (principal); E11.9 Type 2 diabetes mellitus without complications; I11.0 Hypertensive heart disease with heart failure; I50.9 Heart failure, unspecified; Z87.891 Personal history of nicotine dependence; Z88.0 Allergy status to penicillin; Z88.5 Allergy status to narcotic agent; Z79.899 Other long term (current) drug therapy
CPT/HCPCS: 76870; 96374; 99284-25; J1940

== ENCOUNTER 2019-06-12 17:12 | Observation (INO) | payer MEDICARE, OTHER ==
[~2019-06-12] VITALS: Ht 175.3 cm; Wt 164.7 kg
[~2019-06-12 17:12] MED LIST changes: +FUROSEMIDE20 MG PO; +POTASSIUM CHLO10 ME2 PO
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
--- NOTE | 2019-06-12 20:46 | EKG ---
[facility] [address] [place] [address] Signed Normal sinus rhythm Left axis deviation Low voltage QRS Inferior infarct (cited on or before 03-AUG-2017) Anterior infarct , similar to previous EKGs Abnormal ECG When compared with ECG of 06-MAY-2019 09:33, QRS duration has decreased Confirmed by JONATHAN PENA MD ([id number]) on 06/12/2019 8:46:41 PM Electronically Signed By: JONATHAN PENA MD 06/12/19 2046 PATIENT NAME: SERGIO ROA Electrocardiogram DATE OF : 42 PHYSICIAN: JONATHAN PENA MD REPORT #: [id number] REPORT IS CONFIDENTIAL AND NOT TO BE RELEASED WITHOUT AUTHORIZATION
--- NOTE | 2019-06-13 11:26 | EKG ---
[facility] [address] [place] [address] Signed Normal sinus rhythm Low voltage QRS Inferior infarct (cited on or before 03-AUG-2017) Abnormal ECG When compared with ECG of 12-JUN-2019 17:44, No significant change was found . Confirmed by JONATHAN PENA MD ([id number]) on 06/13/2019 11:26:13 AM Electronically Signed By: JONATHAN PENA MD 06/13/19 1126 PATIENT NAME: SERGIO ROA JORDYN Electrocardiogram DATE OF : 42 PHYSICIAN: JONATHAN PENA MD REPORT #: [id number] REPORT IS CONFIDENTIAL AND NOT TO BE RELEASED WITHOUT AUTHORIZATION
[2019-06-13] MEDS ORDERED: VITAMIN D31250 MC1 PO (12:42)
== END 2019-06-13 15:53 | disposition short-term general hospital (02) ==
LOC: ED 17:12 → MS 17:14
PROVIDERS: ADMIT Internal Medicine
DX: N49.2 Inflammatory disorders of scrotum (principal); I13.0 Hypertensive heart and chronic kidney disease with heart failure and stage 1 through stage 4 chronic kidney disease, or unspecified chronic kidney disease; I50.9 Heart failure, unspecified; E11.22 Type 2 diabetes mellitus with diabetic chronic kidney disease; N18.3 Chronic kidney disease, stage 3 (moderate); I25.10 Atherosclerotic heart disease of native coronary artery without angina pectoris; I25.2 Old myocardial infarction; E66.01 Morbid (severe) obesity due to excess calories; Z87.891 Personal history of nicotine dependence; Z91.14 Patient's other noncompliance with medication regimen; Z86.73 Personal history of transient ischemic attack (TIA), and cerebral infarction without residual deficits; Z99.3 Dependence on wheelchair; Z88.0 Allergy status to penicillin; Z88.8 Allergy status to other drugs, medicaments and biological substances; Z88.5 Allergy status to narcotic agent; Z79.84 Long term (current) use of oral hypoglycemic drugs; Z79.899 Other long term (current) drug therapy; Z79.82 Long term (current) use of aspirin
CPT/HCPCS: 36415; 51702; 71045; 80048; 80053; 80061; 81001; 83036; 83605; 83880; 84484; 85025; 87077; 87088; 87186; 93005; 93010; 96365; 96366; 96372; 96375; 96376; 99285-25; G0378; J1650; J1815; J1940; J3370; J7060

== ENCOUNTER 2019-06-17 14:46 | Inpatient (IN) | payer MEDICARE, OTHER ==
[~2019-06-17] VITALS: Ht 175.3 cm; Wt 147.0 kg
--- OUTSIDE RECORDS SUMMARY | ~2019-06-17 | XMS | Clinical Summary ---
Demographics + + + | Address | [address] | | | [place] [address] | + + + | Home Phone | | + + + | Preferred Language | Unknown | + + + | Marital Status | Single | + + + | Moravian Affiliation | 1009 | + + + | Race | Unknown | + + + | Ethnic Group | Unknown | + + + Author + + + | Author | Located Within [facility] | | | and [place] | + + + | Organization | Located Within [facility] | | | and [place] | + + + | Address | Unknown | + + + | Phone | Unavailable | + + + Support + + + + + | Name | Relationship | Address | Phone | + + + + + | Rika Ayon | ECON | Unknown | | + + + + + | Yuliya De Leon | [place] | [place] [address] | | + + + + + | Eliza Goodwin | ECON | Unknown | | + + + + + Care Team Providers + +------+ + | Care Editorial Director Name | Role | Phone | + +------+ + | Irving Rebolledo MD | PCP | | + +------+ + Allergies + + + + + + | Active Allergy | Reactions | Severity | Noted | Comments | | | | | Date | | + + + + + + | Codeine | Anxiety | Low | 11/26/19 | | | | | | 17 | | + + + + + + | Penicillins | Unknown | | 06/13/19 | | | | | | 20 | | + + + + + + Medications + + + +---------+------+------+-------+ | Medication | Sig | Dispensed | Refills | Star | End | Statu | | | | | | t | Date | s | | | | | | Date | | | + + + +---------+------+------+-------+ | acetaminophen | Take 325-650 mg by | | 0 | | | Activ | | (TYLENOL) 325 mg | mouth every 4 hours | | | | | e | | tablet | as needed for Pain. | | | | | | + + + +---------+------+------+-------+ | aspirin 81 mg EC | Take 81 mg by mouth | | 0 | | | Activ | | tablet | Daily. | | | | | e | + + + +---------+------+------+-------+ | atorvaSTATin | Take 80 mg by mouth | | 0 | | | Activ | | (LIPITOR) 80 MG | nightly. | | | | | e | | tablet | | | | | | | + + + +---------+------+------+-------+ | ergocalciferol | Take 1.25 mg by | | 0 | | | Activ | | (VITAMIN D2) 1.25 mg | mouth Once a week. | | | | | e | | (50,000 units) | | | | | | | | capsule | | | | | | | + + + +---------+------+------+-------+ | enoxaparin | Inject 0.4 mLs under | 14 | 0 | 05/0 | | Activ | | (LOVENOX) 40 mg/0.4 | the skin every 24 | Syringe | | 2/20 | | e | | mL injection | hours. | | | 20 | | | + + + +---------+------+------+-------+ | ertapenem (INVanz) | Inject 1 g into the | 10 each | 0 | 05/0 | | Activ | | IVPB (custom dose) | vein every 24 hours. | | | 2/20 | | e | | 1 gIndications: | Indications: | | | 20 | | | | Klebsiella | Klebsiella | | | | | | | pneumoniae, ESBL UTI | pneumoniae, ESBL UTI | | | | | | + + + +---------+------+------+-------+ | furosemide (LASIX) | Take 1 tablet by | 60 | 0 | 05/0 | | Activ | | 40 mg tablet | mouth 2 times daily. | tablet | | 1/20 | | e | | | | | | 20 | | | + + + +---------+------+------+-------+ | insulin glargine | Inject 10 Units | 1 pen | 0 | 05/0 | | Activ | | (LANTUS SOLOSTAR) | under the skin every | | | 1/20 | | e | | 100 units/mL | evening. | | | 20 | | | | injection (pen) | | | | | | | + + + +---------+------+------+-------+ | insulin lispro | Inject 0-12 Units | 1 pen | 0 | 05/0 | | Activ | | (HUMALOG KWIKPEN) | under the skin 4 | | | 1/20 | | e | | 100 units/mL | times daily (with | | | 20 | | | | injection (pen) | meals and nightly). | | | | | | + + + +---------+------+------+-------+ | lactobacillus GG | Take 1 capsule by | | 0 | 05/0 | | Activ | | (CULTURELLE) capsule | mouth 2 times daily. | | | 1/20 | | e | | | | | | 20 | | | + + + +---------+------+------+-------+ | metoprolol | Take 1 tablet by | 60 | 0 | 05/0 | | Activ | | tartrate (LOPRESSOR) | mouth 2 times daily. | tablet | | 1/20 | | e | | 25 mg tablet | | | | 20 | | | + + + +---------+------+------+-------+ | nystatin | Cleanse creases and | | 0 | 05/0 | | Activ | | (MYCOSTATIN) [id number] | scrotal area and | | | 1/20 | | e | | UNIT/GM powder | apply powder | | | 20 | | | | | following cleansing | | | | | | | | twice daily | | | | | | + + + +---------+------+------+-------+ | dextrose 50% | Inject 25-50 mLs | | 0 | 05/0 | | Activ | | solution | into the vein as | | | 1/20 | | e | | | needed for Low Blood | | | 20 | | | | | Sugar. | | | | | | + + + +---------+------+------+-------+ | furosemide (LASIX) | Take 20 mg by mouth | | 0 | | 05/0 | Disco | | 20 mg tablet | Daily. | | | | 1/20 | ntinu | | | | | | | 20 | ed | + + + +---------+------+------+-------+ | potassium chloride | Take 10 mEq by mouth | | 0 | | 05/0 | Disco | | (KLOR-CON) 10 MEQ | Daily. | | | | 1/20 | ntinu | | ER tablet | | | | | 20 | ed | + + + +---------+------+------+-------+ | glipiZIDE | Take 10 mg by mouth | | 0 | | 05/0 | Disco | | (GLUCOTROL XL) 10 mg | 2 times daily. | | | | 1/20 | ntinu | | ER tablet | | | | | 20 | ed | + + + +---------+------+------+-------+ | dextrose 10% | Inject into the | 50 mL | 0 | 05/0 | 05/0 | Disco | | (D10W) infusion | vein as needed | | | 1/20 | 1/20 | ntinu | | | (hypoglycemia). | | | 20 | 20 | ed | + + + +---------+------+------+-------+ Active Problems + + + | Problem | Noted Date | + + + | Cellulitis of scrotum | 06/14/2019 | + + + Encounters +--------+ + + + + | Date | Type | Specialty | Care Team | Description | +--------+ + + + + | 06/12/ | Hospital | | Javad Heart MD | Cellulitis of | | 2019 - | Encounter | | | scrotum (Primary | | | | | | Dx); Cellulitis of | | 06/16/ | | | | other specified site | | 2019 | | | | | +--------+ + + + + | 06/12/ | Intake | | | N/A | | 2020 | | | | | +--------+ + + + + from Last 3 Months Immunizations + + + + | Name | Administration Dates | Next Due | + + + + | INFLUENZA 66 Y OR >, | 10/04/2013 | | | TRIVALENT HIGH-DOSE | | | + + + + | INFLUENZA PF | 11/26/2016 | | | QUAD(PED/ADOL/ADULT) | | | | ,PSKT or VIAL | | | + + + + | INFLUENZA TRIV | 10/21/2011 | | | W/PRES(PED/ADOL/ADUL | | | | T),MULTIDOSE | | | + + + + | INFLUENZA, | 11/16/2013, 12/26/2004 | | | UNSPECIFIED | | | | FORMULATION | | | + + + + | PNEUMOCOCCAL | 04/06/2012 | | | POLYSACCHARIDE | | | | 23-VALENT (PPSV23) | | | + + + + | TDAP, (ADOL/ADULT) | 05/08/2019, 08/05/2017 | | + + + + Social History + +-------+ +--------+ + | Tobacco Use | Types | Packs/Day | Years | Date | | | | | Used | | + +-------+ +--------+ + | Former Smoker | | | 36 | Quit: 1989 | + +-------+ +--------+ + + +---+---+---+ | Smokeless Tobacco: | | | | | Never Used | | | | + +---+---+---+ + + +---------+ + | Alcohol Use | Drinks/Week | oz/Week | Comments | + + +---------+ + | Never | | | | + + +---------+ + + + + + | Alcohol Habits | Answer | Date Recorded | + + + + | How often do you have a drink containing | Never | 06/14/2019 | | alcohol? | | | + + + + | How many drinks containing alcohol do you | Not asked | | | have on a typical day when you are | | | | drinking? | | | + + + + | How often do you have six or more drinks on | Not asked | | | one occasion? | | | + + + + + + + | Sex Assigned at | Date Recorded | | | | + + + | Not on file | | + + + + + + + | Job Start Date | Occupation | Industry | + + + + | Not on file | Not on file | Not on file | + + + + + + + + | Travel History | Travel Start | Travel End | + + + + + + | No recent travel history available. | + + Last Filed Vital Signs + + + + + | Vital Sign | Reading | Time Taken | Comments | + + + + + | Blood Pressure | 134/84 | 06/17/2019 10:32 AM | | | | | PDT | | + + + + + | Pulse | 80 | 06/17/2019 10:32 AM | | | | | PDT | | + + + + + | Temperature | 36.4 C (97.6 F) | 06/17/2019 6:52 AM | | | | | PDT | | + + + + + | Respiratory Rate | 20 | 06/17/2019 7:46 AM | | | | | PDT | | + + + + + | Oxygen Saturation | 93% | 06/17/2019 7:46 AM | | | | | PDT | | + + + + + | Inhaled Oxygen | - | - | | | Concentration | | | | + + + + + | Weight | 160.6 kg (354 lb) | 06/17/2019 8:00 AM | | | | | PDT | | + + + + + | Height | 175.3 cm (5' 9") | 06/13/2019 6:57 PM | | | | | PDT | | + + + + + | Body Mass Index | 52.28 | 06/13/2019 6:57 PM | | | | | PDT | | + + + + + Plan of Treatment + + + + + | Health Maintenance | Due Date | Last Done | Comments | + + + + + | Vaccine: Zoster (1 | | | | | of 2) | 2 | | | + + + + + | Vaccine: | | 04/06/2012 | | | Pneumococcal 65+ (2 | 4 | | | | of 2 - PCV13) | | | | + + + + + | Adult Annual | | | | | Wellness Visit | 9 | | | + + + + + | Vaccine: Influenza | | 11/26/2016, 11/16/2013, | | | (Season Ended) | 0 | 10/04/2013, Additional history | | | | | exists | | + + + + + | Vaccine: | | 05/08/2019, 08/05/2017 | | | Dtap/Tdap/Td (3 - | 0 | | | | Td) | | | | + + + + + Procedures + +--------+ + + + | Procedure Name | Priori | Date/Time | Associated Diagnosis | Comments | | | ty | | | | + +--------+ + + + | POC GLUCOSE | Routin | 06/17/2019 | | Results for this | | | e | 11:44 AM | | procedure are in the | | | | PDT | | results section. | + +--------+ + + + | NM NUCLEAR STRESS | Routin | 06/17/2019 | | Results for this | | TEST (PHARMACOLOGIC | e | 9:47 AM | | procedure are in the | | - VASODILATOR) | | PDT | | results section. | + +--------+ + + + | POC GLUCOSE | Routin | 06/17/2019 | | Results for this | | | e | 6:31 AM | | procedure are in the | | | | PDT | | results section. | + +--------+ + + + | POC GLUCOSE | Routin | 06/16/2019 | | Results for this | | | e | 8:46 PM | | procedure are in the | | | | PDT | | results section. | + +--------+ + + + | POC GLUCOSE | Routin | 06/16/2019 | | Results for this | | | e | 5:34 PM | | procedure are in the | | | | PDT | | results section. | + +--------+ + + + | POC GLUCOSE | Routin | 06/16/2019 | | Results for this | | | e | 12:19 PM | | procedure are in the | | | | PDT | | results section. | + +--------+ + + + | POC GLUCOSE | Routin | 06/16/2019 | | Results for this | | | e | 6:03 AM | | procedure are in the | | | | PDT | | results section. | + +--------+ + + + | COMPREHENSIVE | Routin | 06/16/2019 | | Results for this | | METABOLIC PANEL | e | 4:51 AM | | procedure are in the | | | | PDT | | results section. | + +--------+ + + + | CBC WITH | Routin | 06/16/2019 | | Results for this | | DIFFERENTIAL | e | 4:51 AM | | procedure are in the | | | | PDT | | results section. | + +--------+ + + + | POC GLUCOSE | Routin | 06/15/2019 | | Results for this | | | e | 9:13 PM | | procedure are in the | | | | PDT | | results section. | + +--------+ + + + | POC GLUCOSE | Routin | 06/15/2019 | | Results for this | | | e | 5:33 PM | | procedure are in the | | | | PDT | | results section. | + +--------+ + + + | POC GLUCOSE | Routin | 06/15/2019 | | Results for this | | | e | 12:29 PM | | procedure are in the | | | | PDT | | results section. | + +--------+ + + + | POC GLUCOSE | Routin | 06/15/2019 | | Results for this | | | e | 6:18 AM | | procedure are in the | | | | PDT | | results section. | + +--------+ + + + | COMPREHENSIVE | Routin | 06/15/2019 | | Results for this | | METABOLIC PANEL | e | 5:06 AM | | procedure are in the | | | | PDT | | results section. | + +--------+ + + + | CBC WITH | Routin | 06/15/2019 | | Results for this | | DIFFERENTIAL | e | 5:06 AM | | procedure are in the | | | | PDT | | results section. | + +--------+ + + + | MAGNESIUM | Routin | 06/15/2019 | | Results for this | | | e | 5:06 AM | | procedure are in the | | | | PDT | | results section. | + +--------+ + + + | POC GLUCOSE | Routin | 06/14/2019 | | Results for this | | | e | 10:19 PM | | procedure are in the | | | | PDT | | results section. | + +--------+ + + + | POC GLUCOSE | Routin | 06/14/2019 | | Results for this | | | e | 4:35 PM | | procedure are in the | | | | PDT | | results section. | + +--------+ + + + | VANCOMYCIN LEVEL | Timed | 06/14/2019 | | Results for this | | | | 1:49 PM | | procedure are in the | | | | PDT | | results section. | + +--------+ + + + | POC GLUCOSE | Routin | 06/14/2019 | | Results for this | | | e | 11:51 AM | | procedure are in the | | | | PDT | | results section. | + +--------+ + + + | ECHO COMPLETE W | Routin | 06/14/2019 | | Results for this | | CONTRAST | e | 7:54 AM | | procedure are in the | | | | PDT | | results section. | + +--------+ + + + | POC GLUCOSE | Routin | 06/14/2019 | | Results for this | | | e | 6:41 AM | | procedure are in the | | | | PDT | | results section. | + +--------+ + + + | TROPONIN I | Add-On | 06/14/2019 | | Results for this | | | | 4:27 AM | | procedure are in the | | | | PDT | | results section. | + +--------+ + + + | MAGNESIUM | Routin | 06/14/2019 | | Results for this | | | e | 4:27 AM | | procedure are in the | | | | PDT | | results section. | + +--------+ + + + | BASIC METABOLIC | Routin | 06/14/2019 | | Results for this | | PANEL | e | 4:27 AM | | procedure are in the | | | | PDT | | results section. | + +--------+ + + + | CBC NO DIFFERENTIAL | Routin | 06/14/2019 | | Results for this | | | e | 4:27 AM | | procedure are in the | | | | PDT | | results section. | + +--------+ + + + | ECG 12 LEAD | Routin | 06/14/2019 | | Results for this | | | e | 3:13 AM | | procedure are in the | | | | PDT | | results section. | + +--------+ + + + | POC GLUCOSE | Routin | 06/14/2019 | | Results for this | | | e | 1:11 AM | | procedure are in the | | | | PDT | | results section. | + +--------+ + + + | TROPONIN I | Routin | 06/13/2019 | | Results for this | | | e | 11:57 PM | | procedure are in the | | | | PDT | | results section. | + +--------+ + + + | CT PELVIS WO | STAT | 06/13/2019 | | Results for this | | CONTRAST | | 10:56 PM | | procedure are in the | | | | PDT | | results section. | + +--------+ + + + | POC GLUCOSE | Routin | 06/13/2019 | | Results for this | | | e | 9:06 PM | | procedure are in the | | | | PDT | | results section. | + +--------+ + + + | PROCALCITONIN, SERUM | Routin | 06/13/2019 | | Results for this | | | e | 7:20 PM | | procedure are in the | | | | PDT | | results section. | + +--------+ + + + | C-REACTIVE PROTEIN | Routin | 06/13/2019 | | Results for this | | | e | 7:20 PM | | procedure are in the | | | | PDT | | results section. | + +--------+ + + + | PROTIME INR | Routin | 06/13/2019 | | Results for this | | | e | 7:20 PM | | procedure are in the | | | | PDT | | results section. | + +--------+ + + + | HEPATIC FUNCTION | Routin | 06/13/2019 | | Results for this | | PANEL | e | 7:20 PM | | procedure are in the | | | | PDT | | results section. | + +--------+ + + + | B TYPE NATRIURETIC | Routin | 06/13/2019 | | Results for this | | PEPTIDE | e | 7:20 PM | | procedure are in the | | | | PDT | | results section. | + +--------+ + + + | LIPASE | Routin | 06/13/2019 | | Results for this | | | e | 7:20 PM | | procedure are in the | | | | PDT | | results section. | + +--------+ + + + | MAGNESIUM | Routin | 06/13/2019 | | Results for this | | | e | 7:20 PM | | procedure are in the | | | | PDT | | results section. | + +--------+ + + + | BASIC METABOLIC | Routin | 06/13/2019 | | Results for this | | PANEL | e | 7:20 PM | | procedure are in the | | | | PDT | | results section. | + +--------+ + + + | CBC NO DIFFERENTIAL | Routin | 06/13/2019 | | Results for this | | | e | 7:20 PM | | procedure are in the | | | | PDT | | results section. | + +--------+ + + + | TROPONIN I | Routin | 06/13/2019 | | Results for this | | | e | 7:20 PM | | procedure are in the | | | | PDT | | results section. | + +--------+ + + + | POC GLUCOSE | Routin | 06/13/2019 | | Results for this | | | e | 6:47 PM | | procedure are in the | | | | PDT | | results section. | + +--------+ + + + | DRUGS OF ABUSE, | Routin | 06/13/2019 | | Results for this | | SCREEN, URINE | e | 6:16 PM | | procedure are in the | | | | PDT | | results section. | + +--------+ + + + | URINALYSIS, REFLEX | Routin | 06/13/2019 | | Results for this | | MICROSCOPIC AND/OR | e | 6:16 PM | | procedure are in the | | CULTURE | | PDT | | results section. | + +--------+ + + + | CULTURE, URINE | Routin | 06/13/2019 | | Results for this | | | e | 6:16 PM | | procedure are in the | | | | PDT | | results section. | + +--------+ + + + | ECG 12 LEAD | Routin | 06/13/2019 | | Results for this | | | e | 6:05 PM | | procedure are in the | | | | PDT | | results section. | + +--------+ + + + from Last 3 Months Results POC Glucose (06/17/2019 11:44 AM PDT)Only the most recent of 17 results within the time per iod is included. + +---------+ + + + | Component | Value | Ref Range | Performed | Pathologist | | | | | At | Signature | + +---------+ + + + | Glucose, | 124 (H) | 70 - 109 mg/dL | [facility] | | | POC | | | [facility] | | | | | | [facility] | | | | | | [facility] - | | | | | | LABORATORY | | + +---------+ + + + + + | Specimen | + + | Blood | + + + + + + + | Performing | Address | City/State/Zipcode | Phone Number | | Organization | | | | + + + + + | [facility] | [address] | [place] | [phone] | | [facility] | | [id number] | | | - LABORATORY | | | | + + + + + NM Nuclear Stress Test (Vasodilator) (06/17/2019 9:47 AM PDT) + +--------+ + + + | Component | Value | Ref Range | Performed | Pathologist | | | | | At | Signature | + +--------+ + + + | BASELINE | 76 | bpm | [facility] | | | HEART RATE | | | | | + +--------+ + + + | BASELINE | 128/84 | mmHg | [facility] | | | BLOOD | | | | | | PRESSURE | | | | | + +--------+ + + + | PEAK HEART | 81 | | [facility] | | | RATE | | | | | + +--------+ + + + | PEAK BLOOD | 128/84 | mmHG | [facility] | | | PRESSURE | | | | | + +--------+ + + + | Target HR | 122 | | [facility] | | + +--------+ + + + | Percent HR | 57 | | [facility] | | + +--------+ + + + | Max | 143 | | [facility] | | | Predicted | | | | | | HR | | | | | + +--------+ + + + | LVEF-SPECT | 35 | % | [facility] | | | NUCLEAR | | | | | | STRESS/VIAB | | | | | | ILITY | | | | | + +--------+ + + + + + | Specimen | + + | | + + + + + | Narrative | Performed At | + + + | 1. | [facility] | | Pharmacologic stress notable for baseline abnormal ECG without | | | diagnostic changes post stress.2. Normal LV size with LVEF | | | calculated at 35% post stress by SPECT imaging.3. Perfusion images | | | notable for suboptimal technical quality due to soft tissue | | | attenuation, without any obvious significant reversible abnormalities | | | noted. | | + + + + +---------+ + + | Performing | Address | City/State/Zipcode | Phone Number | | Organization | | | | + +---------+ + + | [facility] | | | | + +---------+ + + CBC with Differential (06/16/2019 4:51 AM PDT)Only the most recent of 2 results within the time period is included. + + + + + + | Component | Value | Ref Range | Performed | Pathologist | | | | | At | Signature | + + + + + + | WBC | 7.6 | 4.0 - 11.0 K/uL | [facility] | | | | | | [facility] | | | | | [facility] | | | | | | [facility] - | | | | | | LAB[facility]ATORY | | + + + + + + | RBC | 4.57 | 4.30 - 5.70 | [facility] | | | | | M/uL | [facility] | | | | | | [facility] | | | | | | [facility] - | | | | | | LABORATORY | | + + + + + + | Hemoglobin | 14.1 | 13.5 - 18.0 | [facility] | | | | | g/dL | [facility] | | | | | | [facility] | | | | | | [facility] - | | | | | | LABORATORY | | + + + + + + | Hematocrit | 43.8 | 40.0 - 51.0 % | [facility] | | | | | | [facility] | | | | | | [facility] | | | | | | [facility] - | | | | | | LABORATORY | | + + + + + + | MCV | 95.8 | 83.0 - 101.0 fL | [facility] | | | | | | [facility] | | | | | | [facility] | | | | | | [facility] - | | | | | | LABORATORY | | + + + + + + | MCH | 30.9 | 28.0 - 35.0 pg | [facility] | | | | | | [facility] | | | | | | [facility] | | | | | | [facility] - | | | | | | LABORATORY | | + + + + + + | MCHC | 32.2 | 32.0 - 36.0 | [facility] | | | | | g/dL | [facility] | | | | | | [facility] | | | | | | [facility] - | | | | | | LABORATORY | | + + + + + + | RDW-CV | 13.6 | <15.0 % | [facility] | | | | | | [facility] | | | | | | [facility] | | | | | | [facility] - | | | | | | LABORATORY | | + + + + + + | RDW-SD | 48.5 (H) | 35.1 - 46.3 fL | [facility] | | | | | | [facility] | | | | | | [facility] | | | | | | [facility] - | | | | | | LABORATORY | | + + + + + + | Platelet | 222 | 140 - 440 K/uL | [facility] | | | Count | | | [facility] | | | | | | [facility] | | | | | | [facility] - | | | | | | LABORATORY | | + + + + + + | MPV | 10.5 | 6.5 - 12.4 fL | [facility] | | | | | | [facility] | | | | | | [facility] | | | | | | [facility] - | | | | | | LABORATORY | | + + + + + + | % | 65.9 | 45.0 - 82.0 % | [facility] | | | Neutrophils | | | [facility] | | | | | | [facility] | | | | | | CENTER - | | | | | | LABORATORY | | + + + + + + | % | 19.4 (L) | 20.0 - 45.0 % | [facility] | | | Lymphocytes | | | [facility] | | | | | | [facility] | | | | | | C[facility] - | | | | | | LABORATORY | | + + + + + + | % Monocytes | 8.8 | 4.0 - 12.0 % | [facility] | | | | | | [facility] | | | | | | [facility] | | | | | | [facility] - | | | | | | LABORATORY | | + + + + + + | % | 5.0 | 0.0 - 5.0 % | [facility] | | | Eosinophils | | | [facility] | | | | | | [facility] | | | | | | CENTER - | | | | | | LABORATORY | | + + + + + + | % Basophils | 0.4 | 0.0 - 1.0 % | [facility] | | | | | | [facility] | | | | | | [facility] | | | | | | C[facility] - | | | | | | LABORATORY | | + + + + + + | % Immature | 0.5 (H)Comment: | 0.0 - 0.4 % | [facility] | | | Granulocyte | Preliminary studies have | | [facility] | | | s | indicated the IG% | | MEDICAL | | | | and/or IG# show promise | | CENTER - | | | | as an early indicator | | LABORATORY | | | | for infection. | | | | + + + + + + | Absolute | 5.00 | 1.80 - 8.50 | [facility] | | | Neutrophils | | K/uL | [facility] | | | | | | [facility] | | | | | | CENTER - | | | | | | LABORATORY | | + + + + + + | Absolute | 1.47 | 0.60 - 3.20 | [facility] | | | Lymphocytes | | K/uL | [facility] | | | | | | [facility] | | | | | | CENTER - | | | | | | LABORATORY | | + + + + + + | Absolute | 0.67 | 0.00 - 1.00 | [facility] | | | Monocytes | | K/uL | [facility] | | | | | | [facility] | | | | | | CENTER - | | | | | | LABORATORY | | + + + + + + | Absolute | 0.38 | 0.00 - 0.40 | [facility] | | | Eosinophils | | K/uL | [facility] | | | | | | [facility] | | | | | | CENTER - | | | | | | LABORATORY | | + + + + + + | Absolute | 0.03 | 0.00 - 0.10 | [facility] | | | Basophils | | K/uL | [facility] | | | | | | [facility] | | | | | | CENTER - | | | | | | LABORATORY | | + + + + + + | Absolute | 0.04 (H) | 0.00 - 0.03 | [facility] | | | Immature | | K/uL | [facility] | | | Granulocyte | | | MEDICAL | | | s | | | CENTER - | | | | | | LABORATORY | | + + + + + + | % nRBC | 0 | 0 - 2 per 100 | [facility] | | | | | WBCs | [facility] | | | | | | MEDICAL | | | | | | CENTER - | | | | | | LABORATORY | | + + + + + + | Absolute | 0.00 | 0.00 - 0.01 | [facility] | | | nRBC | | K/uL | [facility] | | | | | | MEDICAL | | | | | | CENTER - | | | | | | LABORATORY | | + + + + + + + + | Specimen | + + | Blood | + + + + + + + | Performing | Address | City/State/Zipcode | Phone Number | | Organization | | | | + + + + + | [facility] | [address] | [place] | [phone] | | [facility] | | [address] | | | - LABORATORY | | | | + + + + + Comprehensive Metabolic Panel (06/16/2019 4:51 AM PDT)Only the most recent of 2 results wi thin the time period is included. + + + + + + | Component | Value | Ref Range | Performed | Pathologist | | | | | At | Signature | + + + + + + | Na | 138 | 136 - 145 | [facility] | | | | | mmol/L | [facility] | | | | | | MEDICAL | | | | | | CENTER - | | | | | | LABORATORY | | + + + + + + | K | 4.1 | 3.4 - 5.1 | [facility] | | | | | mmol/L | [facility] | | | | | | MEDICAL | | | | | | CENTER - | | | | | | LABORATORY | | + + + + + + | Cl | 100 | 98 - 107 mmol/L | [facility] | | | | | | [facility] | | | | | | MEDICAL | | | | | | CENTER - | | | | | | LABORATORY | | + + + + + + | CO2 | 33 (H) | 20 - 31 mmol/L | [facility] | | | | | | [facility] | | | | | | MEDICAL | | | | | | CENTER - | | | | | | LABORATORY | | + + + + + + | Anion Gap | 5 | 3 - 16 mmol/L | [facility] | | | | | | [facility] | | | | | | MEDICAL | | | | | | CENTER - | | | | | | LABORATORY | | + + + + + + | Glucose | 124 (H) | 60 - 106 mg/dL | [facility] | | | | | | [facility] | | | | | | MEDICAL | | | | | | CENTER - | | | | | | LABORATORY | | + + + + + + | BUN | 31 (H) | 9 - 23 mg/dL | [facility] | | | | | | [facility] | | | | | | MEDICAL | | | | | | CENTER - | | | | | | LABORATORY | | + + + + + + | Creatinine | 1.30 | 0.70 - 1.30 | [facility] | | | | | mg/dL | [facility] | | | | | | [facility] | | | | | | CENTER - | | | | | | LABORATORY | | + + + + + + | eGFR if not | 54 (L)Comment: | >=60 | [facility] | | | | GLOMERULAR FILTRATION | mL/min/1.73m2 | [facility] | | | [facility] | RATE,ESTIMATED | | MEDICAL | | | | mL/min/1.59e8Kgrp than | | CENTER - | | | | 60 Chronic kidney | | LABORATORY | | | | disease,if found over a | | | | | | 3-month period.Less than | | | | | | 15 Kidney failureFor | | | | | | | | | | | | Americans,multiply the | | | | | | calculated GFR by 1.21. | | | | | | | | | | + + + + + + | Calcium | 9.3 | 8.7 - 10.4 | [facility] | | | | | mg/dL | [facility] | | | | | | MEDICAL | | | | | | CENTER - | | | | | | LABORATORY | | + + + + + + | Albumin | 3.6 | 3.2 - 4.8 g/dL | [facility] | | | | | | [facility] | | | | | | MEDICAL | | | | | | CENTER - | | | | | | LABORATORY | | + + + + + + | Bilirubin | 0.4 | 0.3 - 1.2 mg/dL | [facility] | | | Total | | | [facility] | | | | | | MEDICAL | | | | | | CENTER - | | | | | | LABORATORY | | + + + + + + | Total | 6.1 | 5.7 - 8.2 g/dL | [facility] | | | Protein | | | [facility] | | | | | | MEDICAL | | | | | | CENTER - | | | | | | LABORATORY | | + + + + + + | AST | 16 | 0 - 34 U/L | [facility] | | | | | | [facility] | | | | | | MEDICAL | | | | | | CENTER - | | | | | | LABORATORY | | + + + + + + | ALT | 7 (L) | 10 - 49 U/L | [facility] | | | | | | [facility] | | | | | | MEDICAL | | | | | | CENTER - | | | | | | LABORATORY | | + + + + + + | Alkaline | 66 | 46 - 116 U/L | [facility] | | | Phosphatase | | | [facility] | | | | | | MEDICAL | | | | | | CENTER - | | | | | | LABORATORY | | + + + + + + | Globulin | 2.5 | 2.1 - 3.8 g/dL | [facility] | | | | | | [facility] | | | | | | MEDICAL | | | | | | CENTER - | | | | | | LABORATORY | | + + + + + + | Albumin/Rosi | 1.4 | 0.8 - 1.9 | [facility] | | | bulin Ratio | | | [facility] | | | | | | MEDICAL | | | | | | CENTER - | | | | | | LABORATORY | | + + + + + + | BUN/Creatin | 23.8 | | [facility] | | | ine Ratio | | | [facility] | | | | | | MEDICAL | | | | | | CENTER - | | | | | | LABORATORY | | + + + + + + + + | Specimen | + + | Blood | + + + + + + + | Performing | Address | City/State/Zipcode | Phone Number | | Organization | | | | + + + + + | [facility] | [address] | [place] | [phone] | | [facility] | | [address] | | | - LABORATORY | | | | + + + + + Magnesium (06/15/2019 5:06 AM PDT)Only the most recent of 3 results within the time period is included. + +-------+ + + + | Component | Value | Ref Range | Performed | Pathologist | | | | | At | Signature | + +-------+ + + + | Magnesium | 2.1 | 1.6 - 2.6 mg/dL | [facility] | | | | | | [facility] | | | | | | MEDICAL | | | | | | CENTER - | | | | | | LABORATORY | | + +-------+ + + + + + | Specimen | + + | Blood | + + + + + + + | Performing | Address | City/State/Zipcode | Phone Number | | Organization | | | | + + + + + | [facility] | [address] | [place], [place] | [phone] | | [facility] | | [address] | | | - LABORATORY | | | | + + + + + Vancomycin Level (06/14/2019 1:49 PM PDT) + +-------+ + + + | Component | Value | Ref Range | Performed | Pathologist | | | | | At | Signature | + +-------+ + + + | Date of | | | [facility] | | | Last Dose | | | [facility] | | | | | | MEDICAL | | | | | | CENTER - | | | | | | LABORATORY | | + +-------+ + + + | Time of | | | [facility] | | | Last Dose | | | [facility] | | | | | | MEDICAL | | | | | | CENTER - | | | | | | LABORATORY | | + +-------+ + + + | Vancomycin | 13.6 | 5.0 - 20.0 | [facility] | | | Random | | ug/mL | [facility] | | | | | | MEDICAL | | | | | | CENTER - | | | | | | LABORATORY | | + +-------+ + + + + + | Specimen | + + | Blood | + + + + + + + | Performing | Address | City/State/Zipcode | Phone Number | | Organization | | | | + + + + + | [facility] | [address] | [place] | [phone] | | [facility] | | [address] | | | - LABORATORY | | | | + + + + + ECHO Complete w Contrast (06/14/2019 7:54 AM PDT) + +--------+ + + + | Component | Value | Ref Range | Performed | Pathologist | | | | | At | Signature | + +--------+ + + + | LVIDd | 5.8 | cm | [facility] | | + +--------+ + + + | FS | 26 | % | [facility] | | + +--------+ + + + | LA volume | 72.96 | mL | [facility] | | + +--------+ + + + | Ascending | 3.91 | cm | [facility] | | | aorta | | | | | + +--------+ + + + | IVRT | 141.87 | msec | [facility] | | + +--------+ + + + | LVOT peak | 77.64 | cm/s | [facility] | | | denae | | | | | + +--------+ + + + | AV peak denae | 159.41 | cm/s | [facility] | | + +--------+ + + + | AV peak | 10.16 | mmHg | [facility] | | | gradient | | | | | + +--------+ + + + | LA Volume | 28 | mL/m2 | [facility] | | | Index | | | | | + +--------+ + + + | AV LVOT | 2.41 | mmHg | [facility] | | | Peak | | | | | | Gradient | | | | | + +--------+ + + + | LV | 9.46 | cm | [facility] | | | Diastolic | | | | | | Length 4C | | | | | + +--------+ + + + | LV | 50 | % | [facility] | | | Caldwell's | | | | | | Biplane EF | | | | | + +--------+ + + + | LV ED | 175.32 | ml | [facility] | | | Volume | | | | | | (Caldwell's) | | | | | + +--------+ + + + | LV ED | 66 | ml/m2 | [facility] | | | Volume | | | | | | Index | | | | | + +--------+ + + + | LV ES | 94.84 | ml | [facility] | | | Volume | | | | | + +--------+ + + + | MV E' | 10 | cm/s | [facility] | | | Septal | | | | | | Velocity | | | | | + +--------+ + + + | MV | 458.47 | cm/s2 | [facility] | | | Deceleratio | | | | | | n [facility] | | | | | + +--------+ + + + | MV | 188.1 | msec | [facility] | | | Deceleratio | | | | | | n Time | | | | | + +--------+ + + + | MV E/A | 0.72 | | [facility] | | | Ratio | | | | | + +--------+ + + + | MV Peak | 119.93 | cm/s | [facility] | | | A-Wave | | | | | + +--------+ + + + | MV Peak | 86.24 | cm/s | [facility] | | | E-Wave | | | | | + +--------+ + + + | LA Area | 20.76 | cm2 | [facility] | | + +--------+ + + + | MV E/E | 8.62 | | [facility] | | | SEPTAL | | | | | + +--------+ + + + | LV ES | 36 | ml/m2 | [facility] | | | Volume | | | | | | Index | | | | | + +--------+ + + + | Vitals | 175.3 | | [facility] | | | Height | | | | | + +--------+ + + + | Vitals | 162.70 | | [facility] | | | Weight | | | | | + +--------+ + + + | Aortic Root | 3.64 | cm | [facility] | | | Diameter | | | | | + +--------+ + + + | IVS | 1.38 | cm | [facility] | | | Diastolic | | | | | | Thickness | | | | | | MM | | | | | + +--------+ + + + | LVPW | 1.4 | cm | [facility] | | | Diastolic | | | | | | Thickness | | | | | | MM | | | | | + +--------+ + + + | IVS | 1.58 | cm | [facility] | | | Systolic | | | | | | Thickness | | | | | | MM | | | | | + +--------+ + + + | LV Systolic | 4.29 | cm | [facility] | | | Diameter | | | | | | MM | | | | | + +--------+ + + + | LVPW | 1.7 | cm | [facility] | | | Systolic | | | | | | Thickness | | | | | | MM | | | | | + +--------+ + + + | AV Cusp | 2.32 | cm | [facility] | | | Seperation | | | | | | MM | | | | | + +--------+ + + + | TAPSE | 2.1 | cm | [facility] | | + +--------+ + + + | LVEF-TTE | 55 | % | [facility] | | | TRANSTHORAC | | | | | | IC ECHO | | | | | + +--------+ + + + | RA PRESSURE | 3 | mmHg | [facility] | | + +--------+ + + + + + | Specimen | + + | | + + + + + | Narrative | Performed At | + + + | 1. Normal | [facility] | | left ventricular size with a mild to moderate concentric left | | | ventricular hypertrophy. Preserved left ventricular systolic | | | function. LVEF is 55%.3. Grade 1 left ventricular diastolic | | | dysfunction.3. Normal valvular structure.4. Normal right-sided | | | pressure.5. Normal IVC with a normal respiratory collapse. | | |5. Normal IVC with a normal respiratory collapse. | | + + + + +---------+ + + | Performing | Address | City/State/Zipcode | Phone Number | | Organization | | | | + +---------+ + + | [facility] | | | | + +---------+ + + Troponin I (06/14/2019 4:27 AM PDT)Only the most recent of 3 results within the time jesica collins is included. + + + + + + | Component | Value | Ref Range | Performed | Pathologist | | | | | At | Signature | + + + + + + | Troponin I | 0.02Comment: | <0.06 ng/mL | [facility] | | | | Comment:Reference | | [facility] | | | | Ranges: 0.00-0.06 = | | MEDICAL | | | | NORMAL >0.06 = | | CENTER - | | | | SUSPICIOUS FOR | | LABORATORY | | | | MYOCARDIAL DAMAGE NOTE: | | | | | | Values greater than | | | | | | 0.78 ng/mL have been | | | | | | shown to be strongly | | | | | | associated with acute | | | | | | myocardial infarction. | | | | | | The [employer] | | | | | | Cardiology (ACC) | | | | | | recommends a decision | | | | | | limit of 0.06 ng/mL for | | | | | | this assay. Results | | | | | | greater than 0.06 can | | | | | | reflect a pre-infarct | | | | | | acute coronary syndrome, | | | | | | but can also reflect | | | | | | myocardial necrosis or | | | | | | injury that is not due | | | | | | to coronary artery | | | | | | disease. Some of these | | | | | | causes are sepsis, | | | | | | hypocolemia, atrial | | | | | | fibrillation, heart | | | | | | failure, pulmonary | | | | | | embolism, myocarditis, | | | | | | myocardial contusion, | | | | | | and renal failure. The | | | | | | diagnosis of myocardial | | | | | | infarction should be | | | | | | based on a combination | | | | | | of the patient's | | | | | | clinical presentation | | | | | | and the clinical | | | | | | laboratory test results | | | | | | (especially serial | | | | | | troponin levels). | | | | + + + + + + + + | Specimen | + + | Blood | + + + + + + + | Performing | Address | City/State/Zipcode | Phone Number | | Organization | | | | + + + + + | [facility] | [address] | [place] | [phone] | | [facility] | | [address] | | | - LABORATORY | | | | + + + + + CBC no Differential (06/14/2019 4:27 AM PDT)Only the most recent of 2 results within the period is included. + + + + + + | Component | Value | Ref Range | Performed | Pathologist | | | | | At | Signature | + + + + + + | WBC | 7.2 | 4.0 - 11.0 K/uL | [facility] | | | | | | [facility] | | | | | | MEDICAL | | | | | | CENTER - | | | | | | LABORATORY | | + + + + + + | RBC | 4.32 | 4.30 - 5.70 | [facility] | | | | | M/uL | [facility] | | | | | | MEDICAL | | | | | | CENTER - | | | | | | LABORATORY | | + + + + + + | Hemoglobin | 13.4 (L) | 13.5 - 18.0 | [facility] | | | | | g/dL | [facility] | | | | | | MEDICAL | | | | | | CENTER - | | | | | | LABORATORY | | + + + + + + | Hematocrit | 40.6 | 40.0 - 51.0 % | [facility] | | | | | | [facility] | | | | | | MEDICAL | | | | | | CENTER - | | | | | | LABORATORY | | + + + + + + | MCV | 94.0 | 83.0 - 101.0 fL | [facility] | | | | | | [facility] | | | | | | MEDICAL | | | | | | CENTER - | | | | | | LABORATORY | | + + + + + + | MCH | 31.0 | 28.0 - 35.0 pg | [facility] | | | | | | [facility] | | | | | | MEDICAL | | | | | | CENTER - | | | | | | LABORATORY | | + + + + + + | MCHC | 33.0 | 32.0 - 36.0 | [facility] | | | | | g/dL | [facility] | | | | | | MEDICAL | | | | | | CENTER - | | | | | | LABORATORY | | + + + + + + | RDW-CV | 13.7 | <15.0 % | [facility] | | | | | | [facility] | | | | | | MEDICAL | | | | | | CENTER - | | | | | | LABORATORY | | + + + + + + | RDW-SD | 47.5 (H) | 35.1 - 46.3 fL | [facility] | | | | | | [facility] | | | | | | MEDICAL | | | | | | CENTER - | | | | | | LABORATORY | | + + + + + + | Platelet | 196 | 140 - 440 K/uL | [facility] | | | Count | | | [facility] | | | | | | MEDICAL | | | | | | CENTER - | | | | | | LABORATORY | | + + + + + + | MPV | 11.1 | 6.5 - 12.4 fL | [facility] | | | | | | [facility] | | | | | | MEDICAL | | | | | | CENTER - | | | | | | LABORATORY | | + + + + + + | % nRBC | 0 | 0 - 2 per 100 | [facility] | | | | | WBCs | [facility] | | | | | | MEDICAL | | | | | | CENTER - | | | | | | LABORATORY | | + + + + + + | Absolute | 0.00 | 0.00 - 0.01 | [facility] | | | nRBC | | K/uL | [facility] | | | | | | MEDICAL | | | | | | CENTER - | | | | | | LABORATORY | | + + + + + + + + | Specimen | + + | Blood | + + + + + + + | Performing | Address | City/State/Zipcode | Phone Number | | Organization | | | | + + + + + | [facility] | [address] | [place] | [phone] | | [facility] | | [address] | | | - LABORATORY | | | | + + + + + Basic Metabolic Panel (06/14/2019 4:27 AM PDT)Only the most recent of 2 results within the time period is included. + + + + + + | Component | Value | Ref Range | Performed | Pathologist | | | | | At | Signature | + + + + + + | Na | 137 | 136 - 145 | [facility] | | | | | mmol/L | [facility] | | | | | | MEDICAL | | | | | | CENTER - | | | | | | LABORATORY | | + + + + + + | K | 3.8 | 3.4 - 5.1 | [facility] | | | | | mmol/L | [facility] | | | | | | MEDICAL | | | | | | CENTER - | | | | | | LABORATORY | | + + + + + + | Cl | 103 | 98 - 107 mmol/L | [facility] | | | | | | [facility] | | | | | | MEDICAL | | | | | | CENTER - | | | | | | LABORATORY | | + + + + + + | CO2 | 31 | 20 - 31 mmol/L | [facility] | | | | | | [facility] | | | | | | MEDICAL | | | | | | CENTER - | | | | | | LABORATORY | | + + + + + + | Anion Gap | 3 | 3 - 16 mmol/L | [facility] | | | | | | [facility] | | | | | | MEDICAL | | | | | | CENTER - | | | | | | LABORATORY | | + + + + + + | Glucose | 127 (H) | 60 - 106 mg/dL | [facility] | | | | | | [facility] | | | | | | MEDICAL | | | | | | CENTER - | | | | | | LABORATORY | | + + + + + + | BUN | 36 (H) | 9 - 23 mg/dL | [facility] | | | | | | [facility] | | | | | | MEDICAL | | | | | | CENTER - | | | | | | LABORATORY | | + + + + + + | Creatinine | 1.43 (H) | 0.70 - 1.30 | [facility] | | | | | mg/dL | [facility] | | | | | | MEDICAL | | | | | | CENTER - | | | | | | LABORATORY | | + + + + + + | eGFR if not | 48 (L)Comment: | >=60 | [facility] | | | | GLOMERULAR FILTRATION | mL/min/1.73m2 | [facility] | | | [facility]IAN | RATE,ESTIMATED | | MEDICAL | | | | mL/min/1.29v0Dbky than | | CENTER - | | | | 60 Chronic kidney | | LABORATORY | | | | disease,if found over a | | | | | | 3-month period.Less than | | | | | | 15 Kidney failureFor | | | | | | | | | | | | Americans,multiply the | | | | | | calculated GFR by 1.21. | | | | | | | | | | + + + + + + | Calcium | 8.4 (L) | 8.7 - 10.4 | [facility] | | | | | mg/dL | [facility] | | | | | | MEDICAL | | | | | | CENTER - | | | | | | LABORATORY | | + + + + + + | BUN/Creatin | 25.2 | | [facility] | | | ine Ratio | | | [facility] | | | | | | MEDICAL | | | | | | CENTER - | | | | | | LABORATORY | | + + + + + + + + | Specimen | + + | Blood | + + + + + + + | Performing | Address | City/State/Zipcode | Phone Number | | Organization | | | | + + + + + | [facility] | [address] | [place] | [phone] | | [facility] | | [address] | | | - LABORATORY | | | | + + + + + ECG 12 lead (06/14/2019 3:13 AM PDT)Only the most recent of 2 results within the time anna od is included. + + + + + + | Component | Value | Ref Range | Performed | Pathologist | | | | | At | Signature | + + + + + + | VENTRICULAR | 82 | BPM | [facility] | | | RATE EKG | | | | | + + + + + + | ATRIAL RATE | 82 | BPM | [facility] | | + + + + + + | P-R | 206 | ms | [facility] | | | INTERVAL | | | | | + + + + + + | QRS | 108 | ms | [facility] | | | DURATION | | | | | + + + + + + | Q-T | 416 | ms | [facility] | | | INTERVAL | | | | | + + + + + + | Q-T | 486 | ms | [facility] | | | INTERVAL | | | | | | (CORRECTED) | | | | | + + + + + + | P WAVE AXIS | 60 | degrees | [facility] | | + + + + + + | QRS AXIS | -30 | degrees | [facility] | | + + + + + + | T AXIS | 60 | degrees | [facility] | | + + + + + + | INTERPRETAT | Sinus rhythm with | | [facility] | | | ION TEXT | PVCLeft axis | | | | | | deviationSeptal infarct | | | | | | , age | | | | | | undeterminedInferior | | | | | | infarct (cited on or | | | | | | before | | | | | | 13-JUN-2019)Nonspecific | | | | | | T wave abnormality leads | | | | | | I and aVLAbnormal | | | | | | ECGWhen compared with | | | | | | ECG of 13-JUN-2019 | | | | | | 18:05, | | | | | | (Unconfirmed)Septal | | | | | | infarct is now | | | | | | presentConfirmed by | | | | | | VALENCIA MARTINEZ MD ([id number]) | | | | | | on 06/14/2019 6:50:57 AM | | | | + + + + + + + + | Specimen | + + | | + + + + + | Narrative | Performed At | + + + | | | + + + + +---------+ + + | Performing | Address | City/State/Zipcode | Phone Number | | Organization | | | | + +---------+ + + | [facility] | | | | + +---------+ + + CT Pelvis wo Contrast (06/13/2019 10:56 PM PDT) + + | Specimen | + + | | + + + + + | Narrative | Performed At | + + + | CT PELVIS WO CONTRAST 06/13/2019 10:56 PM HISTORY: Scrotal mass | [facility] | | or lump, evaluate for Radames's gangrene. COMPARISON: None. | | | PROTOCOL: Axial images of the pelvis were obtained. Coronal and | | | sagittal reformations were acquired. FINDINGS: The bladder is | | | partially collapsed with presence of gas that could relate to recent | | | Mr. indication. 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 | | | Imaged small bowel and colon show no acute findings. Moderate | | | atherosclerosis is seen. There are no enlarged lymph nodes. There | | | is no evidence for free fluid or pneumoperitoneum. There is | | | scrotal enlargement, but the scrotum is incompletely visualized on | | | this study. No soft tissue gas is seen to suggest Radames's | | | gangrene. There appears to be large bilateral hydroceles. Mild | | | degenerative changes are present of the bilateral hips and imaged | | | lumbar spine. IMPRESSION- Scrotal enlargement. The scrotum is | | | incompletely visualized on this study. No soft tissue gas to suggest | | | Radames's gangrene. There appears to be large bilateral hydroceles. | | | If indicated, repeat CT to cover the remainder of the perineum can be | | | considered versus ultrasound. A preliminary report was sent by | | | [facility] with no significant discrepancy on 06/13/2019 11:17 | | | PM. Dictated and Signed by: Royce Cheung MD Electronically | | | signed: 06/14/2019 8:48 AM | | + + + + + | Procedure Note | + + | Dane, Rad Results In - 06/14/2019 8:[address] PELVIS WO CONTRAST 06/13/2019 10:56 | | PMHISTORY: Scrotal mass or lump, evaluate for Radames's gangrene.COMPARISON: | | None.PROTOCOL: Axial images of the pelvis were obtained. Coronal and | | sagittalreformations were acquired.FINDINGS:The bladder is partially collapsed with | | presence of gas that could relate torecent Mr. indication.There appears to be a TURP | | defect of the prostate.Imaged small bowel and colon show no acute findings.Moderate | | atherosclerosis is seen. There are no enlarged lymph nodes.There is no evidence for free | | fluid or pneumoperitoneum.There is scrotal enlargement, but the scrotum is incompletely | | visualized on thisstudy. No soft tissue gas is seen to suggest Radames's gangrene. | | There appearsto be large bilateral hydroceles. Mild degenerative changes are present of | | thebilateral hips and imaged lumbar spine.IMPRESSION- Scrotal enlargement. The scrotum | | is incompletely visualized on this study. Nosoft tissue gas to suggest Radames's | | gangrene. There appears to be largebilateral hydroceles. If indicated, repeat CT to | | cover the remainder of theperineum can be considered versus ultrasound.A preliminary | | report was sent by [facility] with no significant discrepancyon 06/13/2019 11:17 | | PM.Dictated and Signed by: Royce Cheung MD Electronically signed: 06/14/2019 8:48 AM | | | |Moderate atherosclerosis is seen. There are no enlarged lymph nodes. | | | |There is no evidence for free fluid or pneumoperitoneum. | | | |There is scrotal enlargement, but the scrotum is incompletely visualized on this | |study. No soft tissue gas is seen to suggest Radames's gangrene. There appears | |to be large bilateral hydroceles. Mild degenerative changes are present of the | |bilateral hips and imaged lumbar spine. | | | |IMPRESSION- | |Scrotal enlargement. The scrotum is incompletely visualized on this study. No | |soft tissue gas to suggest Radames's gangrene. There appears to be large | |bilateral hydroceles. If indicated, repeat CT to cover the remainder of the | |perineum can be considered versus ultrasound. | | | |A preliminary report was sent by [facility] with no significant discrepancy | |on 06/13/2019 11:17 PM. | | | |Dictated and Signed by: Royce Cheung MD | | Electronically signed: 06/14/2019 8:48 AM | + + + +---------+ + + | Performing | Address | City/State/Zipcode | Phone Number | | Organization | | | | + +---------+ + + | [facility] | | | | + +---------+ + + Procalcitonin (06/13/2019 7:20 PM PDT) + + + + + + | Component | Value | Ref Range | Performed | Pathologist | | | | | At | Signature | + + + + + + | Procalciton | 0.17 | <=0.50 ng/mL | [facility] | | | in | | | [facility] | | | | | | MEDICAL | | | | | | CENTER - | | | | | | LABORATORY | | + + + + + + | Comment | Comment: < 0.50 | | [facility] | | | | ng/mL:Procalcitonin | | [facility] | | | | levels below 0.50 ng/mL | | MEDICAL | | | | on the first day of | | CENTER - | | | | admission represents a | | LABORATORY | | | | low risk for progression | | | | | | to severe sepsis and/or | | | | | | septic shock, however | | | | | | these do not exclude an | | | | | | infection, because | | | | | | localized infections | | | | | | (without systemic signs) | | | | | | may also be associated | | | | | | with such low levels. | | | | | | > 2.00 | | | | | | ng/mL:Procalcitonin | | | | | | levels above 2.00 ng/mL | | | | | | on the first day of | | | | | | admission represents a | | | | | | high risk for | | | | | | progression to severe | | | | | | sepsis and/or septic | | | | | | shock. If the | | | | | | procalcitonin | | | | | | measurement is performed | | | | | | shortly after the | | | | | | systemic infection | | | | | | process has started | | | | | | (usually less than 6 | | | | | | hours), these values may | | | | | | still be low. As | | | | | | various non-infectious | | | | | | conditions are known to | | | | | | induce procalcitonin as | | | | | | well, procalcitonin | | | | | | levels between 0.50 | | | | | | ng/mL and 2.00 ng/mL | | | | | | should be reviewed | | | | | | carefully to take into | | | | | | account the specific | | | | | | clinical background and | | | | | | condition(s) of the | | | | | | individual patient. | | | | + + + + + + + + | Specimen | + + | Blood | + + + + + + + | Performing | Address | City/State/Zipcode | Phone Number | | Organization | | | | + + + + + | [facility] | [address] | [place] | [phone] | | [facility] | | [address] | | | - LABORATORY | | | | + + + + + Protime INR (06/13/2019 7:20 PM PDT) + + + + + + | Component | Value | Ref Range | Performed | Pathologist | | | | | At | Signature | + + + + + + | Prothrombin | 14.7 (H) | 11.3 - 13.9 | [facility] | | | Time | | seconds | [facility] | | | | | | [facility] | | | | | | [facility] - | | | | | | LABORATORY | | + + + + + + | INR | 1.1Comment: Usual Oral | 0.9 - 1.1 | [facility] | | | | Anticoagulation Range: | | [facility] | | | | 2.0 - 3.0High | | MEDICAL | | | | Level Oral | | CENTER - | | | | Anticoagulation Range: | | LABORATORY | | | | 2.5 - 3.5 | | | | + + + + + + + + | Specimen | + + | Blood | + + + + + + + | Performing | Address | City/State/Zipcode | Phone Number | | Organization | | | | + + + + + | [facility] | [address] | [place] | [phone] | | [facility] | | [address] | | | - LABORATORY | | | | + + + + + C-Reactive Protein (06/13/2019 7:20 PM PDT) + + + + + + | Component | Value | Ref Range | Performed | Pathologist | | | | | At | Signature | + + + + + + | CRP | 104.40 (H) | <10.00 mg/L | [facility] | | | | [facility] | | | | | | [facility]ICAL | | | | | | CENTER - | | | | | | LABORATORY | | + + + + + + + + | Specimen | + + | Blood | + + + + + + + | Performing | Address | City/State/Zipcode | Phone Number | | Organization | | | | + + + + + | [facility] | [address] | [place] | [phone] | | [facility] | | [address] | | | - LABORATORY | | | | + + + + + B Type Natriuretic Peptide (06/13/2019 7:20 PM PDT) + + + + + + | Component | Value | Ref Range | Performed | Pathologist | | | | | At | Signature | + + + + + + | BNP | 63Comment: New method in | <100 pg/mL | [facility] | | | | use as of April 14 | | [facility] | | | | 2018. Check reference | | MEDICAL | | | | range for changes.Some | | CENTER - | | | | analytes show | | LABORATORY | | | | significant variation | | | | | | from the previous | | | | | | method.It may be | | | | | | necessary to set a new | | | | | | baseline for this | | | | | | analyte. | | | | + + + + + + + + | Specimen | + + | Blood | + + + + + + + | Performing | Address | City/State/Zipcode | Phone Number | | Organization | | | | + + + + + | [facility] | [address] | [place] | [phone] | | [facility] | | [address] | | | - LABORATORY | | | | + + + + + Lipase (06/13/2019 7:20 PM PDT) + + + + + + | Component | Value | Ref Range | Performed | Pathologist | | | | | At | Signature | + + + + + + | Lipase | 43Comment: New method in | 12 - 53 U/L | [facility] | | | | use as of April 14 | | [facility] | | | | 2018. Check reference | | MEDICAL | | | | range for changes.Some | | CENTER - | | | | analytes show | | LABORATORY | | | | significant variation | | | | | | from the previous | | | | | | method.It may be | | | | | | necessary to set a new | | | | | | baseline for this | | | | | | analyte. | | | | + + + + + + + + | Specimen | + + | Blood | + + + + + + + | Performing | Address | City/State/Zipcode | Phone Number | | Organization | | | | + + + + + | [facility] | [address] | [place] | [phone] | | [facility] | | [address] | | | - LABORATORY | | | | + + + + + Hepatic Function Panel (06/13/2019 7:20 PM PDT) + +-------+ + + + | Component | Value | Ref Range | Performed | Pathologist | | | | | At | Signature | + +-------+ + + + | Bilirubin | 0.5 | 0.3 - 1.2 mg/dL | [facility] | | | Total | | | [facility] | | | | | | MEDICAL | | | | | | CENTER - | | | | | | LABORATORY | | + +-------+ + + + | Total | 6.1 | 5.7 - 8.2 g/dL | [facility] | | | Protein | | | [facility] | | | | | | MEDICAL | | | | | | CENTER - | | | | | | LABORATORY | | + +-------+ + + + | Albumin | 3.6 | 3.2 - 4.8 g/dL | [facility] | | | | | | [facility] | | | | | | MEDICAL | | | | | | CENTER - | | | | | | LABORATORY | | + +-------+ + + + | AST | 13 | 0 - 34 U/L | [facility] | | | | | | [facility] | | | | | | MEDICAL | | | | | | CENTER - | | | | | | LABORATORY | | + +-------+ + + + | ALT | 9 (L) | 10 - 49 U/L | [facility] | | | | | | [facility] | | | | | | MEDICAL | | | | | | CENTER - | | | | | | LABORATORY | | + +-------+ + + + | Alkaline | 72 | 46 - 116 U/L | [facility] | | | Phosphatase | | | [facility] | | | | | | MEDICAL | | | | | | CENTER - | | | | | | LABORATORY | | + +-------+ + + + | Globulin | 2.5 | 2.1 - 3.8 g/dL | [facility] | | | | | | [facility] | | | | | | MEDICAL | | | | | | CENTER - | | | | | | LABORATORY | | + +-------+ + + + | Albumin/Rosi | 1.4 | 0.8 - 1.9 | [facility] | | | bulin Ratio | | | [facility] | | | | | | MEDICAL | | | | | | CENTER - | | | | | | LABORATORY | | + +-------+ + + + | Bilirubin, | 0.20 | 0.00 - 0.30 | [facility] | | | Direct | | mg/dl | [facility] | | | | | | MEDICAL | | | | | | CENTER - | | | | | | LABORATORY | | + +-------+ + + + + + | Specimen | + + | Blood | + + + + + + + | Performing | Address | City/State/Zipcode | Phone Number | | Organization | | | | + + + + + | [facility] | [address] | [place], [place] | [phone] | | [facility] | | [address] | | | - LABORATORY | | | | + + + + + Urinalysis, Reflex Microscopic and/or Culture (06/13/2019 6:16 PM PDT) + + + + + + | Component | Value | Ref Range | Performed | Pathologist | | | | | At | Signature | + + + + + + | Color, | Yellow | Light Yellow, | [facility] | | | Urine | | Yellow, Straw | [facility] | | | | | | MEDICAL | | | | | | CENTER - | | | | | | LABORATORY | | + + + + + + | Clarity | Clear | Clear | [facility] | | | | | | [facility] | | | | | | MEDICAL | | | | | | CENTER - | | | | | | LABORATORY | | + + + + + + | pH, Urine | 5.0 | 5.0 - 8.0 | [facility] | | | | | | [facility] | | | | | | MEDICAL | | | | | | CENTER - | | | | | | LABORATORY | | + + + + + + | Specific | 1.010 | 1.001 - 1.030 | [facility] | | | [place], | | | [facility] | | | Urine | | | MEDICAL | | | | | | CENTER - | | | | | | LABORATORY | | + + + + + + | Protein, | Negative | Negative | [facility] | | | Urine | | | [facility] | | | | | | MEDICAL | | | | | | CENTER - | | | | | | LABORATORY | | + + + + + + | Blood, | Small (A) | Negative | [facility] | | | Urine | | | [facility] | | | | | | MEDICAL | | | | | | CENTER - | | | | | | LABORATORY | | + + + + + + | Glucose, | Negative | Negative | [facility] | | | Urine | | | [facility] | | | | | | MEDICAL | | | | | | CENTER - | | | | | | LABORATORY | | + + + + + + | Ketones, | Negative | Negative | [facility] | | | Urine | | | [facility] | | | | | | MEDICAL | | | | | | CENTER - | | | | | | LABORATORY | | + + + + + + | Bilirubin, | Negative | Negative | [facility] | | | Urine | | | [facility] | | | | | | MEDICAL | | | | | | CENTER - | | | | | | LABORATORY | | + + + + + + | Nitrite, | Negative | Negative | [facility] | | | Urine | | | [facility] | | | | | | MEDICAL | | | | | | CENTER - | | | | | | LABORATORY | | + + + + + + | Leukocyte | Trace (A) | Negative | [facility] | | | Esterase, | | | [facility] | | | Urine | | | MEDICAL | | | | | | CENTER - | | | | | | LABORATORY | | + + + + + + | Urobilinoge | Negative | 0.2 mg/dL, 1.0 | [facility] | | | n, Urine | | mg/dL, Negative | [facility] | | | | | | MEDICAL | | | | | | CENTER - | | | | | | LABORATORY | | + + + + + + | White Blood | 2-5 (A) | 0 - 2 /HPF | [facility] | | | Cells, | | | [facility] | | | Urine | | | MEDICAL | | | | | | CENTER - | | | | | | LABORATORY | | + + + + + + | Red Blood | 0-2 | 0 - 2 /HPF | [facility] | | | Cells, | | | [facility] | | | Urine | | | MEDICAL | | | | | | CENTER - | | | | | | LABORATORY | | + + + + + + | Squamous | 5-10 (A) | 0 - 2 /LPF | [facility] | | | Epithelial | | | [facility] | | | Cells, | | | MEDICAL | | | Urine | | | CENTER - | | | | | | LABORATORY | | + + + + + + | Bacteria, | 1+ (A) | Negative /HPF | [facility] | | | Urine | | | [facility] | | | | | | MEDICAL | | | | | | CENTER - | | | | | | LABORATORY | | + + + + + + | Mucus, | Present (A) | Negative /LPF | [facility] | | | Urine | | | [facility] | | | | | | MEDICAL | | | | | | CENTER - | | | | | | LABORATORY | | + + + + + + | Urine | Urine Culture Not | | [facility] | | | Comment | Indicated | | [facility] | | | | | | MEDICAL | | | | | | CENTER - | | | | | | LABORATORY | | + + + + + + + + | Specimen | + + | Urine - Urine | | specimen obtained by | | clean catch | | procedure (specimen) | + + + + + + + | Performing | Address | City/State/Zipcode | Phone Number | | Organization | | | | + + + + + | [facility] | [address] | [place], [place] | [phone] | | [facility] | | [address] | | | - LABORATORY | | | | + + + + + Drugs of Abuse, Screen, Urine (06/13/2019 6:16 PM PDT) + + + + + + | Component | Value | Ref Range | Performed | Pathologist | | | | | At | Signature | + + + + + + | Amphetamine | Negative | Negative | [facility] | | | Screen, | | | [facility] | | | Urine | | | MEDICAL | | | | | | CENTER - | | | | | | LABORATORY | | + + + + + + | Barbiturate | Negative | Negative | [facility] | | | s Screen, | | | [facility] | | | Urine | | | MEDICAL | | | | | | CENTER - | | | | | | LABORATORY | | + + + + + + | Benzodiazep | Negative | Negative | [facility] | | | breezy | | | [facility] | | | Screen, | | | MEDICAL | | | Urine | | | CENTER - | | | | | | LABORATORY | | + + + + + + | Cannabinoid | Negative | Negative | [facility] | | | s Screen, | | | [facility] | | | Urine | | | MEDICAL | | | | | | CENTER - | | | | | | LABORATORY | | + + + + + + | Cocaine | Negative | Negative | [facility] | | | Screen, | | | [facility] | | | Urine | | | MEDICAL | | | | | | CENTER - | | | | | | LABORATORY | | + + + + + + | Methadone | Negative | Negative | [facility] | | | Screen, | | | [facility] | | | Urine | | | MEDICAL | | | | | | CENTER - | | | | | | LABORATORY | | + + + + + + | Opiates | Negative | Negative | [facility] | | | Screen, | | | [facility] | | | Urine | | | MEDICAL | | | | | | CENTER - | | | | | | LABORATORY | | + + + + + + + + | Specimen | + + | Urine | + + + + + + + | Performing | Address | City/State/Zipcode | Phone Number | | Organization | | | | + + + + + | [facility] | [address] | [place] | [phone] | | [facility] | | [address] | | | - LABORATORY | | | | + + + + + Culture, Urine (06/13/2019 6:16 PM PDT) + + + + + + | Component | Value | Ref Range | Performed | Pathologist | | | | | At | Signature | + + + + + + | Culture | 50,000 CFU/ml Klebsiella | | [facility] | | | | pneumoniae, | | [facility] | | | | ESBLComment: *INFECTION | | MEDICAL | | | | PREVENTION ALERT - ESBL* | | CENTER - | | | | ESBLs are enzymes | | LABORATORY | | | | that mediate resistance | | | | | | to extended-spectrum | | | | | | (third generation) | | | | | | cephalosporins | | | | | | (e.g.,ceftazidime, | | | | | | cefotaxime, | | | | | | (aztreonam) but do not | | | | | | affect | | | | | | cephamycins(cefoxitin | | | | | | and cefotetan) | | | | | | orcarbapenems | | | | | | (e.g.,meropenem or | | | | | | imipenem). Patients who | | | | | | are identified with | | | | | | these organisms should | | | | | | be placed into CONTACT | | | | | | PRECAUTIONS. | | | | + + + + + + + + | Specimen | + + | Urine - Urine | | specimen obtained by | | clean catch | | procedure (specimen) | + + + + +--------+ + | Organism | Antibiotic | Method | Susceptibility | + + +--------+ + | Klebsiella | Cefazolin | | >=64 ug/mL: | | pneumoniae, ESBL | | | Resistant | + + +--------+ + | Klebsiella | Cefoxitin | | 32 ug/mL: | | pneumoniae, ESBL | | | Resistant | + + +--------+ + | Klebsiella | Ceftazidime | | Resistant | | pneumoniae, ESBL | | | | + + +--------+ + | Klebsiella | Ceftriaxone | | >=64 ug/mL: | | pneumoniae, ESBL | | | Resistant | + + +--------+ + | Klebsiella | Ciprofloxacin | | >=4 ug/mL: | | pneumoniae, ESBL | | | Resistant | + + +--------+ + | Klebsiella | Ertapenem | | <=0.5 ug/mL: | | pneumoniae, ESBL | | | Sensitive | + + +--------+ + | Klebsiella | Gentamicin | | >=16 ug/mL: | | pneumoniae, ESBL | | | Resistant | + + +--------+ + | Klebsiella | Meropenem | | <=0.25 ug/mL: | | pneumoniae, ESBL | | | Sensitive | + + +--------+ + | Klebsiella | Nitrofurantoin | | 128 ug/mL: | | pneumoniae, ESBL | | | Resistant | + + +--------+ + | Klebsiella | Piperacillin + | | 64 ug/mL: | | pneumoniae, ESBL | Tazobactam | | Intermediate | + + +--------+ + | Klebsiella | Tobramycin | | >=16 ug/mL: | | pneumoniae, ESBL | | | Resistant | + + +--------+ + | Klebsiella | Trimethoprim + | | >=320 ug/mL: | | pneumoniae, ESBL | Sulfamethoxazole | | Resistant | + + +--------+ + + + + + + | Performing | Address | City/State/Zipcode | Phone Number | | Organization | | | | + + + + + | [facility] | [address] | [place] | [phone] | | [facility] | | [address] | | | - LABORATORY | | | | + + + + + from Last 3 Months Additional Health Concerns + + + + | Infection | Noted Time | Resolved Time | + + + + | Extended Spectrum Beta Lactamase | 06/15/2019 11:03 AM | | | | PDT | | + + + + Insurance + +--------+ +--------+ +---------+--------+ | Payer | Benefi | Subscriber | Effect | Phone | Address | Type | | | t Plan | ID | escobar | | | | | | / | | Dates | | | | | | Group | | | | | | + +--------+ +--------+ +---------+--------+ | MEDICARE | MEDICA | [id number] | 05/18/19 | [phone] | | Medica | | | RE | | 12-Pre | 5 | | re | | | PART A | | sent | | | | | | AND B | | | | | | + +--------+ +--------+ +---------+--------+ | [employer] | [employer] | [id number] | 11/30/ | [phone] | | Medica | | MEDICAID HMO | HEALTH | | 2019-P | 1 | | id | | | MDCD | | resent | | | | | | HMO OR | | | | | | + +--------+ +--------+ +---------+--------+ + +--------+ +--------+ + + | Guarantor Name | Accoun | Relation to | Date | Phone | Billing Address | | | t Type | Patient | of | | | | | | | | | | + +--------+ +--------+ + + | Leonid Shaikh | Person | Self [birth year] | [address] | | [place] | al/Jared | | 1941 | [id number] | [address] | | | [place] | | | [address] (Home) | [address] | + +--------+ +--------+ + + Advance Directives + + + + + | Type | Date Recorded | Patient | Explanation | | | | Breaker Hand | | + + + + + | Power of | | | | | Customer Engagement Specialist | | | | + + + + + | Advance | 06/14/2019 8:00 | | | | Directive | PM | | | + + + + +
--- OUTSIDE RECORDS SUMMARY | ~2019-06-17 | XMS | Encounter Summary ---
Demographics + + + | Address | [address] | | | [place] [address] | + + + | Home Phone | | + + + | Preferred Language | Unknown | + + + | Marital Status | Single | + + + | Sikhism Affiliation | [id number] | + + + | Race | Unknown | + + + | Ethnic Group | Unknown | + + + Author + + + | Author | [facility] | | | and [place] | + + + | Organization | [facility] | | | and [place] | [...] + + | Yuliya De Leon | ECON | [place] [id number] | | + + + + + | Eliza Goodwin | ECON | Unknown | | + + + + + Care Team Providers + +------+ + | Care Shake Table Operator Name | Role | Phone | + +------+ + | Irving Rebolledo MD | PCP | | + +------+ + Reason for Visit Auth/Cert +--------+--------+ + + + + | Status | Reason | Specialty | Diagnoses / | Referred By | Referred To | | | | | Procedures | Contact | Contact | +--------+--------+ + + + + | | | | Diagnoses | | | | | | | elevated | | | | | | | troponin | | | +--------+--------+ + + + + Encounter Details +--------+ + + + + | Date | Type | Department | Care Team | Description | +--------+ + + + + | 06/12/ | Hospital | [facility] | Javad Heart MD | Cellulitis of | | 2019 - | Encounter | [facility] SUR[facility] | [address] | scrotum (Primary | | | | [address] | [place] | Dx); Cellulitis of | | 06/16/ | | [place] [id number] | [id number] | other specified site | | 2020 | | [phone] | | | +--------+ + + + + Social History + [...] recent travel history available. | + + documented as of this encounter Last Filed Vital Signs + + + [...] | | + + + + + documented in this encounter Discharge Summaries Jaison Araujo MD - 06/17/2019 11:57 AM PDT [facility] DISCHARGE SUMMARY Pt. Name/Age/: Vidhi Shaikh 78 y.o. 1940 Date of Admission: 06/13/2019 Date of Discharge: 06/17/2019 Admitting Physician: Javad Heart MD Primary Care Provider: Irving Rebolledo MD Discharging Physician: Jaison Araujo MD DISCHARGE DIAGNOSES: 1. Cellulitis of the scrotum with ESBL Klebsiella identified on urine culture 2. Chest pain with acute coronary syndrome ruled out this admission by stress testing 3. Longstanding type 2 diabetes mellitus the patient reporting greater than 40 years durat ion 4. 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 Bilateral lower extremity numbness and weakness, longstanding with the patient reportin g using a walker beginning in 1977 initially with right leg weakness greater than left patie nt reporting nonambulatory status for a number of years. 6. Morbid obesity with BMI of 52 7. CKD,stage 3 DISCHARGE MEDICATIONS: Discharge Medications New Medications Details dextrose 50% solution Inject 25-50 mLs into the vein as needed for Low Blood Sugar. enoxaparin 40 mg/0.4 mL injection Inject 0.4 mLs under the skin every 24 hours. aka: LOVENOX Start: June 18, 2019 ertapenem (INVanz) IVPB (custom dose) 1 g Inject 1 g into the vein every 24 hours. Indications: Klebsiella pneumoniae, ESBL UTI Start: June 18, 2019 insulin glargine 100 units/mL injection (pen) Inject 10 Units under the skin every evening. aka: LANTUS SOLOSTAR insulin lispro 100 units/mL injection (pen) Inject 0-12 Units under the skin 4 times daily (with meals and nightly). aka: humaLOG KWIKPEN lactobacillus GG capsule Take 1 capsule by mouth 2 times daily. metoprolol tartrate 25 mg tablet Take 1 tablet by mouth 2 times daily. aka: LOPRESSOR nystatin [id number] UNIT/GM powder Cleanse creases and scrotal area and apply powder following cleansing twice daily aka: MYCOSTATIN Changed Medications Details furosemide 40 mg tablet Take 1 tablet by mouth 2 times daily. What changed: medication strength how much to take when to take this aka: LASIX Unchanged Medications Details acetaminophen 325 mg tablet Take 325-650 mg by mouth every 4 hours as needed for Pain. aka: TYLENOL aspirin 81 mg EC tablet Take 81 mg by mouth Daily. atorvaSTATin 80 MG tablet Take 80 mg by mouth nightly. aka: LIPITOR ergocalciferol 1.25 mg (50,000 units) capsule Take 1.25 mg by mouth Once a week. aka: VITAMIN D2 Discontinued Medications glipiZIDE 10 mg ER tablet aka: GLUCOTROL XL potassium chloride 10 MEQ ER tablet aka: KLOR-CON DISCHARGE INSTRUCTIONS: RESULTS: TTE Conclusion 1. Normal left ventricular size with a mild to moderate concentric left ventricular hypert rophy. Preserved left ventricular systolic function. LVEF is 55%. 3. Grade 1 left ventricular diastolic dysfunction. 3. Normal valvular structure. 4. Normal right-sided pressure. 5. Normal IVC with a normal respiratory collapse. NM Nuclear Stress Test (Vasodilator) External Result Report Final Impression/Recommendation 1. Pharmacologic stress notable for baseline abnormal ECG without diagnostic changes post stress. 2. Normal LV size with LVEF calculated at 35% post stress by SPECT imaging. 3. Perfusion images notable for suboptimal technical quality due to soft tissue attenuatio n, without any obvious significant reversible abnormalities noted. Culture, Urine Order: [id number] Status: Final result Visible to patient: No (Not Released) Next appt: None Specimen Information: Urine, Clean Catch Culture Result 50,000 CFU/ml Klebsiella pneumoniae, ESBL *INFECTION PREVENTION ALERT - ESBL* ESBLs are enzymes that mediate resistance to ext ended-spectrum (third generation) cephalosporins (e.g.,ceftazidime, cefotaxime, (aztreonam ) but do not affect cephamycins(cefoxitin and cefotetan) orcarbapenems (e.g.,meropenem or im ipenem). Patients who are identified with these organisms should be placed into CONTACT PREC AUTIONS. Resulting Agency: [facility] Susceptibility Klebsiella pneumoniae, ESBL Not Specified Cefazolin >=64 ug/mL Resistant Cefoxitin 32 ug/mL Resistant Ceftazidime Resistant Ceftriaxone >=64 ug/mL Resistant Ciprofloxacin >=4 ug/mL Resistant Ertapenem <=0.5 ug/mL Sensitive Gentamicin >=16 ug/mL Resistant Meropenem <=0.25 ug/mL Sensitive Nitrofurantoin 128 ug/mL Resistant Piperacillin + Tazobactam 64 ug/mL Intermediate Tobramycin >=16 ug/mL Resistant Trimethoprim + Sulfamethoxazole >=320 ug/mL Resistant Specimen Collected: 06/13/19 18:16 Last Resulted: 06/15/19 11:03 Results for VIDHI SHAIKH ( ) as of 06/17/2019 10:41 Ref. Range 06/16/2019 04:51 WBC Latest Ref Range: 4.0 - 11.0 K/uL 7.6 RBC COUNT Latest Ref Range: 4.30 - 5.70 M/uL 4.57 Total Hemoglobin Latest Ref Range: 13.5 - 18.0 g/dL 14.1 Hematocrit Latest Ref Range: 40.0 - 51.0 % 43.8 MCV Latest Ref Range: 83.0 - 101.0 fL 95.8 MCH Latest Ref Range: 28.0 - 35.0 pg 30.9 MCHC Latest Ref Range: 32.0 - 36.0 g/dL 32.2 RDW-CV Latest Ref Range: <15.0 % 13.6 RDW-SD Latest Ref Range: 35.1 - 46.3 fL 48.5 (H) Platelet Count Latest Ref Range: 140 - 440 K/uL 222 Results for VIDHI SHAIKH ( ) as of 06/17/2019 10:41 Ref. Range 06/13/2019 19:20 06/13/2019 23:57 06/14/2019 04:27 Troponin I Latest Ref Range: <0.06 ng/mL 0.02 0.02 0.02 Results for VIDHI SHAIKH ( ) as of 06/17/2019 10:41 Ref. Range 06/13/2019 19:20 B-TYPE NATRIURETIC PEPTIDE Latest Ref Range: <100 pg/mL 63 Results for VIDHI SHAIKH ( ) as of 06/17/2019 10:41 Ref. Range 06/13/2019 19:20 Na Latest Ref Range: 136 - 145 mmol/L 137 K Latest Ref Range: 3.4 - 5.1 mmol/L 4.1 Chloride Latest Ref Range: 98 - 107 mmol/L 102 Carbon dioxide Latest Ref Range: 20 - 31 mmol/L 29 Anion Gap Latest Ref Range: 3 - 16 mmol/L 6 Glucose Latest Ref Range: 60 - 106 mg/dL 121 (H) BUN Latest Ref Range: 9 - 23 mg/dL 36 (H) Creatinine Latest Ref Range: 0.70 - 1.30 mg/dL 1.43 (H) BUN/Creatinine Ratio Unknown 25.2 Albumin Latest Ref Range: 3.2 - 4.8 g/dL 3.6 Albumin/Globulin Ratio Latest Ref Range: 0.8 - 1.9 1.4 Total Protein Latest Ref Range: 5.7 - 8.2 g/dL 6.1 EGFR IF NOT Latest Ref Range: >=60 mL/min/1.73m2 48 (L) Calcium Latest Ref Range: 8.7 - 10.4 mg/dL 8.8 Magnesium Latest Ref Range: 1.6 - 2.6 mg/dL 1.9 ALK PHOS Latest Ref Range: 46 - 116 U/L 72 ALT (SGPT) (REF) Latest Ref Range: 10 - 49 U/L 9 (L) AST (SGOT) (REF) Latest Ref Range: 0 - 34 U/L 13 Bilirubin Total (Calculated) Latest Ref Range: 0.3 - 1.2 mg/dL 0.5 Bilirubin, Direct Latest Ref Range: 0.00 - 0.30 mg/dl 0.20 Globulin Latest Ref Range: 2.1 - 3.8 g/dL 2.5 Lipase Latest Ref Range: 12 - 53 U/L 43 PROCALCITONIN Latest Ref Range: <=0.50 ng/mL 0.17 CRP Latest Ref Range: <10.00 mg/L 104.40 (H) Results for VIDHI SHAIKH ( ) as of 06/17/2019 10:41 Ref. Range 06/16/2019 04:51 Na Latest Ref Range: 136 - 145 mmol/L 138 K Latest Ref Range: 3.4 - 5.1 mmol/L 4.1 Chloride Latest Ref Range: 98 - 107 mmol/L 100 Carbon dioxide Latest Ref Range: 20 - 31 mmol/L 33 (H) Anion Gap Latest Ref Range: 3 - 16 mmol/L 5 Glucose Latest Ref Range: 60 - 106 mg/dL 124 (H) BUN Latest Ref Range: 9 - 23 mg/dL 31 (H) Creatinine Latest Ref Range: 0.70 - 1.30 mg/dL 1.30 BUN/Creatinine Ratio Unknown 23.8 Albumin Latest Ref Range: 3.2 - 4.8 g/dL 3.6 Albumin/Globulin Ratio Latest Ref Range: 0.8 - 1.9 1.4 Total Protein Latest Ref Range: 5.7 - 8.2 g/dL 6.1 EGFR IF NOT Latest Ref Range: >=60 mL/min/1.73m2 54 (L) Calcium Latest Ref Range: 8.7 - 10.4 mg/dL 9.3 Tommie Nava MD Physician Urology Consults Signed Date of Service: 06/14/19637 Creation Time: 06/14/19637 []Hide copied text []Gaudenciover for details [facility] UROLOGY CONSULTATION NOTE PRIMARY CARE PHYSICIAN: No Physician on file PATIENT NAME: Vidhi Shaikh : 1940 TODAY'S DATE: 06/14/2019 IMPRESSION: 1. Scrotal cellulitis without necrosis or subcutaneous air 2. Morbid obesity limiting toileting habits 3. History of nephrolithiasis PLAN: 1. No surgical procedure is indicated at this time. Cleansing of scrotum and deep inguinal creases twice daily recommended. 50-minute counseling process CHIEF COMPLAINT: Scrotal cellulitis HISTORY OF PRESENT ILLNESS: I was asked by Dr. Heart to see Vidhi Shaikh. This 78-year old male is received in transfer from [place] with scrotal cellulitis an d concern for acute NE. The patient is an extremely poor historian. He is aware of at leas t 1 prior episode of cellulitis. Several years ago he underwent ureteroscopic treatment of a stone. He suggested he voids only twice a day and possibly once at night with urinary inc ontinence, partially based on his limited ability to move from his morbid obesity. Smith ca theter was placed at [facility]. Noncontrast CT yesterday does not demonstrate abnormality of the testes or soft tissue air collections around the genitalia. PAST MEDICAL HISTORY STROKE TWICE, MYOCARDIAL INFARCTION ONCE PAST SURGICAL HISTORY Ureteroscopy with stone extraction MEDICATIONS Prior to Admission medications Not on File ALLERGIES Allergies Allergen Reactions Penicillins Unknown Codeine Anxiety FAMILY HISTORY family history is not on file. SOCIAL HISTORY He quit use of marijuana prior to 1976. He quit alcohol abuse and smoking in 1976. He is homeless. He drinks 3 to 4 cups of coffee daily. REVIEW OF SYSTEMS He has been using a walker but ability to move is very limited. He cannot specify frequenc y of bowel movements. Indicates stroke twice and myocardial infarction once. He has decrea sed sensation in all extremities. He denies gastric ulcer, hepatitis. PHYSICAL EXAM Temp: 36.1 C (97 F) BP: 114/62 Pulse: 72 Resp: 20 SpO2: 90 % on Wt. Admission: Weight: (!) 162.7 kg (358 lb 11 oz) GENERAL: Morbidly obese man in bed who appears slightly toxic with slower speech and wander ing gaze. NEURO: Responding appropriately to questions with clear speech CV: PULM: Nonlabored breathing ABD: Substantially obese. No inguinal rash. Right inferior buttock has two duoderm dressi ngs. EXT: Legs erythematous and minimally edematous. Upper extremities without edema or erythem a : Substantial scrotal edema and erythema. The mid posterior scrotal skin has a 4 mm area of abrasion but no necrosis or discharge. Penis engulfed and glans is palpably normal. Diagnostic Studies: Laboratory studies and imaging were personally reviewed by me. Chemistry: Lab Results Component Value Date NA 137 06/14/2019 K 3.8 06/14/2019 CO2 31 06/14/2019 BUN 36 06/14/2019 CREA 1.43 06/14/2019 GLU 127 06/14/2019 Hematology: Lab Results Component Value Date HGB 13.4 06/14/2019 HCT 40.6 06/14/2019 WBC 7.2 06/14/2019 URINE: 2-5 wbc, 0-2 rbc, 5-10 epith, culture pending Electronically Signed by: Tommie Nava MD, 06/14/2019 6:38 AM [facility] HOSPITAL COURSE: Please refer to the H&P for full details. In short this 78-year-old male with longstanding type 2 diabetes mellitus transferred from [facility] concern because of mild elevation troponin and complaints of chest discomfort. In addition he had evidence of signi ficant scrotal cellulitis with concern about the possibility of Radames's gangrene developi ng. Patient on admission was initiated on broad-spectrum antibiotics including vancomycin a nd meropenem. He was seen in consultation by Dr. Naav from urology and not felt to have F ournier's gangrene but require aggressive medical management. Urine culture was positive fo r a ESBL Klebsiella and regimen was reduced to ertapenem daily. Cardiac enzymes were obtained and negative for ischemia. The patient is a poor historian b ut has significant risk factors for ischemic disease and stress testing was performed which showed no reperfusion abnormalities. He was started on metoprolol 25 mg twice daily, aspiri n 81 mg daily, and atorvastatin 80 mg daily. EF by nuclear medicine scanning appeared to be 35% but in discussion with cardiology they believe the echocardiogram showing 50 to 55% is the more accurate value. Underwent echocardiography to assess for pulmonary hypertension wh ich was not demonstrated given the amount of edema in his lower extremities he was started o n furosemide which she has tolerated. A CT scan of his pelvis did not show obstructive proc ess to impair venous or lymphatic drainage from his scrotum discussion with Dr. Nava he di d not recommend further assessment for etiology for his swollen scrotum. It has improved si gnificantly with antibiotic therapy. The patient mission reported longstanding nonambulatory status. His history waited but on the day of discharge he states he began using a walker 1978 was able to use this for a perio d of time but that for a number of years she has been essentially nonambulatory despite his walker. Of interest in 2017 he was admitted to the hospital had neurology and neurosurgery assessment at that time and had a diagnosis of left hemiparesis. He states his right side i s always been weaker than his left. He has a diagnosis of diabetic neuropathy but it is not clear as to whether or not this is a diagnosis of default or whether work-up has been perfo rmed. I did obtain a B12 level which is pending. The time of my exam deep tendon reflexes right leg were 1 in the gastrocs and patella, 0 in the left patella and 2 in the left gastro cs. Babinski's were downgoing and the patient had significant withdrawal to painful stimula tion. Knee extension strength was weak grade 4/5 in the left and 2/5 in the right. Dorsi a nd plantar flexion was less than 2/5. There was brisk withdrawal to plantar stimulation. Carole rose reports hyperesthesias when he has born weight on his feet in the past. I did advise the patient that it would be worthwhile to him the more worthwhile in the past that he be have a neurology evaluation as to the etiology of his progressive weakness. This is not an acute medical problem and he does not appear to have a spinal stenosis process thus I advised him this could be obtained either through the DC where he has been followed or as a outpatient i the [facility] which does have neurologist. Of note the patient was evaluated by a n eurologist in 2017. At the tme of discharge the patient will be transferred to the transitional care unit at [facility] for wound care of his scrotum and antibiotic therapy. PHYSICAL EXAM: Temp: 36.4 C (97.6 F), Pulse: 80, Resp: 20, BP: 134/84, SpO2 93 % on room air at flow r ate 1L/min Temp Min: 36.2 C (97.2 F) Max: 36.6 C (97.8 F) Weight: (!) 162.7 kg (358 lb 11 oz) Patient seen and examined by me on discharge day Greater than 30 minutes were spent on discharge and coordination of post-hospital care. Electronically signed by: Jaison Araujo MD, 06/17/2019 11:57 AM [facility] Portions of this chart may have been created with WellFX voice recognition software. Occasi onal wrong-word or sound-alike substitutions may have occurred due to the inherent strickland itations of voice recognition software. Please read the chart carefully and recognize, using context, where these substitutions have occurred documented in this encounter Medications at Time of Discharge + + + +---------+ + + | Medication | Sig | Dispensed | Refills | Start | End Date | | | | | | Date | | + + + +---------+ + + | acetaminophen | Take 325-650 mg by | | 0 | | | | (TYLENOL) 325 mg | mouth every 4 hours | | | | | | tablet | as needed for Pain. | | | | | + + + +---------+ + + | aspirin 81 mg EC | Take 81 mg by mouth | | 0 | | | | tablet | Daily. | | | | | + + + +---------+ + + | atorvaSTATin | Take 80 mg by mouth | | 0 | | | | (LIPITOR) 80 MG | nightly. | | | | | | tablet | | | | | | + + + +---------+ + + | dextrose 50% | Inject 25-50 mLs | | 0 | 05/01/20 | | | solution | into the vein as | | | 20 | | | | needed for Low Blood | | | | | | | Sugar. | | | | | + + + +---------+ + + | enoxaparin | Inject 0.4 mLs under | 14 | 0 | 05/02/20 | | | (LOVENOX) 40 mg/0.4 | the skin every 24 | Syringe | | 20 | | | mL injection | hours. | | | | | + + + +---------+ + + | ergocalciferol | Take 1.25 mg by | | 0 | | | | (VITAMIN D2) 1.25 mg | mouth Once a week. | | | | | | (50,000 units) | | | | | | | capsule | | | | | | + + + +---------+ + + | ertapenem (INVanz) | Inject 1 g into the | 10 each | 0 | 06/18/19 | | | IVPB (custom dose) | vein every 24 hours. | | | 20 | | | 1 gIndications: | Indications: | | | | | | Klebsiella | Klebsiella | | | | | | pneumoniae, ESBL UTI | pneumoniae, ESBL UTI | | | | | + + + +---------+ + + | furosemide (LASIX) | Take 1 tablet by | 60 | 0 | 06/17/19 | | | 40 mg tablet | mouth 2 times daily. | tablet | | 20 | | + + + +---------+ + + | insulin glargine | Inject 10 Units | 1 pen | 0 | 06/17/19 | | | (LANTUS SOLOSTAR) | under the skin every | | | 20 | | | 100 units/mL | evening. | | | | | | injection (pen) | | | | | | + + + +---------+ + + | insulin lispro | Inject 0-12 Units | 1 pen | 0 | 06/17/19 | | | (HUMALOG KWIKPEN) | under the skin 4 | | | 20 | | | 100 units/mL | times daily (with | | | | | | injection (pen) | meals and nightly). | | | | | + + + +---------+ + + | lactobacillus GG | Take 1 capsule by | | 0 | 06/17/19 | | | (CULTURELLE) capsule | mouth 2 times daily. | | | 20 | | + + + +---------+ + + | metoprolol | Take 1 tablet by | 60 | 0 | 06/17/19 | | | tartrate (LOPRESSOR) | mouth 2 times daily. | tablet | | 20 | | | 25 mg tablet | | | | | | + + + +---------+ + + | nystatin | Cleanse creases and | | 0 | 06/17/19 | | | (MYCOSTATIN) [id number] | scrotal area and | | | 20 | | | UNIT/GM powder | apply powder | | | | | | | following cleansing | | | | | | | twice daily | | | | | + + + +---------+ + + documented as of this encounter Progress Notes Jaison Araujo MD - 06/16/2019 4:40 PM PDT [facility] Hospitalist Progress Note Vidhi Shaikh is a 78 y.o. male ASSESSMENT and PLAN: Active Hospital Problems Cellulitis of scrotum Urine positive for a ESBL Klebsiella sensitive only to carbapenums. Given the extent of ce llulitis the plan will be to give a 10 to 14-day course of ertapenem which will convert to t omorrow a.m. for ease of administration once daily. Continue topical care of the area of ed barb. Chronic scrotal edema Edema is limited principally to the scrotum i.e. there is not other diffuse anasarca. Ech ocardiogram does not suggest pulmonary hypertension and CT of the pelvis reviewed with radio logy does not show a obstructive process in the pelvis involving venous drainage or lymphati cs to explain the amount of edema currently present. Is on furosemide 20 mg IV twice daily which he is tolerating currently down -7.8 L with maintained renal function. Chest pain Patient mentation clearer today. He reports years ago he had a small heart attack that not sherie has occurred subsequently. He denies chest pain to me albeit was complaining of chest pain in the ER at [facility] by report. Enzymes here have been normal. Echocardiogram shows normal left ventricular function and we are maximizing medical therapy with statin 80 mg daily, aspirin 81 mg daily, and will initiate metoprolol 25 mg twice daily. He has sign ificant risk factors for ischemic heart disease including history of smoking, 2 diabetes whi ch is longstanding with peripheral neuropathy, and previous CVA. Patient currently is 348 p ounds and as such we will plan on pharmacologic stress testing to optimize medical therapy a nd assist in patient management prior to discharge. He is not a candidate for exercise stre ss testing and not currently have criteria to undergo angiography. Hyperglycemia Continue to moderate blood sugars, currently 116-228 today. SUBJECTIVE: Reports he is feeling improved relative to scrotal discomfort. Reports a remote history of chest pain with small heart attack but does not recall recent episode. VITALS: Temp: 36.5 C (97.7 F), Pulse: 78, Resp: 22, BP: 153/86, SpO2 91 % on room air at flow r ate 1L/min Temp Min: 36.1 C (97 F) Max: 36.8 C (98.3 F) Weight: (!) 162.7 kg (358 lb 11 oz) Intake/Output Summary (Last 24 hours) at 06/16/2019 1640 Last data filed at 06/16/2019 1516 Gross per 24 hour Intake 1230 ml Output 4300 ml Net -3070 ml PHYSICAL EXAM: General: NAD Cardiovascular: Regular rate and rhythm Respiratory: Clear bilaterally Abdomen: Soft without masses noted. Extremities: Trace pedal edema : Scrotal swelling with erythema. Decrease in tenderness and induration of the skin to p alpation. DIAGNOSTIC STUDIES: Available data and images were reviewed personally. Significant results and findings are a ddressed here or in the Assessment and Plan. Lab Results Component Value Date HGB 14.1 06/16/2019 HCT 43.8 06/16/2019 PLT 222 06/16/2019 WBC 7.6 06/16/2019 Lab Results Component Value Date NA 138 06/16/2019 K 4.1 06/16/2019 CL 100 06/16/2019 CO2 33 (H) 06/16/2019 CREA 1.30 06/16/2019 BUN 31 (H) 06/16/2019 MG 2.1 06/15/2019 CRP 104.40 (H) 06/13/2019 BNP 63 06/13/2019 Glucose, POC Date/Time Value Ref Range Status 06/16/2019 12:19 PM 228 (H) 70 - 109 mg/dL Final 06/16/2019 06:03 AM 116 (H) 70 - 109 mg/dL Final 06/15/2019 09:13 PM 148 (H) 70 - 109 mg/dL Final Glucose, POC Date/Time Value Ref Range Status 06/16/2019 12:19 PM 228 (H) 70 - 109 mg/dL Final 06/16/2019 06:03 AM 116 (H) 70 - 109 mg/dL Final 06/15/2019 09:13 PM 148 (H) 70 - 109 mg/dL Final No results found. Total time of approximately 25 minutes was spent with the patient and/or patient's family, and/or on the patient's floor/unit, of which more than 50% was spent counseling and/or coord ination the patient's care as outlined above. Jaison Araujo MD 06/16/2019 4:40 PM [facility] Portions of this chart may have been created with Well[employer] voice recognition software. Occasi onal wrong-word or sound-alike substitutions may have occurred due to the inherent strickland itations of voice recognition software. Please read the chart carefully and recognize, using context, where these substitutions have occurred Paula Sebastian, Pharm D - 06/16/2019 11:06 AM PDT PHARMACY SERVICES: ADMISSION MEDICATION REVIEW Vidhi Shaikh is a 78 y.o. male admitted on 06/13/2019. Patient is somewhat a reliable historian. Location of Patient when reviewed: MEDICAL FLOOR Patient s prior to admit medication and over the counter (OTC) medications/herbal supplem ents list obtained from: X Verbal interview with patient who was ABLE TO RECALL MOST name, strength, and directions X Doctor's office: [facility] Pharmacy list names: [facility] ([place]) [facility] ([place]) Vaccines up to date? Influenza Yes Pneumococcal Yes Tdap Yes Shingles No Noted medications discrepancies or medication-related issues: Medication added: Medication: Prior to Admission Sig: Patient taking differently as: Acetaminophen 325 mg tablet Take 1 to 2 tablets by mouth every 4 hours as needed for pain Aspirin 81 mg EC tablet Take 1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 -500 ml Temp: [36.4 C (97.5 F)-37 C (98.6 F)] 36.4 C (97.5 F) Pulse: [70-79] 70 Resp: [20] 20 BP: (97-118)/(54-64) 114/64 Recent Labs Lab 06/13/19 1920 WBC 9.0 CREA 1.43* PROCALCITONI 0.17 CRP 104.40* Imagin/27 CT pelvis - Scrotal enlargement. The scrotum is incompletely visualized on this stud y. No soft tissue gas to suggest Radames's gangrene. Date Time of Vancomycin draw Vancomycin result LEVEL or TROUGH Serum Creatinine CrCl (mL/mi n) Vanco load/bolus Vanco dose - current Vanco dose - new 06/12 -- -- -- 1.3/1.43 72/66 2500 mg (given @ [facility]) -- 750 mg q12hr 06/13 1400 level Assessment: Vancomycin Day # 1 Other antibiotics: meropenem, clindamycin Target Trough: 13-17 mcg/mL for possible Radames's gangrene WBC: wnl; Renal: mild avni, Estimated Creatinine Clearance: 66 mL/min (A) (based on SCr o f 1.43 mg/dL (H)). baseline scr ~1.1-1.3; Temp: afebrile; Lactate: nml; PCT: 0.17 (nml); CRP : 104 (H); Culture: 06/11 bcx (from [facility]) pending, urine cx pending; VS: VSS, RA Renal function: UOP: Current urine output .3 ml/kg/hr - need more data for accurate asse ssment Dosing based on adj bw of 107.5 kg Patient did not receive contrast dye Will draw level early, before 3rd dose, in light of age, avni, risk for accumulation w/ B NE >50, and loading dose >2 grams Plan: 1. Vancomycin load of 2500 mg (~23 mg/kg) IVPB x 1 given on 06/13/2019 @ ~1200, followed by maintenance vancomycin 750 mg IVPB q12h 2. Vancomycin level ordered for 06/14/2019 @ 1400 (draw 60 minutes prior to hanging the 3rd dose) 3. Serum creatinine DAILY for first 3 days, then at least every 3 days while on vancomycin. 4. Will monitor renal function, clinical status, infection markers daily with troughs and d ose adjustment as needed. Definitions: For the purpose of this protocol, "trough" means a steady state trough before the 4th dose of the initial/new dosing regimen and "level" means all other levels drawn including before the 3rd dose References: Vancomycin dosing protocol IDSA guidelines Procalcitonin Algorithm Per P&T-approved Vancomycin Dosing and Monitoring Protocol Electronically signed by: Misael Anthony PharmD 06/14/2019 2:48 AM documented in this encounter Plan of Treatment + + +--------+ + + | Name | Type | Priori | Associated Diagnoses | Order Schedule | | | | ty | | | + + +--------+ + + | Oxygen Therapy | Respiratory | Routin | | Until Discontinued | | | Care | e | | until discontinued | | | | | | starting 06/13/2019 | + + +--------+ + + | RT communication: | Respiratory | Routin | | One Time for 1 | | Titrate oxygen at or | Care | e | | Occurrences starting | | >92%, oximetry | | | | 06/14/2019 until | | Qshift | | | | 06/14/2019 | + + +--------+ + + | Vitamin B-12 | Lab | Routin | | One Time for 1 | | | | e | | Occurrences starting | | | | | | 06/17/2019 until | | | | | | 06/17/2019 | + + +--------+ + + documented as of this encounter Procedures + +--------+ + + + | [...] section. | + +--------+ + + + documented in this encounter Results POC Glucose (06/17/2019 11:44 AM PDT) + +---------+ + + + | Component | Value | Ref Range | Performed | Pathologist | | | | | At | Signature | + +---------+ + + + | Glucose, | 124 (H) | 70 - 109 mg/dL | [facility] | | | POC | | | [facility] | | [...] + + | [facility] | [address] | [place] | [phone] | | [facility] | | [address] | | | - LABORATORY | | [...] | | | + +---------+ + + POC Glucose (06/17/2019 6:31 AM PDT) + +---------+ + + + | Component | Value | Ref Range | Performed | Pathologist | | | | | At | Signature | + +---------+ + + + | Glucose, | 140 (H) | 70 - 109 mg/dL | [facility] | | | POC | | | [...] [address] | [place] | [phone] | | [facility] | | [address] | | | - LABORATORY | | | | + + + + + POC Glucose (06/16/2019 8:46 PM PDT) + +---------+ + + + | Component | Value | Ref Range | Performed | Pathologist | | | | | At | Signature | + +---------+ + + + | Glucose, | 199 (H) | 70 - 109 mg/dL | [facility] | | | POC | | | [facility] | | [...] + | [facility] | [address] | [place] | [phone] | | [facility] | | [address] | | | - LABORATORY | | | | + + + + + POC Glucose (06/16/2019 5:34 PM PDT) + +---------+ + + + | Component | Value | Ref Range | Performed | Pathologist | | | | | At | Signature | + +---------+ + + + | Glucose, | 124 (H) | 70 - 109 mg/dL | [facility] | | | POC | | | [facility] | | [...] + | [facility] | [address] | [place] | [phone] | | [facility] | | [address] | | | - LABORATORY | | | | + + + + + POC Glucose (06/16/2019 12:19 PM PDT) + +---------+ + + + | Component | Value | Ref Range | Performed | Pathologist | | | | | At | Signature | + +---------+ + + + | Glucose, | 228 (H) | 70 - 109 mg/dL | [facility] | | | POC | | | [address] | [place] | [phone] | | [facility] | | [address] | | | - LABORATORY | | | | + + + + + POC Glucose (06/16/2019 6:03 AM PDT) + +---------+ + + + | Component | Value | Ref Range | Performed | Pathologist | | | | | At | Signature | + +---------+ + + + | Glucose, | 116 (H) | 70 - 109 mg/dL | [facility] | | | POC | | | [facility] | | [...] + | [facility] | [address] | [place] | [phone] | | [facility] | | [address] | | | - LABORATORY | | | | + + + + + Comprehensive Metabolic Panel (06/16/2019 4:51 AM PDT) + + + + + + | Component | Value | Ref Range | Performed | Pathologist | | | | | At | Signature | + + + + + + | Na | 138 | 136 - 145 | [facility] | | | | | mmol/L | [facility] | | | | | | MEDICAL | | | | | | CENTER - | | | | | | LABORATORY | | + + + + + + | K | 4.1 | 3.4 - 5.1 | [facility] | | | | | mmol/L | [facility] | | | | [...] not | 54 (L)Comment: | >=60 | [facility] | | | | GLOMERULAR FILTRATION | mL/min/1.73m2 | [facility] | | | GUAMANIAN | RATE,ESTIMATED | | MEDICAL | | | | mL/min/1.89d9Anmf than | | CENTER - | | [...] 3.6 | 3.2 - 4.8 g/dL | [facility] | | | | | | [facility] | | | | | | MEDICAL | | | | | | CENTER - | | | | | | LABORATORY | | + + + + + + | Bilirubin | 0.4 | 0.3 - 1.2 mg/dL | [facility] | | | Total | | | [facility] | | [...] [address] | [place] | [phone] | | [facility] | | [address] | | | - LABORATORY | | | | + + + + + CBC with Differential (06/16/2019 4:51 AM PDT) + + + + + + [...] | | | | | | [facility] | | | [...] | Neutrophils | | K/uL | [facility] | | | | | | MEDICAL | | | | | | CENTER - | | | | | | LABORATORY | | + + + + + + | Absolute | 1.47 | 0.60 - 3.20 | [facility] | | | Lymphocytes | | K/uL | [facility] | | | | | | MEDICAL | | | | | | CENTER - | | | | | | LABORATORY | | + + + + + + | Absolute | 0.67 | 0.00 - 1.00 | [facility] | | | Monocytes | | K/uL | [facility] | [...] + | [facility] | [address] | [place] | [phone] | | [facility] | | [address] | | | - LABORATORY | | | | + + + + + POC Glucose (06/15/2019 9:13 PM PDT) + +---------+ + + + | Component | Value | Ref Range | Performed | Pathologist | | | | | At | Signature | + +---------+ + + + | Glucose, | 148 (H) | 70 - 109 mg/dL | [facility] | | | POC | | | [facility] | | [...] [address] | [place] | [phone] | | [facility] | | [address] | | | - LABORATORY | | | | + + + + + POC Glucose (06/15/2019 5:33 PM PDT) + +---------+ + + + | Component | Value | Ref Range | Performed | Pathologist | | | | | At | Signature | + +---------+ + + + | Glucose, | 140 (H) | 70 - 109 mg/dL | [facility] | | | POC | | | [...] [address] | [place] | [phone] | | [facility] | | [address] | | | - LABORATORY | | | | + + + + + POC Glucose (06/15/2019 12:29 PM PDT) + +---------+ + + + | Component | Value | Ref Range | Performed | Pathologist | | | | | At | Signature | + +---------+ + + + | Glucose, | 137 (H) | 70 - 109 mg/dL | [facility] | | | POC | | | [facility] | | | [...] + | [facility] | [address] | [place] | [phone] | | [facility] | | [address] | | | - LABORATORY | | | | + + + + + POC Glucose (06/15/2019 6:18 AM PDT) + +---------+ + + + | Component | Value | Ref Range | Performed | Pathologist | | | | | At | Signature | + +---------+ + + + | Glucose, | 134 (H) | 70 - 109 mg/dL | [facility] | | | POC | | | [...] + | [facility] | [address] | [place] | [phone] | | [facility] | | [address] | | | - LABORATORY | | | | + + + + + Comprehensive Metabolic Panel (06/15/2019 5:06 AM PDT) + + + + + + | Component | Value | Ref Range | Performed | Pathologist | | | | | At | Signature | + + + + + + | Na | 139 | 136 - 145 | [facility] | | | | | mmol/L | [facility] | | | | | | MEDICAL | | | | | | CENTER - | | | | | | LABORATORY | | + + + + + + | K | 4.2 | 3.4 - 5.1 | [facility] | [...] + + + + | CO2 | 32 (H) | 20 - 31 mmol/L | [facility] | | | | | [facility] | | | | | | MEDICAL | | | | | | CENTER - | | | | | | LABORATORY | | + + + + + + | Anion Gap | 4 | 3 - 16 mmol/L | [facility] | | | | | | [facility] | | | | | | MEDICAL | | | | | | CENTER - | | | | | | LABORATORY | | + + + + + + | Glucose | 117 (H) | 60 - 106 mg/dL | [facility] | | | | | [facility] | | | | | | MEDICAL | | | | | | CENTER - | | | | | | LABORATORY | | + + + + + + | BUN | 33 (H) | 9 - 23 mg/dL | [facility] | | | | | | [facility] | | | | | | MEDICAL | | | | | | CENTER - | | | | | | LABORATORY | | + + + + + + | Creatinine | 1.32 (H) | 0.70 - 1.30 | [facility] | | | | | mg/dL | [facility] | | | | | | MEDICAL | | | | | | CENTER - | | | | | | LABORATORY | | + + + + + + | eGFR if not | 53 (L)Comment: | >=60 | [facility] | | | | GLOMERULAR FILTRATION | mL/min/1.73m2 | [facility] | | | GUAMANIAN | RATE,ESTIMATED | | MEDICAL | | | | mL/min/1.16q7Cryv than | | CENTER - | | [...] + + + + | Calcium | 9.1 | 8.7 - 10.4 | [facility] | | | | | mg/dL | [facility] | | | | | | MEDICAL | | | | | | CENTER - | | | | | | LABORATORY | | + + + + + + | Albumin | 3.7 | 3.2 - 4.8 g/dL | [facility] | | | | | | [facility] | | | | | | MEDICAL | | | | | | CENTER - | | | | | | LABORATORY | | + + + + + + | Bilirubin | 0.3 | 0.3 - 1.2 mg/dL | [facility] | | | Total | | | [facility] | | | | | | MEDICAL | | | | | | CENTER - | | | | | | LABORATORY | | + + + + + + | Total | 6.4 | 5.7 - 8.2 g/dL | [facility] | | | Protein | | | [facility] | | | | | | MEDICAL | | | | | | CENTER - | | | | | | LABORATORY | | + + + + + + | AST | 14 | 0 - 34 U/L | [facility] | | | | | | [facility] | | | | | | MEDICAL | | | | | | CENTER - | | | | | | LABORATORY | | + + + + + + | ALT | 9 (L) | 10 - 49 U/L | [facility] | | | | | | [facility] | | | | | | MEDICAL | | | | | | CENTER - | | | | | | LABORATORY | | + + + + + + | Alkaline | 72 | 46 - 116 U/L | [facility] | | | Phosphatase | | | [facility] | | | | | | MEDICAL | | | | | | CENTER - | | | | | | LABORATORY | | + + + + + + | Globulin | 2.7 | 2.1 - 3.8 g/dL | [facility] [...] + + + + | BUN/Creatin | 25.0 | | [facility] | | | ine [...] [address] | [place] | [phone] | | [facility] | | [address] | | | - LABORATORY | | | | + + + + + CBC with Differential (06/15/2019 5:06 AM PDT) + + + + + + | Component | Value | Ref Range | Performed | Pathologist | | | | | At | Signature | + + + + + + | WBC | 7.1 | 4.0 - 11.0 K/uL | [facility] | | | | | | [facility] | | | | | | MEDICAL | | | | | | CENTER - | | | | | | LABORATORY | | + + + + + + | RBC | 4.61 | 4.30 - 5.70 | [facility] | | | | | M/uL | [facility] | | | | | | MEDICAL | | | | | | CENTER - | | | | | | LABORATORY | | + + + + + + | Hemoglobin | 14.0 | 13.5 - 18.0 | [facility] | | | | | g/dL | [facility] | | | | | | MEDICAL | | | | | | CENTER - | | | | | | LABORATORY | | + + + + + + | Hematocrit | 45.0 | 40.0 - 51.0 % | [facility] | | | | | | [facility] | | | | | | MEDICAL | | | | | | CENTER - | | | | | | LABORATORY | | + + + + + + | MCV | 97.6 | 83.0 - 101.0 fL | [facility] | | | | | | [facility] | | | | | | MEDICAL | | | | | | CENTER - | | | | | | LABORATORY | | + + + + + + | MCH | 30.4 | 28.0 - 35.0 pg | [facility] | | | | | | [facility] | | | | | | MEDICAL | | | | | | CENTER - | | | | | | LABORATORY | | + + + + + + | MCHC | 31.1 (L) | 32.0 - 36.0 | [facility] | [...] + + + + | RDW-SD | 49.5 (H) | 35.1 - 46.3 fL | [facility] | | | | | | [facility] | | | | | | MEDICAL | | | | | | CENTER - | | | | | | LABORATORY | | + + + + + + | Platelet | 215 | 140 - 440 K/uL | [facility] [...] + + + + | % | 66.8 | 45.0 - 82.0 % | [facility] | | | Neutrophils | | | [facility] | | | | | | MEDICAL | | | | | | CENTER - | | | | | | LABORATORY | | + + + + + + | % | 18.7 (L) | 20.0 - 45.0 % | [facility] | | | Lymphocytes | | | [facility] | | | | | | MEDICAL | | | | | | CENTER - | | | | | | LABORATORY | | + + + + + + | % Monocytes | 8.2 | 4.0 - 12.0 % | [facility] | | | | | | [facility] | | | | | | MEDICAL | | | | | | CENTER - | | | | | | LABORATORY | | + + + + + + | % | 4.8 | 0.0 - 5.0 % | [facility] | | | Eosinophils | | | [facility] | | | | | | MEDICAL | | | | | | CENTER - | | | | | | LABORATORY | | + + + + + + | % Basophils | 0.6 | 0.0 - 1.0 % | [facility] | | | | | | [facility] | | | | | | MEDICAL | | | | | | CENTER - | | | | | | LABORATORY | | + + + + + + | % Immature | 0.9 (H)Comment: | 0.0 - 0.4 % | [facility] | | | Granulocyte | Preliminary studies have | | [facility] | | | s | indicated the IG% | | MEDICAL | | | | and/or IG# show promise | | CENTER - | | | | as an early indicator | | LABORATORY | | | | for infection. | | | | + + + + + + | Absolute | 4.71 | 1.80 - 8.50 | [facility] | | | Neutrophils | | K/uL | [facility] | | | | | | MEDICAL | | | | | | CENTER - | | | | | | LABORATORY | | + + + + + + | Absolute | 1.32 | 0.60 - 3.20 | [facility] | | | Lymphocytes | | K/uL | [facility] | | | | | | MEDICAL | | | | | | CENTER - | | | | | | LABORATORY | | + + + + + + | Absolute | 0.58 | 0.00 - 1.00 | [facility] | | | Monocytes | | K/uL | [facility] | | | | | | MEDICAL | | | | | | CENTER - | | | | | | LABORATORY | | + + + + + + | Absolute | 0.34 | 0.00 - 0.40 | [facility] | | | Eosinophils | | K/uL | [facility] | | | | | | MEDICAL | | | | | | CENTER - | | | | | | LABORATORY | | + + + + + + | Absolute | 0.04 | 0.00 - 0.10 | [facility] | | | Basophils | | K/uL | [facility] | | | | | | MEDICAL | | | | | | CENTER - | | | | | | LABORATORY | | + + + + + + | Absolute | 0.06 (H) | 0.00 - 0.03 | [facility] | | | Immature | | K/uL | [facility] | | | Granulocyte | | | MEDICAL | | | s | | | CENTER - | | | | | | LABORATORY | | + + + + + + | % nRBC | 0 | 0 - 2 per 100 | [facility] | | | | | WBCs | [facility] | | | | [...] + + | [facility] | [address] | [place] | [phone] | | [facility] | | [address] | | | - LABORATORY | | | | + + + + + Magnesium (06/15/2019 5:06 AM PDT) + +-------+ + + + | Component | Value | Ref Range | Performed | Pathologist | | | | | At | Signature | + +-------+ + + + | Magnesium | 2.1 | 1.6 - 2.6 mg/dL | [facility] | | | | [...] ST. | [address] | [place] | [phone] | | [facility] | | [address] | | | - LABORATORY | | | | + + + + + POC Glucose (06/14/2019 10:19 PM PDT) + +---------+ + + + | Component | Value | Ref Range | Performed | Pathologist | | | | | At | Signature | + +---------+ + + + | Glucose, | 123 (H) | 70 - 109 mg/dL | [facility] | | | POC | | | [facility] | | | | | | MEDICAL [...] + | [facility] | [address] | [place] | [phone] | | [facility] | | [address] | | | - LABORATORY | | | | + + + + + POC Glucose (06/14/2019 4:35 PM PDT) + +---------+ + + + | Component | Value | Ref Range | Performed | Pathologist | | | | | At | Signature | + +---------+ + + + | Glucose, | 171 (H) | 70 - 109 mg/dL | [...] + | [facility] | [address] | [place] | [phone] | | [facility] | | [address] | | | - LABORATORY | | [...] | | Last Dose | | | [facility] | | [...] + + | [facility] | [address] | [place] | [phone] | | [facility] | | [address] | | | - LABORATORY | | | | + + + + + POC Glucose (06/14/2019 11:51 AM PDT) + +---------+ + + + | Component | Value | Ref Range | Performed | Pathologist | | | | | At | Signature | + +---------+ + + + | Glucose, | 148 (H) | 70 - 109 mg/dL | [facility] | | | POC | | | [facility] | | | | | | MEDICAL [...] + | [facility] | [address] | [place] | [phone] | | [facility] | | [address] | | | - LABORATORY | | [...] | | | | | | n [employer] | | | | | + +--------+ [...] | | | + +---------+ + + POC Glucose (06/14/2019 6:41 AM PDT) + +---------+ + + + | Component | Value | Ref Range | Performed | Pathologist | | | | | At | Signature | + +---------+ + + + | Glucose, | 126 (H) | 70 - 109 mg/dL | [facility] | | | POC | | | [facility] | | [...] ST. | [address] | [place], [place] | [phone] | | [facility] | | [address] | | | - LABORATORY | | | | + + + + + Troponin I (06/14/2019 4:27 AM PDT) + + + + + + [...] | | | | | | [employer] | | | | | [address] | [place] | [phone] | | [facility] | | [address] | | | - LABORATORY | | | | + + + + + Magnesium (06/14/2019 4:27 AM PDT) + +-------+ + + + | Component | Value | Ref Range | Performed | Pathologist | | | | | At | Signature | + +-------+ + + + | Magnesium | 2.0 | 1.6 - 2.6 mg/dL | [facility] | | | | [...] + | [facility] | [address] | [place] | [phone] | | [facility] | | [address] | | | - LABORATORY | | | | + + + + + Basic Metabolic Panel (06/14/2019 4:27 AM PDT) + + + + + + [...] (H) | 9 - 23 mg/dL | [facility] | | | | | | [facility] | | | | | | MEDICAL | | | | | | CENTER - | | | | | | LABORATORY | | + + + + + + | Creatinine | 1.43 (H) | 0.70 - 1.30 | [facility] | | | | | mg/dL | [facility] | | | | | | MEDICAL | | | | | | CENTER - | | | | | | LABORATORY | | + + + + + + | eGFR if not | 48 (L)Comment: | >=60 | [facility] | | | | GLOMERULAR FILTRATION | mL/min/1.73m2 | [facility] | | | GU[facility]IAN | RATE,ESTIMATED | | MEDICAL | | | | mL/min/1.22h1Unkq than | | CENTER - | | [...] | ine Ratio | | | [facility] | | [...] ST. | [address] | [place], [place] | [phone] | | [facility] | | [address] | | | - LABORATORY | | | | + + + + + CBC no Differential (06/14/2019 4:27 AM PDT) + + + + + + [address] | [place] | [phone] | | [facility] | | [address] | | | - LABORATORY | | | | + + + + + ECG 12 lead (06/14/2019 3:13 AM PDT) + + + + + + [...] | | | | VALENCIA MARTINEZ MD ([id number]) | | | | | | on [...] | | | + +---------+ + + POC Glucose (06/14/2019 1:11 AM PDT) + +---------+ + + + | Component | Value | Ref Range | Performed | Pathologist | | | | | At | Signature | + +---------+ + + + | Glucose, | 145 (H) | 70 - 109 mg/dL | [facility] | | | POC | | | [...] + | [facility] | [address] | [place] | [phone] | | [facility] | | [address] | | | - LABORATORY | | | | + + + + + Troponin I (06/13/2019 11:57 PM PDT) + + + + + [...] | | | | | | [employer] | | | | | [...] ST. | [address] | [place] | [phone] | | [facility] | | [address] | | | - LABORATORY | | | | + + + + + CT Pelvis wo Contrast (06/13/2019 [...] report was sent by | | | [facility] with no significant discrepancy on 06/13/2019 11:17 [...] preliminary | | report was sent by [facility] with no significant discrepancyon 06/13/2019 11:17 | [...] | |A preliminary report was sent by [facility] with no significant discrepancy | |on 06/13/2019 [...] | | | + +---------+ + + POC Glucose (06/13/2019 9:06 PM PDT) + +---------+ + + + | Component | Value | Ref Range | Performed | Pathologist | | | | | At | Signature | + +---------+ + + + | Glucose, | 211 (H) | 70 - 109 mg/dL | [facility] | | | POC | | | [facility] | | | [...] + + | [facility] | [address] | [place] | [phone] | | [facility] | | [address] | | | - LABORATORY | | | | + + + + + Procalcitonin (06/13/2019 7:20 PM PDT) [...] | + + + + + | [facility] | [address] | [place] | [phone] | | [facility] | | [address] | | | - LABORATORY | | | | + + + + + C-Reactive Protein (06/13/2019 7:20 PM PDT) + + + + + + | Component | Value | Ref Range | Performed | Pathologist | | | | | At | Signature | + + + + + + | CRP | 104.40 (H) | <10.00 mg/L | [facility] | | | | | | [facility] [...] [address] | [place] | [phone] | | [facility] | | [address] | | | - LABORATORY | | [...] | | Time | | seconds | [facility] | | | | [...] ST. | [address] | [place], [place] | [phone] | | [facility] | | [address] | | | - LABORATORY | | [...] | | Direct | | mg/dl | [facility] | | | | | [...] + + | [facility] | [address] | [place] | [phone] | | [facility] | | [address] | | | - LABORATORY | | [...] New method in | <100 pg/mL | [facility] | | | | use as of April 14 | | [facility] | | | | 2018. Check reference [...] + | [facility] | [address] | [place] | [phone] | | [facility] | | [address] | | | - LABORATORY | | [...] in | 12 - 53 U/L | [facility] | | | | use as of April 14, | | [facility] | | | | 2019. Check reference | | MEDICAL | | [...] [address] | [place] | [phone] | | [facility] | | [address] | | | - LABORATORY | | | | + + + + + Magnesium (06/13/2019 7:20 PM PDT) + +-------+ + + + | Component | Value | Ref Range | Performed | Pathologist | | | | | At | Signature | + +-------+ + + + | Magnesium | 1.9 | 1.6 - 2.6 mg/dL | [facility] | | | | | | [facility] [...] + | [facility] | [address] | [place] | [phone] | | [facility] | | [address] | | | - LABORATORY | | | | + + + + + Basic Metabolic Panel (06/13/2019 7:20 PM PDT) + + + [...] + + + + | Cl | 102 | 98 - 107 mmol/L | [facility] | | [facility] | | | [facility] - | | | | | | LABORATORY | | + + + + + + | CO2 | 29 | 20 - 31 mmol/L | [facility] | | [facility] | [facility] | | | | | | [facility] - | | | | | | LABORATORY | | + + + + + + | Anion Gap | 6 | 3 - 16 mmol/L | [facility] | | [facility] | [facility] | | | | | | [facility] - | | | | | | LABORATORY | | + + + + + + | Glucose | 121 (H) | 60 - 106 mg/dL | [...] 1.43 (H) | 0.70 - 1.30 | [facility] | | | | | mg/dL | [facility] | | | | | | [facility] | | | | | | CENTER - | | | | | | LABORATORY | | + + + + + + | eGFR if not | 48 (L)Comment: | >=60 | [facility] | | | | GLOMERULAR FILTRATION | mL/min/1.73m2 | [facility] | | | [facility] | RATE,ESTIMATED | | MEDICAL | | | | mL/min/1.71c9Webh than | | CENTER - | | [...] + + + + | Calcium | 8.8 | 8.7 - 10.4 | [facility] | | | | | mg/dL | [facility] | | | | | | [facility] | | | | | | CENTER - | | | | | | LABORATORY | | + + + + + + | BUN/Creatin | 25.2 | | [facility] | | | ine Ratio | | | [facility] | | [...] [address] | [place] | [phone] | | [facility] | | [address] | | | - LABORATORY | | | | + + + + + CBC no Differential (06/13/2019 7:20 PM PDT) + + + + + + | Component | Value | Ref Range | Performed | Pathologist | | | | | At | Signature | + + + + + + | WBC | 9.0 | 4.0 - 11.0 K/uL | [facility] | | | | [facility] - | | | | | | LABORATORY | | + + + + + + | RBC | 4.35 | 4.30 - 5.70 | [facility] | | | | | M[facility]uL | [facility] | [facility] | [facility] - | | | | | | LABORATORY | | + + + + + + | Hemoglobin | 13.3 (L) | 13.5 - 18.0 | [facility] | | | | | g/dL | [facility] | [facility] | | | | | | [facility] - | | | | | | LABORATORY | | + + + + + + | Hematocrit | 41.6 | 40.0 - 51.0 % | [facility] | | | | | | [facility] | [facility] | | | [facility] - | | | | | | LABORATORY | | + + + + + + | MCV | 95.6 | 83.0 - 101.0 fL | [facility] | | | | | | [facility] | | [facility] | [facility] | | | | | | [facility] - | | | | | | LABORATORY | | + + + + + + | MCH | 30.6 | 28.0 - 35.0 pg | [facility] | | | | | | [facility] | | [facility] | [facility] | | | | | | [facility] - | | | | | | LABORATORY | | + + + + + + | MCHC | 32.0 | 32.0 - 36.0 | [facility] | | | | | g/dL | [facility] | | | | | | [facility] | | | | | | [facility] - | | | | | | LABORATORY | | + + + + + + | RDW-CV | 13.9 | <15.0 % | [facility] | | | | | | [facility] | | [facility] | [facility] | | | | | | [facility] - | | | | | | LABORATORY | | + + + + + + | RDW-SD | 49.1 (H) | 35.1 - 46.3 fL | [facility] | | | | | | [facility] | [facility] | | [facility] | [facility] | | | | | | [facility] - | | | | | | LABORATORY | | + + + + + + | Platelet | 195 | 140 - 440 K/uL | [facility] [...] | 0.00 | 0.00 - 0.01 | [facility] | | | [place] | | K/uL | [facility] | [...] [address] | [place] | [phone] | | [facility] | | [address] | | | - LABORATORY | | | | + + + + + Troponin I (06/13/2019 7:20 PM PDT) + + + [...] | | | | | | [employer] | | | | | [...] | + + + + + | [facility] | [address] | [place] | [phone] | | [facility] | | [address] | | | - LABORATORY | | | | + + + + + POC Glucose (06/13/2019 6:47 PM PDT) + +---------+ + + + | Component | Value | Ref Range | Performed | Pathologist | | | | | At | Signature | + +---------+ + + + | Glucose, | 141 (H) | 70 - 109 mg/dL | [facility] | | | POC | | | [facility] | | [...] | + + + + + | [facility] | [address] | [place], [place] | [phone] | | [facility] | | [address] | | | - LABORATORY | | [...] | | | | pneumoniae, | | [facility] | | | | ESBLComment: *INFECTION [...] [address] | [place] | [phone] | | [facility] | | [address] | | | - LABORATORY | | [...] ST. | [address] | [place] | [phone] | | [facility] | | [address] | | | - LABORATORY | | [...] - 1.030 | [facility] | | | [place], | | | [facility] | | [...] | | Epithelial | | | [facility] | | | Cells, | | | [...] | Comment | Indicated | | [facility] | | | [...] [address] | [place] | [phone] | | [facility] | | [address] | | | - LABORATORY | | | | + + + + + ECG 12 lead (06/13/2019 6:05 PM PDT) + + + + + + | Component | Value | Ref Range | Performed | Pathologist | | | | | At | Signature | + + + + + + | VENTRICULAR | 74 | BPM | [facility] | | | RATE EKG | | | | | + + + + + + | ATRIAL RATE | 74 | BPM | [facility] | | + + + + + + | P-R | 144 | ms | [facility] | | | INTERVAL | | | | | + + + + + + | QRS | 116 | ms | [facility] | | | DURATION | | | | | + + + + + + | Q-T | 432 | ms | [facility] | | | INTERVAL | | | | | + + + + + + | Q-T | 479 | ms | [facility] | | | INTERVAL | | | | | | (CORRECTED) | | | | | + + + + + + | P WAVE AXIS | 59 | degrees | [facility] | | + + + + + + | QRS AXIS | -40 | degrees | [facility] | | + + + + + + | T AXIS | 67 | degrees | [facility] | | + + + + + + | INTERPRETAT | Sinus rhythm with | | [facility] | | | ION TEXT | occasional premature | | | | | | ventricular | | | | | | complexesLeft axis | | | | | | deviationNonspecific | | | | | | intraventricular | | | | | | conduction delayLong | | | | | | QTcInferior infarct , | | | | | | age undeterminedAbnormal | | | | | | ECG Confirmed by | | | | | | VALENCIA MARTINEZ MD ([id number]) | | | | | | on 06/15/2019 6:14:20 AM | | | | + + [...] | | | + +---------+ + + documented in this encounter Visit Diagnoses + + | Diagnosis | + + | Cellulitis of scrotum - Primary Other inflammatory disorder of male genital organs | + + | Cellulitis of other specified site | + + documented in this encounter Administered Medications + +--------+ +--------+------+------+ | Medication Order | MAR | Action | Dose | Rate | Site | | | Action | Date | | | | + +--------+ +--------+------+------+ | acetaminophen (TYLENOL) tablet | Given | 06/14/19 | 650 mg | | | | 650 mg 650 mg, Oral, EVERY 4 | | 20 5:44 | | | | | HOURS PRN, Pain, Starting Mon | | PM PDT | | | | | 06/13/19 at 1834 | | | | | | + +--------+ +--------+------+------+ +-------+ +--------+---+---+ | Given | 06/14/19 | 650 mg | | | | | 20 8:05 | | | | | | AM PDT | | | | +-------+ +--------+---+---+ | Given | 06/13/19 | 650 mg | | | | | 20 6:45 | | | | | | PM PDT | | | | +-------+ +--------+---+---+ + +---+ | | | + +---+ | albuterol-ipratropium 2.5-0.5 | | | mg/3 mL nebulizer solution 3 mL | | | 3 mL, Nebulization, RT EVERY 4 | | | HOURS PRN, Shortness of Breath, | | | Starting 06/13/19 at 1923 | | + +---+ | | | + +---+ + +-------+ +-------+---+---+ | aspirin EC tablet 81 mg 81 mg, | Given | 06/17/19 | 81 mg | | | | Oral, DAILY, First dose on Thu | | 20 10:19 | | | | | 06/14/19 at 0900, Do not cut or | | AM PDT | | | | | crush., | | | | | | + +-------+ +-------+---+---+ +-------+ +-------+---+---+ | Given | 06/16/19 | 81 mg | | | | | 20 10:51 | | | | | | AM PDT | | | | +-------+ +-------+---+---+ | Given | 06/15/19 | 81 mg | | | | | 20 8:53 | | | | | | AM PDT | | | | +-------+ +-------+---+---+ +---+---+ | | | +---+---+ + +-------+ +-------+---+---+ | atorvaSTATin (LIPITOR) tablet | Given | 06/16/19 | 80 mg | | | | 80 mg 80 mg, Oral, NIGHTLY, | | 20 8:48 | | | | | First dose on 06/13/19 at 2100 | | PM PDT | | | | + +-------+ +-------+---+---+ +-------+ +-------+---+---+ | Given | 06/15/19 | 80 mg | | | | | 20 9:14 | | | | | | PM PDT | | | | +-------+ +-------+---+---+ | Given | 06/14/19 | 80 mg | | | | | 20 10:19 | | | | | | PM PDT | | | | +-------+ +-------+---+---+ + +---+ | | | + +---+ | dextrose 10% (D10W) infusion | | | at 50 mL/hr, Intravenous, | | | CONTINUOUS PRN, hypoglycemia, | | | Starting 06/13/19 at 1743, | | | Start infusion if unable to | | | maintain blood glucose greater | | | than 70 mg/dL after two rounds of | | | hypoglycemia treatment. Recheck | | | blood glucose 30 minutes after | | | starting D10W then at least | | | hourly and PRN until it is | | | discontinued. Call provider to | | | discuss parameters for D10W | | | discontinuation., | | + +---+ | | | + +---+ | dextrose 50% injection 12.5-25 | | | g 12.5-25 g, Intravenous, PRN, | | | Low Blood Sugar, Starting Mon | | | 06/13/19 at 1743, For blood | | | glucose 50-69 mg/dl - give 12.5 g | | | For blood glucose less than 50 | | | mg/dl - give 25 g, | | + +---+ | | | + +---+ + +-------+ +-------+---+ + | enoxaparin (LOVENOX) 40 mg/0.4 | Given | 06/17/19 | 40 mg | | Abdomen- | | mL injection 40 mg 40 mg, | | 20 10:20 | | | LUQ | | Subcutaneous, EVERY 24 HOURS | | AM PDT | | | | | (Daily), First dose on Tue | | | | | | | 06/14/19 at 0900 | | | | | | + +-------+ +-------+---+ + +-------+ +-------+---+ + | Given | 06/16/19 | 40 mg | | Abdomen- | | | 20 10:48 | | | LLQ | | | AM PDT | | | | +-------+ +-------+---+ + | Given | 06/15/19 | 40 mg | | Abdomen- | | | 20 8:53 | | | LLQ | | | AM PDT | | | | +-------+ +-------+---+ + +---+---+ | | | +---+---+ + +---------+ +-----+-------+---+ | ertapenem (INVanz) 1 g in | New Bag | 06/17/19 | 1 g | 120 | | | sodium chloride 0.9% 50 mL IVPB | | 20 10:39 | | mL/hr | | | 1 g, Intravenous, Administer over | | AM PDT | | | | | 30 Minutes, EVERY 24 HOURS | | | | | | | (Daily), First dose on Yudy | | | | | | | 06/16/19 at 0900, Keep in | | | | | | | refrigerator., Indications: | | | | | | | Klebsiella pneumoniae, ESBL UTI | | | | | | + +---------+ +-----+-------+---+ +---------+ +-----+-------+---+ | New Bag | 06/16/19 | 1 g | 120 | | | | 20 10:50 | | mL/hr | | | | AM PDT | | | | +---------+ +-----+-------+---+ +---+---+ | | | +---+---+ + +-------+ +-------+---+---+ | furosemide (LASIX) injection 20 | Given | 06/17/19 | 20 mg | | | | mg 20 mg, Intravenous, 2 TIMES | | 20 10:19 | | | | | DAILY 0800 & 1600, First dose on | | AM PDT | | | | | 06/14/19 at 1600 | | | | | | + +-------+ +-------+---+---+ +-------+ +-------+---+---+ | Given | 06/16/19 | 20 mg | | | | | 20 5:34 | | | | | | PM PDT | | | | +-------+ +-------+---+---+ | Given | 06/16/19 | 20 mg | | | | | 20 10:49 | | | | | | AM PDT | | | | +-------+ +-------+---+---+ +---+---+ | | | +---+---+ + +-------+ +---------+---+ + | insulin glargine (LANTUS | Given | 06/15/19 | 5 Units | | Leg-Left | | SOLOSTAR) injection (pen) 5 Units | | 20 9:28 | | | Upper | | 5 Units, Subcutaneous, DAILY | | PM PDT | | | | | EVENING, First dose on Mon | | | | | | | 06/13/19 at 1930, For subcutaneous | | | | | | | use only. Basal (long acting) | | | | | | | insulin., If NPO: Decrease dose, | | | | | | | by: 50% | | | | | | + +-------+ +---------+---+ + +-------+ +---------+---+ + | Given | 06/14/19 | 5 Units | | Arm-Left | | | 20 5:36 | | | Upper | | | PM PDT | | | | +-------+ +---------+---+ + +---+---+ | | | +---+---+ + +-------+ +---------+---+ + | insulin lispro (humaLOG | Given | 06/16/19 | 4 Units | | Abdomen- | | KWIKPEN) injection (pen) 0-12 | | 20 12:22 | | | RLQ | | Units 0-12 Units, Subcutaneous, | | PM PDT | | | | | 4 TIMES DAILY WITH MEALS & | | | | | | | NIGHTLY, First dose on Mon | | | | | | | 06/13/19 at 2100, CORRECTION | | | | | | | SCALE: Blood Glucose (BG) < | | | | | | | 150: None BG | | | | | | | 150-200: DAY: 2 units. NIGHT: | | | | | | | 0 units BG 201-250: DAY: 4 | | | | | | | units. NIGHT: 2 units BG | | | | | | | 251-300: DAY: 6 units. NIGHT: | | | | | | | 4 units BG 301-350: DAY: 8 | | | | | | | units. NIGHT: 6 units BG | | | | | | | 351-400: DAY: 10 units. NIGHT: 8 | | | | | | | units BG > 400 : DAY: 12 | | | | | | | units. NIGHT: 10 units | | | | | | | AND CALL PROVIDER | | | | | | | , Use DAY DOSE for doses | | | | | | | scheduled: AC, NPO, Daytime | | | | | | | 7009-3211 Use NIGHT DOSE for | | | | | | | doses scheduled: HS, | | | | | | | Nighttime 1600-0219 If the BG is | | | | | | | not checked before the patient | | | | | | | starts eating, do not give | | | | | | | correction insulin., | | | | | | + +-------+ +---------+---+ + +-------+ +---------+---+ + | Given | 06/14/19 | 2 Units | | Arm-Left | | | 20 5:35 | | | Upper | | | PM PDT | | | | +-------+ +---------+---+ + +---+---+ | | | +---+---+ + +-------+ +---------+---+---+ | lactobacillus GG (CULTURELLE) | Given | 06/17/19 | 1 | | | | capsule 1 capsule 1 capsule, | | 20 10:20 | capsule | | | | Oral, 2 TIMES DAILY, First dose | | AM PDT | | | | | on Thu06/13/19 at 2100, Do not | | | | | | | open or crush., | | | | | | + +-------+ +---------+---+---+ +-------+ +---------+---+---+ | Given | 06/16/19 | 1 | | | | | 20 8:48 | capsule | | | | | PM PDT | | | | +-------+ +---------+---+---+ | Given | 06/16/19 | 1 | | | | | 20 10:51 | capsule | | | | | AM PDT | | | | +-------+ +---------+---+---+ +---+---+ | | | +---+---+ + +-------+ +-------+---+---+ | metoprolol tartrate (LOPRESSOR) | Given | 06/17/19 | 25 mg | | | | tablet 25 mg 25 mg, Oral, 2 | | 20 10:20 | | | | | TIMES DAILY, First dose on Thu | | AM PDT | | | | | 06/15/19 at 2100 | | | | | | + +-------+ +-------+---+---+ +-------+ +-------+---+---+ | Given | 06/16/19 | 25 mg | | | | | 20 8:48 | | | | | | PM PDT | | | | +-------+ +-------+---+---+ | Given | 06/16/19 | 25 mg | | | | | 20 10:50 | | | | | | AM PDT | | | | +-------+ +-------+---+---+ + +---+ | | | + +---+ | nitroglycerin (NITROSTAT) SL | | | tablet 0.4 mg 0.4 mg, | | | Sublingual, EVERY 5 MIN PRN, | | | Chest pain, Starting 06/13/19 | | | at 1743, Maximum of 3 doses in 15 | | | minutes., | | + +---+ | | | + +---+ + +-------+ +---+---+---+ | nystatin (MYCOSTATIN) powder | Given | 06/17/19 | | | | | Topical, 3 TIMES DAILY, First | | 20 10:46 | | | | | dose on Thu06/15/19 at 2100, | | AM PDT | | | | | Sprinkle powder on affected | | | | | | | area., Apply to: Groin-Left, | | | | | | | Groin-Right, Sacrum/Coccyx | | | | | | + +-------+ +---+---+---+ +-------+ +---+---+---+ | Given | 06/16/19 | | | | | | 20 8:58 | | | | | | PM PDT | | | | +-------+ +---+---+---+ | Given | 06/16/19 | | | | | | 20 2:00 | | | | | | PM PDT | | | | +-------+ +---+---+---+ +---+---+ | | | +---+---+ +---+ | | +---+ + +--------+ +-------+------+------+ | Medication Order | MAR | Action | Dose | Rate | Site | | | Action | Date | | | | + +--------+ +-------+------+------+ | aspirin chewable tablet 81 mg | Given | 06/13/19 | 81 mg | | | | 81 mg, Oral, DAILY, First dose on | | 20 6:22 | | | | | 06/13/19 at 1800 | | PM PDT | | | | + +--------+ +-------+------+------+ +---+---+ | | | +---+---+ + +---------+ +--------+-------+---+ | clindamycin in dextrose | New Bag | 06/14/19 | 900 mg | 100 | | | (CLEOCIN) IVPB 900 mg 900 mg, | | 20 3:11 | | mL/hr | | | Intravenous, Administer over 30 | | PM PDT | | | | | Minutes, EVERY 8 HOURS (3 times | | | | | | | per day), First dose on Mon | | | | | | | 06/13/19 at 2200, Indications: | | | | | | | radames | | | | | | + +---------+ +--------+-------+---+ +---------+ +--------+-------+---+ | New Bag | 06/14/19 | 900 mg | 100 | | | | 20 8:00 | | mL/hr | | | | AM PDT | | | | +---------+ +--------+-------+---+ | New Bag | 06/13/19 | 900 mg | 100 | | | | 20 11:44 | | mL/hr | | | | PM PDT | | | | +---------+ +--------+-------+---+ +---+---+ | | | +---+---+ + +---------+ +--------+-------+---+ | meropenem (MERREM) 500 mg in | New Bag | 06/16/19 | 500 mg | 100 | | | sodium chloride 0.9% 50 mL IVPB | | 20 1:25 | | mL/hr | | | 500 mg, Intravenous, Administer | | AM PDT | | | | | over 30 Minutes, EVERY 6 HOURS | | | | | | | INTERVAL, First dose on Mon | | | | | | | 06/13/19 at 2100, For 9 doses, | | | | | | | Activate system and mix before | | | | | | | use., Indications: radames | | | | | | + +---------+ +--------+-------+---+ +---------+ +--------+-------+---+ | New Bag | 06/15/19 | 500 mg | 100 | | | | 20 6:14 | | mL/hr | | | | PM PDT | | | | +---------+ +--------+-------+---+ | New Bag | 06/15/19 | 500 mg | 100 | | | | 20 12:46 | | mL/hr | | | | PM PDT | | | | +---------+ +--------+-------+---+ +---+---+ | | | +---+---+ + +-------+ +---+---+---+ | nystatin (MYCOSTATIN) cream | Given | 06/15/19 | | | | | Topical, 2 TIMES DAILY, First | | 20 9:00 | | | | | dose on 06/13/19 at 2100, | | AM PDT | | | | | Apply to: Groin-Right, Groin-Left | | | | | | + +-------+ +---+---+---+ +-------+ +---+---+---+ | Given | 06/14/19 | | | | | | 20 10:26 | | | | | | PM PDT | | | | +-------+ +---+---+---+ | Given | 06/14/19 | | | | | | 20 8:06 | | | | | | AM PDT | | | | +-------+ +---+---+---+ +---+---+ | | | +---+---+ + +-------+ +-------+---+---+ | perflutren lipid microspheres | Given | 06/14/19 | 2 mLs | | | | (DEFINITY) injection 2 mL 2 mL, | | 20 7:55 | | | | | Intravenous, ONCE PRN, Other, | | AM PDT | | | | | Starting 06/14/19 at 0755, For | | | | | | | 1 dose, Echo | | | | | | + +-------+ +-------+---+---+ +---+---+ | | | +---+---+ + +-------+ +--------+---+---+ | regadenoson (LEXISCAN) | Given | 06/17/19 | 0.4 mg | | | | injection 0.4 mg 0.4 mg, | | 20 8:56 | | | | | Intravenous, ONCE PRN, per | | AM PDT | | | | | doctor, Starting Thu06/17/19 at | | | | | | | 0855, For 1 dose, Give IV push | | | | | | | over 10 seconds, then follow | | | | | | | immediately with 5 mL saline | | | | | | | flush., Nuclear Medicine | | | | | | + +-------+ +--------+---+---+ +---+---+ | | | +---+---+ + +-------+ + +---+---+ | technetium TC-99M sestamibi | Given | 06/17/19 | 10.4 | | | | (CARDIOLITE) injection 10.4 | | 20 8:55 | millicur | | | | millicurie 10.4 millicurie, | | AM PDT | ies | | | | Intravenous, ONCE PRN, Other, | | | | | | | Starting Thu06/17/19 at 0855, For | | | | | | | 1 dose, Nuclear Medicine | | | | | | + +-------+ + +---+---+ +---+---+ | | | +---+---+ + +-------+ + +---+---+ | technetium TC-99M sestamibi | Given | 06/17/19 | 33 | | | | (CARDIOLITE) injection 33 | | 20 9:47 | millicur | | | | millicurie 33 millicurie, | | AM PDT | ies | | | | Intravenous, ONCE PRN, Other, | | | | | | | Starting 06/17/19 at 0944, For | | | | | | | 1 dose, Nuclear Medicine | | | | | | + +-------+ + +---+---+ +---+---+ | | | +---+---+ + +---------+ +--------+--------+---+ | vancomycin 750 mg in sodium | New Bag | 06/14/19 | 750 mg | 257.5 | | | chloride 0.9% 250 mL IVPB 750 | | 20 4:30 | | mL/hr | | | mg, Intravenous, Administer over | | PM PDT | | | | | 60 Minutes, EVERY 12 HOURS (2 | | | | | | | times per day), First dose on Thu | | | | | | | 06/14/19 at 0315, Keep in | | | | | | | refrigerator., 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
--- OUTSIDE RECORDS SUMMARY | ~2019-06-17 | XMS | Encounter Summary ---
Demographics + + + | Address | [address] | | | [place] [address] | + + + | Home Phone | | + + + | Preferred Language | Unknown | + + + | Marital Status | Single | + + + | Episcopal Affiliation | 1009 | + + + | Race | Unknown | + + + | Ethnic Group | Unknown | + + + Author + + + | Author | [facility] | | | and [place] | + + + | Organization | [facility] | | | and [place] [...] [place] | [place] | [place] [address] | | + + + + + | [place] | ECON | Unknown | | + + + + + Care Team Providers + +------+ + | Care Dehydrator Tender Name | Role | Phone | + +------+ + | Irving Rebolledo MD | PCP | | + +------+ + Encounter Details +--------+--------+ + + + | Date | Type | Department | Care Team | Description | +--------+--------+ + + + | 06/12/ | Intake | [facility] | | N/A | | 2020 | | [facility] [address] | | | | | | [facility] | | | | | | [place], [place] | | | | | | [address] | | | | | | [phone] | | | +--------+--------+ + + + Social History + +-------+ +--------+------+ | Tobacco Use | Types | Packs/Day | Years | Date | | | | | Used | | + +-------+ +--------+------+ | Never Assessed | | | | | + +-------+ +--------+------+ + + + | Sex Assigned at [...] + + documented as of this encounter Plan of Treatment Not on filedocumented as of this encounter Visit Diagnoses Not on filedocumented in this encounter Additional Health Concerns + + + + | Infection | Noted Time | Resolved Time | + + + + | Extended Spectrum Beta Lactamase | 06/15/2019 11:03 AM | | | | PDT | | + + + + documented as of this encounter"
--- OUTSIDE RECORDS SUMMARY | ~2019-06-17 | XMS | Encounter Summary ---
Demographics + + + | Address | [address] | | | [place] [address] | + + + | Home Phone | | + + + | Preferred Language | Unknown | + + + | Marital Status | Single | + + + | Scientologist Affiliation | 1009 | + + + | Race | Unknown | + + + | Ethnic Group | Unknown | + + + Author + + + | Author | [facility] | | | and [place] | + + + | Organization | [facility] | | | and [place] | [...] | Yuliya [place] | ECON | [place] [address] | | + + + + + | Eliza Good[place] | ECON | Unknown | | + + + + + Care Team Providers + +------+ + | Care Pressroom Foreman Name | Role | Phone | + +------+ + PCP | Unavailable | + +------+ + Encounter Details +--------+ + + + + | Date | Type | Department | Care Team | Description | +--------+ + + + + | 09/30/ | Hospital | [facility] | | | | 1993 | Encounter | [facility] | | | | | | [address] | | | | | | [place] | | | | | | [address] | | | | | | [phone] | | | +--------+ + + + [...] Visit Diagnoses Not on filedocumented in this encounter"
[2019-06-29] MEDS ORDERED: LIPITOR80 MG PO (12:14)
[2019-06-29] MEDS ORDERED: ASPIRIN EC81 MG PO (12:15)
[2019-06-29] MEDS ORDERED: METOPROLOL SUCC50 MG PO (12:15)
[2019-06-29] MEDS ORDERED: GLUCOTROL XL10 MG PO (12:16)
== END 2019-06-29 14:00 | disposition home or self-care (01) | DRG 728 ==
LOC: MS 14:46
PROVIDERS: ADMIT Student in an Organized Health Care Education/Training Program
DX: N49.2 Inflammatory disorders of scrotum (principal); Z16.12 Extended spectrum beta lactamase (ESBL) resistance; N39.0 Urinary tract infection, site not specified; I69.954 Hemiplegia and hemiparesis following unspecified cerebrovascular disease affecting left non-dominant side; I13.0 Hypertensive heart and chronic kidney disease with heart failure and stage 1 through stage 4 chronic kidney disease, or unspecified chronic kidney disease; I50.32 Chronic diastolic (congestive) heart failure; Z68.43 Body mass index [BMI] 50.0-59.9, adult; B96.1 Klebsiella pneumoniae [K. pneumoniae] as the cause of diseases classified elsewhere; I25.10 Atherosclerotic heart disease of native coronary artery without angina pectoris; E66.01 Morbid (severe) obesity due to excess calories; E11.42 Type 2 diabetes mellitus with diabetic polyneuropathy; E11.22 Type 2 diabetes mellitus with diabetic chronic kidney disease; N18.3 Chronic kidney disease, stage 3 (moderate); R41.0 Disorientation, unspecified; R33.9 Retention of urine, unspecified; Z79.84 Long term (current) use of oral hypoglycemic drugs; Z79.899 Other long term (current) drug therapy; Z88.5 Allergy status to narcotic agent; Z88.0 Allergy status to penicillin; Z88.8 Allergy status to other drugs, medicaments and biological substances
CPT/HCPCS: 36415; 51798; 80048; 82140; 83735; 84100; 85025; 97110; 97116; 97163; 97165; 97530; 97535; J1335; J1650; J1815; U0002